=== PATIENT | female | born 1945 | race Native Hawaiian/Other Pacific Islander ===

== ENCOUNTER 2016-11-09 12:43 | Inpatient (IN) | payer MEDICARE, OTHER ==
[2016-11-09] MEDS ORDERED: DUONEB 0.5-3 MG/3 ml Neb IH ONE ×2 (12:56→13:13)
--- NOTE | 2016-11-09 13:05 | ERPHSYRPT ---
- History of Present Illness Time Seen by Provider: 11/09/16 12:47 Source: patient Exam Limitations: no limitations Physician History: cough x 2 weeks; getting worse; fever and chills - hasn't measured; no travel; no exposures; cough productive green phleghm; non-smoker; some ALCALA not at rest; chest discomfort with coughing only; no orthopnea; sinus d/c; no prior hx; Timing/Duration: today (worse), week(s) (2), intermittent, gradual onset, worse Cough Quality/Degree: moderate, productive cough (green) Possible Cause: no prior episodes Modifying Factors: Improves With: coughing Associated Symptoms: fever, chills, chest pain/soreness (with coughing only), cough, nasal congestion, shortness of breath, sinus infection International travel in last 2 weeks: No Allergies/Adverse Reactions: cortisone Allergy (Severe, Verified 11/09/16 13:02) swelling of lips Home Medications: Aspirin 81 mg PO 11/09/16 [History] Lisinopril 20 mg PO 11/09/16 [History] - Review of Systems Constitutional: Fever, Chills, Malaise Eyes: No Symptoms Ears, Nose, & Throat: Nose Congestion, Throat Pain, No Ear Pain, No Epistaxis Respiratory: Cough, Dyspnea on Exertion (ALCALA), No Cyanosis, No Dyspnea, No Wheezing Cardiac: Chest Pain (with coughing only), No Edema, No Palpitations, No Syncope , No Orthopnea Abdominal/Gastrointestinal: Nausea, Diarrhea (slight loose stools x 2 days; ), No Abdominal Pain, No Vomiting, No Hematemesis, No Melena Genitourinary Symptoms: No Dysuria, No Hematuria, No Flank Pain, No Vaginal Bleeding Musculoskeletal: Arthralgias, No Back Pain, No Neck Pain, No Fall Skin: No Symptoms Neurological: No Symptoms Psychological: No Symptoms Endocrine: No Symptoms Hematologic/Lymphatic: No Symptoms Immunological/Allergic: No Symptoms - Past Medical History Pertinent Past Medical History: Yes Cardiac History: Congestive Heart Failure, Coronary Artery Disease, Hypertension Respiratory History: No Pertinent History Endocrine Medical History: No Pertinent History Musculoskeletal History: Arthritis GI Medical History: No Pertinent History History: No Pertinent History Psycho-Social History: No Pertinent History - Past Surgical History Past Surgical History: Yes Female Surgical History: Tubal Ligation Other Surgical History: ear tubes - Social History Smoking Status: Never smoker Exposure to second hand smoke: No Alcohol Use: None Drug Use: none Patient Lives Alone: Yes Significant Family History: heart disease, hypertension - Female History Hx Now: No - Nursing Vital Signs Nursing Vital Signs: Initial Vital Signs Temperature 98.6 F 11/09/16 12:46 Pulse Rate 76 11/09/16 12:46 Respiratory Rate 22 11/09/16 12:46 Blood Pressure 186/78 11/09/16 12:46 O2 Sat by Pulse Oximetry 92 L 11/09/16 12:46 Pain Scale Pain Intensity 0 - Physical Exam General Appearance: moderate distress, alert, obese Eye Exam: PERRL/EOMI, eyes nml inspection, No photophobia Ears, Nose, Throat Exam: normal ENT inspection, TMs normal, pharynx normal, moist mucous membranes, No tonsillar exudate Neck Exam: normal inspection, non-tender, supple, full range of motion, JVD ( borderline), No meningismus, No carotid bruit, No lymphadenopathy, No subcutaneous emphysema Respiratory Exam: respiratory distress (mild tachypnea), airway intact, diminished breath sounds, crackles/rales (bases), wheezing (end expiratory), No chest tenderness, No prolonged expirations, No rhonchi, No pleural rub Cardiovascular Exam: regular rate/rhythm, normal heart sounds, normal peripheral pulses, capillary refill 2-3 sec, No murmur, No friction rub, No edema Gastrointestinal/Abdomen Exam: soft, normal bowel sounds, No tenderness, No distention, No guarding, No pulsatile mass, No rebound, No organomegaly Pelvic Exam: not done Rectal Exam: deferred Back Exam: normal inspection, normal range of motion, No CVA tenderness, No vertebral tenderness, No rash Extremity Exam: normal inspection, normal range of motion, No pelvis stable, No cameron's sign, No pedal edema Neurologic Exam: alert, oriented x 3, cooperative, 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, normal mood/affect, nml cerebellar function, nml station & gait Skin Exam: normal color, warm, dry, No rash, No petechiae, No cyanosis Lymphatic Exam: No adenopathy SpO2 Interpretation: borderline oxygenation SpO2: 94 Oxygen Delivery: Room Air - Course Nursing assessment & vital signs reviewed: Yes EKG Interpreted by Me: RATE (77), Sinus Rhythm, NORMAL AXIS, NORMAL INTERVALS, NORMAL QRS, Non-specific ST Changes (T wave inversion !; AVL; V3-V6; ) Rhythm Strip: Rate (76), Normal Sinus Rhythm - Radiology Exams Chest X-ray Interpretation: Interpreted by me, No Pneumonia, No Pneumothorax, Nml Heart Size, No Infiltrates, Other (multiple calcified granulomas) - CT Exams Chest CT Interpretation: Tele-radiologist Report, Other (no PE; old changes ) Ordered Tests: Active Orders 24 hr Category Date Time Status Bedrest with BRP/BSC ROUTINE Activity 11/09/16 15:59 Ordered Admission/Status Order ROUTINE Care 11/09/16 15:59 Ordered Oncologist STAT Care 11/09/16 12:56 Active Code Status Order ROUTINE Care 11/09/16 15:59 Ordered EKG-ER Only STAT Care 11/09/16 12:56 Active Fall Protocol ROUTINE Care 11/09/16 16:00 Ordered IV Care Q6H Care 11/09/16 15:59 Ordered IV Insertion STAT Care 11/09/16 12:56 Active Oxygen-ED Only NASAL CANNULA 2 lpm Care 11/09/16 14:08 Active Pulse Oximetry (ED) STAT Care 11/09/16 12:56 Active Hernando Hose, Apply ROUTINE Care 11/09/16 15:59 Ordered Telemetry ROUTINE Care 11/09/16 15:59 Ordered Weight,Daily 0600 Care 11/09/16 15:59 Ordered Cardiac Diet Diet 11/09/16 Dinner Ordered CHEST 1 VIEW (PORTABLE) Stat Exams 11/09/16 12:56 Taken CHEST WITH CONTRAST [CT] Stat Exams 11/09/16 13:47 Taken BLOOD CULTURE Stat Lab 11/09/16 15:51 Ordered CBC W DIFF Stat Lab 11/09/16 13:18 Completed CMP Stat Lab 11/09/16 13:18 Completed CULTURE,SPUTUM Stat Lab 11/09/16 14:00 Received D-DIMER QUANTITATION Stat Lab 11/09/16 13:18 Completed Lactic Acid Stat Lab 11/09/16 Completed NT PRO BNP Stat Lab 11/09/16 13:18 Completed PROTIME WITH INR Stat Lab 11/09/16 13:18 Completed TROPONIN Q3H Lab 11/09/16 13:18 Completed TROPONIN Q3H Lab 11/09/16 16:00 Ordered TROPONIN Q3H Lab 11/09/16 19:00 Ordered TROPONIN Q3H Lab 11/09/16 22:00 Ordered TROPONIN Q3H Lab 11/10/16 01:00 Ordered Oxygen NASAL CANNULA 2 lpm RT 11/09/16 15:59 Ordered Peak Expiratory Flow Rate BEFORE&AFTER NEB TX RT 11/09/16 16:00 Ordered Peak Expiratory Flow Rate ONCE RT 11/09/16 12:56 Completed Pulse Oximetry CONTINUOUS RT 11/09/16 16:00 Ordered Respiratory Nebulizer Q4H RT 11/09/16 15:59 Ordered Respiratory Nebulizer STAT RT 11/09/16 12:59 Completed Respiratory Therapy Consult ROUTINE RT 11/09/16 15:59 Ordered Transfer Order Routine Transfer 11/09/16 Ordered Medication Summary Generic Name Dose Route Start Last Admin Trade Name Freq PRN Reason Stop Dose Admin Ceftriaxone Sodium/Dextrose 1 g in 50 mls @ 100 mls/hr 11/09/16 15:52 Rocephin 1 Gm-D5w 50 Ml Bag IV 11/09/16 16:21 STAT STA Discontinued Medications Generic Name Dose Route Start Last Admin Trade Name Freq PRN Reason Stop Dose Admin Albuterol/Ipratropium 3 ml 11/09/16 12:56 11/09/16 13:10 Duoneb 0.5-3 Mg/3 Ml Neb IH 11/09/16 12:57 3 ml STAT ONE Administration Albuterol/Ipratropium Confirm 11/09/16 13:13 Duoneb 0.5-3 Mg/3 Ml Neb Administered 11/09/16 13:14 Dose 3 ml IH .STK-MED ONE Captopril 25 mg 11/09/16 14:17 11/09/16 14:21 Captopril 25 Mg PO 11/09/16 14:18 25 mg STAT ONE Administration Captopril Confirm 11/09/16 14:19 Captopril 25 Mg Administered 11/09/16 14:20 Dose 25 mg .ROUTE .STK-MED ONE Nitroglycerin 1 gm 11/09/16 14:17 11/09/16 14:21 Nitro-Bid 2% Ud Packets TOP 11/09/16 14:18 1 gm STAT ONE Administration Nitroglycerin Confirm 11/09/16 14:19 Nitro-Bid 2% Ud Packets Administered 11/09/16 14:20 Dose 1 gm .ROUTE .STK-MED ONE Lab/Rad Data: Laboratory Result Diagrams 11/09/16 13:18 11/09/16 13:18 Laboratory Results 11/09/16 11/09/16 11/09/16 Range/Units Unknown 13:18 13:18 WBC (4.0-10.5) K/mm3 RBC (4.1-5.4) M/mm3 Hgb (12.0-16.0) gm/dl Hct (35-47) % MCV (78-100) fl MCH (26-32) pg MCHC (32-36) g/dl RDW (11.5-14.0) % Plt Count (150-450) K/mm3 MPV (6-9.5) fl Gran % (36.0-66.0) % Lymphocytes % (24.0-44.0) % Monocytes % (0.0-12.0) % Eosinophils % (0.00-5.0) % Basophils % (0.0-0.4) % Basophils # (0-0.4) INR (0.8-3.0) D-Dimer (0-500) ng/mL Sodium (136-145) mEq/L Potassium (3.5-5.1) mEq/L Chloride (98-107) mEq/L Carbon Dioxide (21-32) mEq/L Anion Gap (5-15) MEQ/L BUN (9-20) mg/dL Creatinine (0.55-1.30) mg/dl Estimated GFR ML/MIN Glucose (70-110) MG/DL Lactic Acid 1.1 (0.4-2.0) Calcium (8.5-10.1) mg/dL Total Bilirubin (0.2-1.0) mg/dL AST (15-37) U/L ALT (12-78) U/L Alkaline Phosphatase (46-116) U/L Troponin I < 0.017 (0.000-0.056) ng/ml NT-Pro-B Natriuret Pep (0-125) pg/ml Serum Total Protein (6.4-8.2) gm/dL Albumin (3.4-5.0) g/dL Influenza Type A Ag NEGATIVE (NEGATIVE) Influenza Type B Ag NEGATIVE (NEGATIVE) RSV (PCR) NEGATIVE (Negative) 11/09/16 11/09/16 11/09/16 Range/Units 13:18 13:18 13:18 WBC 15.4 H (4.0-10.5) K/mm3 RBC 5.17 (4.1-5.4) M/mm3 Hgb 15.4 (12.0-16.0) gm/dl Hct 46.9 (35-47) % MCV 90.7 (78-100) fl MCH 29.8 (26-32) pg MCHC 32.8 (32-36) g/dl RDW 13.1 (11.5-14.0) % Plt Count 244 (150-450) K/mm3 MPV 10.6 H (6-9.5) fl Gran % 64.0 (36.0-66.0) % Lymphocytes % 24.5 (24.0-44.0) % Monocytes % 9.3 (0.0-12.0) % Eosinophils % 1.9 (0.00-5.0) % Basophils % 0.3 (0.0-0.4) % Basophils # 0.05 (0-0.4) INR 1.11 (0.8-3.0) D-Dimer 628 H* (0-500) ng/mL Sodium 141 (136-145) mEq/L Potassium 3.7 (3.5-5.1) mEq/L Chloride 103 (98-107) mEq/L Carbon Dioxide 28.5 (21-32) mEq/L Anion Gap 13.4 (5-15) MEQ/L BUN 11 (9-20) mg/dL Creatinine 0.78 (0.55-1.30) mg/dl Estimated GFR > 60 ML/MIN Glucose 123 H (70-110) MG/DL Lactic Acid (0.4-2.0) Calcium 9.3 (8.5-10.1) mg/dL Total Bilirubin 0.60 (0.2-1.0) mg/dL AST 22 (15-37) U/L ALT 18 (12-78) U/L Alkaline Phosphatase 105 (46-116) U/L Troponin I (0.000-0.056) ng/ml NT-Pro-B Natriuret Pep 823 H (0-125) pg/ml Serum Total Protein 7.5 (6.4-8.2) gm/dL Albumin 3.8 (3.4-5.0) g/dL Influenza Type A Ag (NEGATIVE) Influenza Type B Ag (NEGATIVE) RSV (PCR) (Negative) reviewed - Progress Progress: improved (after respiratory treatment), re-examined (after meds and xr ) Air Movement: fair, good (air movement after duo neb treatment) Progress Note: 11/09/16 13:09 EKG non-specific; no STEMI; T wave inverted !; AVL; V3-V6; CXR and lab pending; will give duo neb and check peak flow and recheck 11/09/16 13:25 peak flow pre and post 170; coughs when takes a deep breath; moving air well; a few scattered broncho-vesicular BS but otherwise clear after, CXR NAD; lactic wnl; VS improved; will monitor and recheck 11/09/16 13:40 Resting comfortably; moving air well; pulse ox 90% on room air but no complaint of SOB; no increase in respiratory distress; vital signs stable; breath sounds clear;we'll continue to monitor ; CBC shows an elevated white count of 15.4 11/09/16 13:52 D Dimer elevated and CT with contrast ordered to evaluate for PE 11/09/16 14:08 INR ok; recheck shows pulse ox dropped to 87-88 so placed patient on 2 l O2; sats improved to 92%; cT pending renal lab results; explained labs results to patient; 11/09/16 14:12 Troponin wnl 11/09/16 14:16 renal function ok and will proceed with CT; pBNP elevated so will give some NTG and captopril and recheck 11/09/16 14:46 INflu all neg and rsv neg; patient in CT ; results pending; will monitor and recheck 11/09/16 15:[address]; tolerated well; Sats now 97% on 2 l nc; vs ok; moving air better; results pending; will monitor and recheck 11/09/16 15:56 CT neg for PE; discussed findings and treatment plan with patient; concurs with admission due to hypoxia on room air; Dr Jimenez on service consulted and will admit. Bed requested. writing orders Blood Culture(s) Obtained: Yes Antibiotics given: Yes (rocephin) Discussed with : Mando (consulted on service and accepted for admission) Counseled pt/family regarding: lab results, diagnosis, need for follow-up, rad results - Departure Time of Disposition: 15:57 Departure Disposition: Observation Clinical Impression: Hypoxia, Acute bronchiolitis, Dyspnea and respiratory abnormalities Condition: Serious Critical Care Time: Yes Critical Care Time(excluding separately billable procedures): 30-74 minutes Referrals: DOCTOR,NO FAMILY [Primary Care Provider] - KALPESH JIMENEZ MD [ACTIVE STAFF] -
[2016-11-09 13:23] LABS: BASOPHIL % 0.3 % (0.0-0.4); Eosinophil % 1.9 % (0.00-5.0); Lymphocytes % 24.5 % (24.0-44.0); Mean Cell Volume 90.7 fl (78-100); Mean Corpuscular Hemoglobin 29.8 pg (26-32); Mean Platelet Volume 10.6 fl (6-9.5); Monocytes % 9.3 % (0.0-12.0); Platelet Count 244 K/mm3 (150-450); Red Blood Count 5.17 M/mm3 (4.1-5.4); Red Cell Distribution Width 13.1 % (11.5-14.0); White Blood Count 15.4 K/mm3 (4.0-10.5)
[2016-11-09 13:33] LABS: INR 1.11 (0.8-3.0); PROTIME 12.6 SECONDS (9.95-12.35)
[2016-11-09 13:49] LABS: ALBUMIN 3.8 g/dL (3.4-5.0); ALKALINE PHOSPHATASE 105 U/L (46-116); ANION GAP 13.4 MEQ/L (5-15); BLOOD UREA NITROGEN 11 mg/dL (9-20); CHLORIDE 103 mEq/L (98-107); Carbon Dioxide 28.5 mEq/L (21-32); Glucose 123 MG/DL (70-110); Potassium 3.7 mEq/L (3.5-5.1); SGOT/AST 22 U/L (15-37); SGPT/ALT 18 U/L (12-78); SODIUM 141 mEq/L (136-145); Total Protein 7.5 gm/dL (6.4-8.2)
[2016-11-09] MEDS ORDERED: CAPTOPRIL 25 MG PO ONE (14:17)
[2016-11-09] MEDS ORDERED: NITRO-BID 2% UD PACKETS TOP ONE (14:17)
[2016-11-09] MEDS ORDERED: CAPTOPRIL 25 MG ONE (14:19)
[2016-11-09] MEDS ORDERED: NITRO-BID 2% UD PACKETS ONE (14:19)
[2016-11-09] MEDS ORDERED: ROCEPHIN 1 Gm-D5w 50 ml Bag** 1 G/50 ML IVPB IV STA (15:52)
[2016-11-09] MEDS ORDERED: Sodium Chloride 0.9% 1000 ML 1,000 ML IV SCH (16:00)
[2016-11-09] MEDS ORDERED: ROCEPHIN 1 Gm-D5w 50 ml Bag** 1 G/50 ML IVPB IV ONE (16:12)
[2016-11-09] MEDS ORDERED: Zithromax 500 MG/ 250 ML NaCl Premix 500 MG/250 ML IVPB IV STA (16:19)
[2016-11-09] MEDS ORDERED: Zithromax 500 MG/ 250 ML NaCl Premix 500 MG/250 ML IVPB IV ONE (16:24)
[2016-11-09] MEDS ORDERED: DUONEB 0.5-3 MG/3 ml Neb IH PRN (17:08)
[2016-11-09] MEDS ORDERED: Zofran 4 MG/2 ML VIAL IV PRN (17:48)
[2016-11-09] MEDS: Sodium Chloride 0.9% 1000 ML 1,000 ML IV SCH (17:50)
[2016-11-09] MEDS ORDERED: Zithromax 500 MG/ 250 ML NaCl Premix 500 MG/250 ML IVPB IV SCH (18:00)
[2016-11-09] MEDS ORDERED: DUONEB 0.5-3 MG/3 ml Neb IH SCH (19:00)
[2016-11-09] MEDS ORDERED: ENOXAPARIN SODIUM SQ SCH (20:00)
--- NOTE | 2016-11-09 21:21 | XRAY ---
Indication: Cough, short of breath, and elevated d-dimer. Multiple contiguous axial images obtained through the chest using 80 cc of Isovue-370 contrast and PE protocol. Comparison: None There is good opacification of the pulmonary arteries including the lobar and segmental branches. No filling defect or pulmonary embolus. Heart is not enlarged. Aorta is minimally arteriosclerotic without aneurysm/dissection. Right hilar calcified nodes. No pathologic mediastinal/hilar lymphadenopathy. Small hiatal hernia. Examination of the lung parenchyma demonstrates minimal bibasilar fibrosis/scarring and right lower lobe calcified granuloma. No infiltrate, consolidation, or effusion. Bony thorax intact with minimal degenerative changes throughout the spine. Limited upper abdomen demonstrates fatty liver and calcified splenic granulomas. Impression: 1. Negative for pulmonary embolus or acute cardiopulmonary abnormalities. 2. Incidental small hiatal hernia, fatty liver, and evidence for old granulomatous disease. Comment: Preliminary interpretation was made by [facility]. No discrepancy. CTDI 23.17
--- NOTE | 2016-11-09 21:21 | XRAY ---
Indication: Cough. Comparison: None Portable chest demonstrates normal heart and lungs with incidental calcified granulomas. Bony thorax intact.
[2016-11-09] MEDS: Pepcid 20 MG VIAL IV SCH (21:47)
[2016-11-09] MEDS: ENOXAPARIN SODIUM SQ SCH (21:47)
[2016-11-09] MEDS ORDERED: Pepcid 20 MG VIAL IV SCH (22:00)
[2016-11-09] MEDS ORDERED: Zestril 20 MG PO ONE (22:00)
[2016-11-09] MEDS ORDERED: ECOTRIN 81 MG PO ONE (22:00)
[2016-11-10] MEDS ORDERED: Tussionex Pennkinetic Susp PO PRN (01:05)
[2016-11-10 05:43] LABS: Mean Cell Volume 92.3 fl (78-100); Mean Corpuscular Hemoglobin 29.6 pg (26-32); Platelet Count 234 K/mm3 (150-450); Red Blood Count 4.67 M/mm3 (4.1-5.4); White Blood Count 13.9 K/mm3 (4.0-10.5)
[2016-11-10 06:30] LABS: ALKALINE PHOSPHATASE 79 U/L (46-116); ANION GAP 10.7 MEQ/L (5-15); BLOOD UREA NITROGEN 12 mg/dL (9-20); CHLORIDE 105 mEq/L (98-107); Carbon Dioxide 29.8 mEq/L (21-32); Glucose 131 MG/DL (70-110); Potassium 3.6 mEq/L (3.5-5.1); SGOT/AST 16 U/L (15-37); SGPT/ALT 16 U/L (12-78); SODIUM 142 mEq/L (136-145); Total Protein 6.7 gm/dL (6.4-8.2)
--- NOTE | 2016-11-10 08:09 | PCM.HP ---
History of Present Illness - Chief Complaint Chief Complaint: Hypoxia; Acute Bronchiolitis;Dypsnea History of Present Illness: is a 70 year old female with no local physician who reports to the ER with 1 week history of cough with green sputum production, shortness of breath and wheezing. She is a nonsmoker but previously used tobacco, her is a longtime smoker with advanced copd. She has some sharp pain in the anterior chest with cough. - Review of Systems Constitutional: No Fever, No Chills Ears, Nose, & Throat: No Symptoms Respiratory: Cough, Short Of Breath Cardiac: Chest Pain Abdominal/Gastrointestinal: No Abdominal Pain, No Nausea, No Vomiting, No Diarrhea Genitourinary Symptoms: No Dysuria Skin: No Rash All Other Systems: Reviewed and Negative Medications & Allergies Home Medications: Home Medication List Aspirin 81 mg PO DAILY 11/09/16 [History Confirmed 11/09/16] Lisinopril 20 mg PO DAILY 11/09/16 [History Confirmed 11/09/16] Allergies/Adverse Reactions: Allergies Allergy/AdvReac Type Severity Reaction Status Date / Time cortisone Allergy Severe swelling Verified 11/09/16 13:02 of lips - Past Medical History Past Medical History: Yes Neurological History: No Pertinent History ENT History: No Pertinent History Cardiac History: Congestive Heart Failure, Coronary Artery Disease, Hypertension Respiratory History: No Pertinent History Endocrine Medical History: No Pertinent History Musculoskelatal History: Arthritis GI Medical History: No Pertinent History History: No Pertinent History Pyscho-Social History: No Pertinent History Reproductive Disorders: No Pertinent History Comment: myopathy - Female History Hx Last Menstrual Period: menopause Are you now?: No - Past Surgical History Past Surgical History: Yes Neuro Surgical History: No Pertinent History Cardiac History: Internal Defibrillator Respiratory Surgery: No Pertinent History GI Surgical History: No Pertinent History Genitourinary Surgical Hx: No Pertinent History Musculskeletal Surgical Hx: No Pertinent History Female Surgical History: Tubal Ligation Other Surgical History: ear tubes - Social History Smoking Status: Former smoker How long have you smoked: 10-15 year Exposure to second hand smoke: Yes Alcohol: None Drug Use: none Significant Family History: heart disease, hypertension - Physical Exam Vital Signs: Vital Signs - 24 hr Temp Pulse Resp BP Pulse Ox 11/10/16 07:36 98.8 F 89 20 174/82 96 11/10/16 07:19 74 18 96 11/10/16 04:00 98.1 F 78 20 184/77 95 11/10/16 00:00 98.7 F 75 20 184/79 97 11/09/16 19:42 98.4 F 73 22 176/74 92 L 11/09/16 18:40 83 18 93 L 11/09/16 17:14 98.4 F 74 18 156/72 93 L 11/09/16 17:10 74 18 94 L 11/09/16 16:09 79 16 183/78 92 L 11/09/16 16:02 94 L 11/09/16 15:10 78 20 194/88 94 L 11/09/16 14:24 80 20 210/70 96 11/09/16 14:09 80 18 185/65 92 L 11/09/16 13:37 88 18 178/77 90 L 11/09/16 13:08 94 L 11/09/16 12:59 77 18 92 L 11/09/16 12:46 98.6 F 76 20 186/78 94 L Oxygen-Last 24 hours O2 Percentage 2 Liters = 28% O2 Percentage 2 Liters = 28% O2 Percentage 2 Liters = 28% O2 Percentage 2 Liters = 28% O2 Percentage 2 Liters = 28% O2 Percentage 2 Liters = 28% O2 Percentage 2 Liters = 28% O2 Percentage 2 Liters = 28% O2 Percentage 2 Liters = 28% General Appearance: no apparent distress, alert Eye Exam: PERRL/EOMI, eyes nml inspection Respiratory Exam: prolonged expirations, wheezing Cardiovascular Exam: regular rate/rhythm, normal heart sounds, normal peripheral pulses Gastrointestinal/Abdomen Exam: soft, normal bowel sounds, No tenderness, No mass Extremity Exam: normal inspection, normal range of motion, pelvis stable Skin Exam: normal color, warm, dry, No rash Results - Labs Lab/Micro Results: Lab Results-Last 24 Hours 11/09/16 11/09/16 11/09/16 Range/Units 19:10 22:05 Unknown WBC (4.0-10.5) K/mm3 RBC (4.1-5.4) M/mm3 Hgb (12.0-16.0) gm/dl Hct (35-47) % MCV (78-100) fl MCH (26-32) pg MCHC (32-36) g/dl RDW (11.5-14.0) % Plt Count (150-450) K/mm3 MPV (6-9.5) fl Sodium (136-145) mEq/L Potassium (3.5-5.1) mEq/L Chloride (98-107) mEq/L Carbon Dioxide (21-32) mEq/L Anion Gap (5-15) MEQ/L BUN (9-20) mg/dL Creatinine (0.55-1.30) mg/dl Estimated GFR ML/MIN Glucose (70-110) MG/DL Lactic Acid 1.1 (0.4-2.0) Calcium (8.5-10.1) mg/dL Total Bilirubin (0.2-1.0) mg/dL AST (15-37) U/L ALT (12-78) U/L Alkaline Phosphatase (46-116) U/L Troponin I < 0.017 < 0.017 (0.000-0.056) ng/ml Serum Total Protein (6.4-8.2) gm/dL Albumin (3.4-5.0) g/dL 11/10/16 11/10/16 11/10/16 Range/Units 00:55 05:06 05:06 WBC 13.9 H (4.0-10.5) K/mm3 RBC 4.67 (4.1-5.4) M/mm3 Hgb 13.8 (12.0-16.0) gm/dl Hct 43.1 (35-47) % MCV 92.3 (78-100) fl MCH 29.6 (26-32) pg MCHC 32.0 (32-36) g/dl RDW 13.0 (11.5-14.0) % Plt Count 234 (150-450) K/mm3 MPV 11.0 H (6-9.5) fl Sodium 142 (136-145) mEq/L Potassium 3.6 (3.5-5.1) mEq/L Chloride 105 (98-107) mEq/L Carbon Dioxide 29.8 (21-32) mEq/L Anion Gap 10.7 (5-15) MEQ/L BUN 12 (9-20) mg/dL Creatinine 0.76 (0.55-1.30) mg/dl Estimated GFR > 60 ML/MIN Glucose 131 H (70-110) MG/DL Lactic Acid (0.4-2.0) Calcium 8.7 (8.5-10.1) mg/dL Total Bilirubin 0.50 (0.2-1.0) mg/dL AST 16 (15-37) U/L ALT 16 (12-78) U/L Alkaline Phosphatase 79 (46-116) U/L Troponin I < 0.017 (0.000-0.056) ng/ml Serum Total Protein 6.7 (6.4-8.2) gm/dL Albumin 3.0 L (3.4-5.0) g/dL - Other Procedures and Tests Respiratory Therapy 11/09/16 17:09 Oxygen NASAL CANNULA 2 lpm Respiratory Nebulizer UD Assessment/Plan (1) Acute bronchitis with bronchospasm Current Visit: Yes Status: Acute Assessment & Plan: continue rocphin/zithromax, nebs and add solumedrol Code(s): J20.9 - ACUTE BRONCHITIS, UNSPECIFIED (2) Hypoxia Current Visit: Yes Status: Acute Assessment & Plan: likely has an underlying element of copd, will treat exacerbation as above, currently on supplemental oxygen Code(s): R09.02 - HYPOXEMIA (3) Hypertension Current Visit: Yes Status: Acute Assessment & Plan: on lisinopril Code(s): I10 - ESSENTIAL (PRIMARY) HYPERTENSION
[2016-11-10] MEDS ORDERED: solu-MEDROL 125 MG IV SCH (08:30)
[2016-11-10 08:53] LABS: Eosinophil 1 % (0.00-3.0); Total Cells Counted 100
[2016-11-10 08:54] LABS: Platelet Estimate NORMAL (NORMAL)
[2016-11-10] MEDS: DUONEB 0.5-3 MG/3 ml Neb IH SCH ×4 (09:08→22:55)
[2016-11-10] MEDS: ENOXAPARIN SODIUM SQ SCH (09:53)
[2016-11-10] MEDS: ECOTRIN 81 MG PO SCH (09:54)
[2016-11-10] MEDS: Pepcid 20 MG VIAL IV SCH ×2 (09:54→21:48)
[2016-11-10] MEDS: Zestril 20 MG PO SCH (09:54)
[2016-11-10] MEDS ORDERED: ROCEPHIN 1 Gm-D5w 50 ml Bag** 1 G/50 ML IVPB IV SCH (10:00)
[2016-11-10] MEDS ORDERED: NON-FORMULARY ITEM (Aspirin [Aspirin] 81 MG) PO SCH (10:00)
[2016-11-10] MEDS: Tussionex Pennkinetic Susp PO PRN (13:07)
[2016-11-10] MEDS: NORVASC 5 MG PO SCH (13:07)
[2016-11-10] MEDS: Sodium Chloride 0.9% 1000 ML 1,000 ML IV SCH (13:07)
[2016-11-10] MEDS ORDERED: PROVENTIL 2.5 MG/3 ML NEB IH PRN (14:43)
[2016-11-10] MEDS: ROCEPHIN 1 Gm-D5w 50 ml Bag** 1 G/50 ML IVPB IV SCH (15:04)
[2016-11-10] MEDS: Zithromax 500 MG/ 250 ML NaCl Premix 500 MG/250 ML IVPB IV SCH (17:02)
[2016-11-11] MEDS: DUONEB 0.5-3 MG/3 ml Neb IH SCH ×6 (02:57→23:20)
[2016-11-11 05:42] LABS: BASOPHIL % 0.2 % (0.0-0.4); Eosinophil % 1.8 % (0.00-5.0); Mean Corpuscular Hemoglobin 29.8 pg (26-32); Platelet Count 228 K/mm3 (150-450); White Blood Count 13.7 K/mm3 (4.0-10.5)
[2016-11-11 06:06] LABS: ALKALINE PHOSPHATASE 79 U/L (46-116); ANION GAP 11.2 MEQ/L (5-15); BLOOD UREA NITROGEN 10 mg/dL (9-20); CHLORIDE 105 mEq/L (98-107); Carbon Dioxide 28.6 mEq/L (21-32); Glucose 161 MG/DL (70-110); Potassium 3.5 mEq/L (3.5-5.1); SGOT/AST 16 U/L (15-37); SGPT/ALT 15 U/L (12-78); SODIUM 141 mEq/L (136-145); Total Protein 6.8 gm/dL (6.4-8.2)
--- NOTE | 2016-11-11 08:21 | PCM.NOTE ---
Date and Time: 11/11/16818 Subjective Assessment: patient still has significant cough, no new complaints. still requiring oxygen Objective Exam General Appearance: no apparent distress, alert Skin Exam: normal color, warm, dry Respiratory Exam: prolonged expirations, rhonchi, No wheezing Cardiovascular Exam: regular rate/rhythm, normal heart sounds Gastrointestinal/Abdomen Exam: soft, No tenderness, No mass Extremity Exam: normal inspection, normal range of motion OBJECTIVE DATA Vital Signs: Vital Signs - 24 hr Temp Pulse Resp BP Pulse Ox 11/11/16 07:55 98.2 F 79 16 192/78 96 11/11/16 07:00 74 18 96 11/11/16 04:14 98.8 F 85 20 191/79 98 11/11/16 02:59 92 H 22 11/10/16 23:41 98.3 F 91 H 18 181/75 94 L 11/10/16 22:55 88 24 96 11/10/16 20:00 98.9 F 92 H 20 184/74 92 L 11/10/16 18:34 84 24 96 11/10/16 16:00 98.5 F 81 20 186/76 94 L 11/10/16 14:41 79 22 91 L 11/10/16 12:00 74 22 187/79 96 11/10/16 10:57 97.8 F 75 20 194/81 95 11/10/16 09:10 96 H 18 97 Oxygen-Last 24 hours O2 Percentage 2 Liters = 28% O2 Percentage 2 Liters = 28% O2 Percentage 2 Liters = 28% O2 Percentage 2 Liters = 28% O2 Percentage 2 Liters = 28% O2 Percentage 2 Liters = 28% O2 Percentage 2 Liters = 28% Pain Assessment - Last Documented Pain Intensity 0 [facility] Intake and Output: Intake & Output 11/08/16 11/09/16 11/10/16 11/11/16 11:59 11:59 11:59 11:59 Intake Total 1583 2389 Balance 1583 2389 Weight 94.347 kg 95.481 kg Lab Results: Lab Results-Last 24 Hours 11/10/16 11/11/16 11/11/16 Range/Units 05:06 05:00 05:00 WBC 13.7 H (4.0-10.5) K/mm3 RBC 4.30 (4.1-5.4) M/mm3 Hgb 12.8 (12.0-16.0) gm/dl Hct 40.0 (35-47) % MCV 93.0 (78-100) fl MCH 29.8 (26-32) pg MCHC 32.0 (32-36) g/dl RDW 13.0 (11.5-14.0) % Plt Count 228 (150-450) K/mm3 MPV 11.0 H (6-9.5) fl Gran % 66.0 (36.0-66.0) % Lymphocytes % 22.0 L (24.0-44.0) % Monocytes % 10.0 (0.0-12.0) % Eosinophils % 1.8 (0.00-5.0) % Basophils % 0.2 (0.0-0.4) % Segmented Neutrophils 59 (36.0-66.0) % Lymphocytes (Manual) 32 (24-44) % Monocytes (Manual) 8 (0.0-12.0) % Eosinophils (Manual) 1 (0.00-3.0) % Basophils # 0.03 (0-0.4) Differential Comment NORMAL Platelet Estimate NORMAL (NORMAL) Sodium 141 (136-145) mEq/L Potassium 3.5 (3.5-5.1) mEq/L Chloride 105 (98-107) mEq/L Carbon Dioxide 28.6 (21-32) mEq/L Anion Gap 11.2 (5-15) MEQ/L BUN 10 (9-20) mg/dL Creatinine 0.83 (0.55-1.30) mg/dl Estimated GFR > 60 ML/MIN Glucose 161 H (70-110) MG/DL Calcium 8.6 (8.5-10.1) mg/dL Total Bilirubin 0.30 (0.2-1.0) mg/dL AST 16 (15-37) U/L ALT 15 (12-78) U/L Alkaline Phosphatase 79 (46-116) U/L Serum Total Protein 6.8 (6.4-8.2) gm/dL Albumin 3.0 L (3.4-5.0) g/dL Multi-Disciplinary Progress Notes: Multi-Disciplinary Progress Notes 11/10/16 14:50 Respiratory Note by Angela Amador HUMIDITY ADDED TO OXYGEN Initialized on 11/10/16 14:50 - END OF NOTE Assessment/Plan (1) Acute bronchitis with bronchospasm Current Visit: Yes Status: Acute Assessment & Plan: breath sounds improved, continue rocephin/zithromax and nebulizer treatments Code(s): J20.9 - ACUTE BRONCHITIS, UNSPECIFIED (2) Hypoxia Current Visit: Yes Status: Acute Code(s): R09.02 - HYPOXEMIA (3) Hypertension Current Visit: Yes Status: Acute Assessment & Plan: added amlodipine 5mg yesterday, has had 1 dose, currently on lisinopril home dose Code(s): I10 - ESSENTIAL (PRIMARY) HYPERTENSION
[2016-11-11] MEDS: ENOXAPARIN SODIUM SQ SCH (10:18)
[2016-11-11] MEDS: ECOTRIN 81 MG PO SCH (10:19)
[2016-11-11] MEDS: Pepcid 20 MG VIAL IV SCH ×2 (10:19→21:13)
[2016-11-11] MEDS: NORVASC 5 MG PO SCH (10:19)
[2016-11-11] MEDS: Zestril 20 MG PO SCH (10:19)
[2016-11-11] MEDS: ROCEPHIN 1 Gm-D5w 50 ml Bag** 1 G/50 ML IVPB IV SCH (10:20)
[2016-11-11] MEDS: Sodium Chloride 0.9% 1000 ML 1,000 ML IV SCH (11:14)
[2016-11-11] MEDS: APRESOLINE 20 MG/ML INJ IV PRN ×2 (11:14→11:59)
[2016-11-11] MEDS ORDERED: Toprol-Xl 25MG Tablets PO ONE (13:25)
[2016-11-11] MEDS ORDERED: MORPHINE SULFATE 4 MG INJ IV PRN ×2 (13:26→19:06)
[2016-11-11] MEDS ORDERED: xanAX 0.5 MG PO PRN (15:32)
[2016-11-11] MEDS: Zithromax 500 MG/ 250 ML NaCl Premix 500 MG/250 ML IVPB IV SCH (16:37)
[2016-11-11] MEDS ORDERED: Tums EX 750 MG PO PRN (19:13)
[2016-11-11] MEDS ORDERED: LOPRESSOR 5 MG/5 ML INJECTION IV ONE (19:15)
[2016-11-11] MEDS ORDERED: Toprol Xl 100 MG PO ONE (19:20)
[2016-11-11] MEDS ORDERED: Ambien 10 MG PO ONE (22:00)
[2016-11-12] MEDS: DUONEB 0.5-3 MG/3 ml Neb IH SCH ×6 (03:20→23:09)
[2016-11-12 06:04] LABS: BASOPHIL % 0.2 % (0.0-0.4); Eosinophil % 1.9 % (0.00-5.0); Granulocytes % 65.4 % (36.0-66.0); Lymphocytes % 22.8 % (24.0-44.0); Mean Cell Volume 91.7 fl (78-100); Mean Corpuscular Hemoglobin 29.7 pg (26-32); Mean Platelet Volume 10.7 fl (6-9.5); Monocytes % 9.7 % (0.0-12.0); Platelet Count 243 K/mm3 (150-450); Red Blood Count 4.68 M/mm3 (4.1-5.4); Red Cell Distribution Width 13.1 % (11.5-14.0); White Blood Count 14.4 K/mm3 (4.0-10.5)
[2016-11-12 06:32] LABS: ALBUMIN 3.1 g/dL (3.4-5.0); ALKALINE PHOSPHATASE 82 U/L (46-116); ANION GAP 10.9 MEQ/L (5-15); BLOOD UREA NITROGEN 9 mg/dL (9-20); CHLORIDE 105 mEq/L (98-107); Carbon Dioxide 29.3 mEq/L (21-32); Glucose 135 MG/DL (70-110); Potassium 3.5 mEq/L (3.5-5.1); SGOT/AST 18 U/L (15-37); SGPT/ALT 15 U/L (12-78); SODIUM 142 mEq/L (136-145); Total Protein 7.2 gm/dL (6.4-8.2)
[2016-11-12] MEDS: Sodium Chloride 0.9% 1000 ML 1,000 ML IV SCH (08:04)
--- NOTE | 2016-11-12 08:55 | PCM.NOTE ---
Date and Time: 11/12/16850 Subjective Assessment: Pt is feeling just a little better today compared with yesterday. States her recovery seems slow. Sputum is more clear and less viscous. - Review of Systems Constitutional: No Fever Respiratory: Cough Objective Exam General Appearance: no apparent distress Neurologic Exam: alert, oriented x 3, cooperative, other (sitting at edge of bed ) Skin Exam: normal color, warm, dry Respiratory Exam: diminished breath sounds, No crackles/rales, No rhonchi Cardiovascular Exam: regular rate/rhythm, normal heart sounds, No murmur Extremity Exam: normal inspection, No pedal edema, No swelling OBJECTIVE DATA Vital Signs: Vital Signs - 24 hr Temp Pulse Resp BP Pulse Ox 11/12/16 06:52 97.9 F 78 20 180/88 96 11/12/16 03:27 79 18 91 L 11/11/16 23:48 80 18 88 L 11/11/16 20:10 83 18 93 L 11/11/16 20:00 98.5 F 91 H 22 201/91 94 L 11/11/16 16:00 98.3 F 87 20 179/76 90 L 11/11/16 14:41 90 22 94 L 11/11/16 12:00 98.2 F 80 18 195/82 93 L 11/11/16 10:48 80 18 93 L Oxygen-Last 24 hours O2 Percentage 2 Liters = 28% O2 Percentage 2 Liters = 28% O2 Percentage 2 Liters = 28% O2 Percentage 2 Liters = 28% Pain Assessment - Last Documented Pain Intensity 4 Pain Scale Used 0-10 Pain Scale Intake and Output: Intake & Output 11/09/16 11/10/16 11/11/16 11/12/16 11:59 11:59 11:59 11:59 Intake Total 240 2389 2161 Balance 240 2389 2161 Weight 95.481 kg 95.617 kg Lab Results: Lab Results-Last 24 Hours 11/11/16 11/11/16 11/12/16 Range/Units 15:01 15:01 05:50 WBC 14.4 H (4.0-10.5) K/mm3 RBC 4.68 (4.1-5.4) M/mm3 Hgb 13.9 (12.0-16.0) gm/dl Hct 42.9 (35-47) % MCV 91.7 (78-100) fl MCH 29.7 (26-32) pg MCHC 32.4 (32-36) g/dl RDW 13.1 (11.5-14.0) % Plt Count 243 (150-450) K/mm3 MPV 10.7 H (6-9.5) fl Gran % 65.4 (36.0-66.0) % Lymphocytes % 22.8 L (24.0-44.0) % Monocytes % 9.7 (0.0-12.0) % Eosinophils % 1.9 (0.00-5.0) % Basophils % 0.2 (0.0-0.4) % Basophils # 0.03 (0-0.4) D-Dimer 680 H* (0-500) ng/mL Sodium (136-145) mEq/L Potassium (3.5-5.1) mEq/L Chloride (98-107) mEq/L Carbon Dioxide (21-32) mEq/L Anion Gap (5-15) MEQ/L BUN (9-20) mg/dL Creatinine (0.55-1.30) mg/dl Estimated GFR ML/MIN Glucose (70-110) MG/DL Calcium (8.5-10.1) mg/dL Total Bilirubin (0.2-1.0) mg/dL AST (15-37) U/L ALT (12-78) U/L Alkaline Phosphatase (46-116) U/L Troponin I < 0.017 (0.000-0.056) ng/ml Serum Total Protein (6.4-8.2) gm/dL Albumin (3.4-5.0) g/dL 11/12/16 Range/Units 05:50 WBC (4.0-10.5) K/mm3 RBC (4.1-5.4) M/mm3 Hgb (12.0-16.0) gm/dl Hct (35-47) % MCV (78-100) fl MCH (26-32) pg MCHC (32-36) g/dl RDW (11.5-14.0) % Plt Count (150-450) K/mm3 MPV (6-9.5) fl Gran % (36.0-66.0) % Lymphocytes % (24.0-44.0) % Monocytes % (0.0-12.0) % Eosinophils % (0.00-5.0) % Basophils % (0.0-0.4) % Basophils # (0-0.4) D-Dimer (0-500) ng/mL Sodium 142 (136-145) mEq/L Potassium 3.5 (3.5-5.1) mEq/L Chloride 105 (98-107) mEq/L Carbon Dioxide 29.3 (21-32) mEq/L Anion Gap 10.9 (5-15) MEQ/L BUN 9 (9-20) mg/dL Creatinine 0.57 (0.55-1.30) mg/dl Estimated GFR > 60 ML/MIN Glucose 135 H (70-110) MG/DL Calcium 9.3 (8.5-10.1) mg/dL Total Bilirubin 0.40 (0.2-1.0) mg/dL AST 18 (15-37) U/L ALT 15 (12-78) U/L Alkaline Phosphatase 82 (46-116) U/L Troponin I (0.000-0.056) ng/ml Serum Total Protein 7.2 (6.4-8.2) gm/dL Albumin 3.1 L (3.4-5.0) g/dL Multi-Disciplinary Progress Notes: Multi-Disciplinary Progress Notes 11/11/16 10:15 (created 11/11/16 16:29) Case Management Note by Martine Mcwilliams DISCHARGE PLAN REVIEWED, PROVIDES SELF CARE, INDEPENDENT WITH ALL ADL'S. DECLINED NEEDS FOR DISCHARGE. PLAN TO RETURN HOME TO PRE EPISODIC LEVEL OF [facility]. Initialized on 11/11/16 16:29 - END OF NOTE Assessment/Plan (1) Acute bronchitis with bronchospasm Current Visit: Yes Status: Acute Assessment & Plan: She is slowly improving on rocephin and zithromax. Still on O2 2L NC. Will likely need at least another day or two of IV antibiotics. Sputum culture ordered. Code(s): J20.9 - ACUTE BRONCHITIS, UNSPECIFIED (2) Hypertension Current Visit: Yes Status: Acute Qualifiers: Hypertension type: essential hypertension Qualified Code(s): I10 - Essential (primary) hypertension Assessment & Plan: Uncontrolled. Amlodipine increased from 5mg po daily to 10mg po daily this morning. BP up in the 170s-200 systolic yesterday. Continue home dose lisinopril. Code(s): I10 - ESSENTIAL (PRIMARY) HYPERTENSION
[2016-11-12] MEDS: Zestril 20 MG PO SCH (09:42)
[2016-11-12] MEDS: ENOXAPARIN SODIUM SQ SCH (09:43)
[2016-11-12] MEDS: NORVASC 5 MG PO SCH (09:43)
[2016-11-12] MEDS: ECOTRIN 81 MG PO SCH (09:43)
[2016-11-12] MEDS: Pepcid 20 MG VIAL IV SCH ×2 (09:44→21:50)
[2016-11-12] MEDS: ROCEPHIN 1 Gm-D5w 50 ml Bag** 1 G/50 ML IVPB IV SCH (09:45)
[2016-11-12] MEDS: TYLENOL 325 MG PO PRN (09:46)
[2016-11-12] MEDS: Zithromax 500 MG/ 250 ML NaCl Premix 500 MG/250 ML IVPB IV SCH (17:11)
[2016-11-12] MEDS: Tussionex Pennkinetic Susp PO PRN (22:01)
[2016-11-13] MEDS: TYLENOL 325 MG PO PRN ×2 (02:21→21:01)
[2016-11-13] MEDS: DUONEB 0.5-3 MG/3 ml Neb IH SCH ×5 (03:30→19:22)
[2016-11-13] MEDS: Sodium Chloride 0.9% 1000 ML 1,000 ML IV SCH (06:58)
[2016-11-13] MEDS: Zestril 20 MG PO SCH ×2 (08:55→10:04)
[2016-11-13] MEDS: Pepcid 20 MG VIAL IV SCH ×2 (08:55→21:01)
[2016-11-13] MEDS: ROCEPHIN 1 Gm-D5w 50 ml Bag** 1 G/50 ML IVPB IV SCH (08:55)
[2016-11-13] MEDS: ENOXAPARIN SODIUM SQ SCH (08:55)
[2016-11-13] MEDS: NORVASC 5 MG PO SCH (08:55)
[2016-11-13] MEDS: ECOTRIN 81 MG PO SCH (08:55)
--- NOTE | 2016-11-13 09:13 | PCM.NOTE ---
Date and Time: 11/13/16910 Subjective Assessment: patient is still having significant cough, not feeling much better today. patient states bp is always high and current numbers 170 systolic are good for her Objective Exam General Appearance: no apparent distress, alert Respiratory Exam: normal breath sounds, lungs clear, No respiratory distress Cardiovascular Exam: regular rate/rhythm, normal heart sounds Gastrointestinal/Abdomen Exam: soft, No tenderness, No mass Extremity Exam: normal inspection, normal range of motion OBJECTIVE DATA Vital Signs: Vital Signs - 24 hr Temp Pulse Resp BP Pulse Ox 11/13/16 07:11 98 F 74 20 180/84 97 11/13/16 07:01 72 18 95 11/13/16 04:00 98.4 F 71 20 178/75 96 11/13/16 03:45 71 18 94 L 11/12/16 23:32 98.5 F 77 22 185/77 97 11/12/16 23:27 82 18 98 11/12/16 19:43 98.4 F 82 20 185/79 98 11/12/16 19:05 79 18 90 L 11/12/16 16:25 97.9 F 78 20 180/72 98 11/12/16 14:54 67 18 93 L 11/12/16 11:22 68 20 180/74 97 11/12/16 11:05 72 16 93 L Oxygen-Last 24 hours O2 Percentage 2 Liters = 28% O2 Percentage 2 Liters = 28% O2 Percentage 2 Liters = 28% O2 Percentage 2 Liters = 28% O2 Percentage 2 Liters = 28% Pain Assessment - Last Documented Pain Intensity 5 Pain Scale Used 0-10 Pain Scale Intake and Output: Intake & Output 11/10/16 11/11/16 11/12/16 11/13/16 11:59 11:59 11:59 11:59 Intake Total 240 2389 2161 3314 Balance 240 2389 2161 3314 Weight 95.481 kg 95.617 kg 95.708 kg Assessment/Plan (1) Acute bronchitis with bronchospasm Current Visit: Yes Status: Acute Assessment & Plan: breath sounds improved, will give one more day of nebs and IV abx. likely home tomorrow Code(s): J20.9 - ACUTE BRONCHITIS, UNSPECIFIED (2) Hypoxia Current Visit: Yes Status: Acute Code(s): R09.02 - HYPOXEMIA (3) Hypertension Current Visit: Yes Status: Acute Qualifiers: Hypertension type: essential hypertension Qualified Code(s): I10 - Essential (primary) hypertension Assessment & Plan: increase lisinopril to 40mg daily, continue amlodipine 10mg daily Code(s): I10 - ESSENTIAL (PRIMARY) HYPERTENSION
[2016-11-13] MEDS: Zithromax 500 MG/ 250 ML NaCl Premix 500 MG/250 ML IVPB IV SCH (16:04)
[2016-11-14] MEDS: DUONEB 0.5-3 MG/3 ml Neb IH SCH ×3 (03:21→07:04)
[2016-11-14] MEDS: Sodium Chloride 0.9% 1000 ML 1,000 ML IV SCH (05:01)
[2016-11-14 06:08] LABS: ANION GAP 8.6 MEQ/L (5-15); BLOOD UREA NITROGEN 8 mg/dL (9-20); CHLORIDE 107 mEq/L (98-107); Carbon Dioxide 30.8 mEq/L (21-32); Glucose 126 MG/DL (70-110); Potassium 3.2 mEq/L (3.5-5.1); SODIUM 143 mEq/L (136-145)
[2016-11-14 06:18] LABS: BASOPHIL % 0.3 % (0.0-0.4); Eosinophil % 4.1 % (0.00-5.0); Granulocytes % 51.6 % (36.0-66.0); Lymphocytes % 31.5 % (24.0-44.0); Mean Cell Volume 92.6 fl (78-100); Mean Corpuscular Hemoglobin 29.6 pg (26-32); Mean Platelet Volume 11.1 fl (6-9.5); Monocytes % 12.5 % (0.0-12.0); Platelet Count 250 K/mm3 (150-450); Red Blood Count 4.19 M/mm3 (4.1-5.4); White Blood Count 9.5 K/mm3 (4.0-10.5)
[2016-11-14 08:09] VITALS: BP 183/75; PULSE 74; O2SAT 95
--- NOTE | 2016-11-14 08:16 | PCM.DS ---
Discharge Summary Date of Admission: 11/10/16 08:04 Admitting Physician: KALPESH JIMENEZ Primary Care Provider: NO FAMILY DOCTOR Allergies Allergies cortisone Allergy (Severe, Verified 11/09/16 13:02) swelling of lips zolpidem [From Ambien] Adverse Reaction (Severe, Verified 11/13/16 06:19) Confusion Hospital Summary - Hospital Course Hospital Course: patient was admitted with cough, congestion and hypoxia. she is feeling much better and cough has resolved. - Vitals & Intake/Output Vital Signs: Vital Signs Temperature 98.1 F 11/14/16 08:00 Pulse Rate 74 11/14/16 08:00 Respiratory Rate 22 11/14/16 08:00 Blood Pressure 183/75 11/14/16 08:00 O2 Sat by Pulse Oximetry 95 11/14/16 08:00 Oxygen-Last Documented O2 Percentage 2 Liters = 28% Intake & Output: Intake & Output 11/11/16 11/12/16 11/13/16 11/14/16 11:59 11:59 11:59 11:59 Intake Total 2389 2161 3674 2075 Balance 2389 2161 3674 2075 Weight 95.481 kg 95.617 kg 95.708 kg 96.479 kg - Lab Result Diagrams: 11/14/16 05:23 11/14/16 05:23 Lab Results-Last 24 Hrs: Lab Results-Last 24 Hours 11/14/16 11/14/16 Range/Units 05:23 05:23 WBC 9.5 (4.0-10.5) K/mm3 RBC 4.19 (4.1-5.4) M/mm3 Hgb 12.4 (12.0-16.0) gm/dl Hct 38.8 (35-47) % MCV 92.6 (78-100) fl MCH 29.6 (26-32) pg MCHC 32.0 (32-36) g/dl RDW 13.0 (11.5-14.0) % Plt Count 250 (150-450) K/mm3 MPV 11.1 H (6-9.5) fl Gran % 51.6 (36.0-66.0) % Lymphocytes % 31.5 (24.0-44.0) % Monocytes % 12.5 H (0.0-12.0) % Eosinophils % 4.1 (0.00-5.0) % Basophils % 0.3 (0.0-0.4) % Basophils # 0.03 (0-0.4) Sodium 143 (136-145) mEq/L Potassium 3.2 L (3.5-5.1) mEq/L Chloride 107 (98-107) mEq/L Carbon Dioxide 30.8 (21-32) mEq/L Anion Gap 8.6 (5-15) MEQ/L BUN 8 L (9-20) mg/dL Creatinine 0.64 (0.55-1.30) mg/dl Estimated GFR > 60 ML/MIN Glucose 126 H (70-110) MG/DL Calcium 8.8 (8.5-10.1) mg/dL - Procedures and Test Procedures and Tests throughout Hospitalization: Therapy Orders & Screens 11/10/16 14:44 Flutter Therapy UD Comment: INSTRUCT Diagnosis: Hypoxia; Acute Bronchiolitis;Dypsnea Respiratory Nebulizer UD Comment: Diagnosis: Hypoxia; Acute Bronchiolitis;Dypsnea 11/11/16 13:22 EKG STAT Comment: Diagnosis: Hypoxia; Acute Bronchiolitis;Dypsnea Discharge Exam General Appearance: no apparent distress, alert Skin Exam: normal color, warm, dry Respiratory Exam: normal breath sounds, lungs clear, No respiratory distress Cardiovascular Exam: regular rate/rhythm, normal heart sounds Gastrointestinal/Abdomen Exam: soft, No tenderness, No mass Extremity Exam: normal inspection Final Diagnosis/Problem List - Final Discharge Diagnosis/Problem (1) Acute bronchitis with bronchospasm Current Visit: Yes Status: Acute (2) Hypoxia Current Visit: Yes Status: Acute Assessment & Plan: will need qualified for home oxygen (3) Hypertension Current Visit: Yes Status: Acute - Discharge Disposition: Home, Self-Care Condition: Good Prescriptions: New Amoxicillin/Potassium Clav [Augmentin 500-125 Tablet] 500 mg PO BID #14 tablet Albuterol/Ipratropium 3ml Neb* [DUONEB 0.5-3 MG/3 ml Neb] 3 ml IH Q4-6HPRN PRN #100 ampul.neb PRN Reason: Cough Lisinopril 40 mg PO DAILY #30 tablet Nebulizer 1 each UD #1 kit Amlodipine Besylate 10 mg [Norvasc 10 MG] 10 mg PO DAILY #30 tablet Continue Aspirin 81 mg PO DAILY Discontinued Lisinopril 20 mg PO DAILY Follow up with: KALPESH JIMENEZ MD [ACTIVE STAFF] -
[2016-11-14] MEDS: ECOTRIN 81 MG PO SCH (10:46)
[2016-11-14] MEDS: NORVASC 5 MG PO SCH (10:54)
[2016-11-14] MEDS: Zestril 20 MG PO SCH (10:54)
== END 2016-11-14 11:10 | disposition home or self-care (01) | DRG 203 ==
LOC: ED 12:43 → MED SURG 16:53 → OBSVTOIN 11-10 08:04
PROVIDERS: ADMIT Family Medicine; ATTEND Family Medicine
DX: J20.9 Acute bronchitis, unspecified (principal); R09.02 Hypoxemia; I10 Essential (primary) hypertension; I50.9 Heart failure, unspecified; J44.9 Chronic obstructive pulmonary disease, unspecified; I25.10 Atherosclerotic heart disease of native coronary artery without angina pectoris; M19.90 Unspecified osteoarthritis, unspecified site; Z95.810 Presence of automatic (implantable) cardiac defibrillator; Z72.0 Tobacco use; Z79.899 Other long term (current) drug therapy
CPT/HCPCS: 36000; 36415; 71010; 71260; 80048; 80053; 83605; 83880; 84484; 85025; 85379; 85610; 87040; 87070; 87631; 93005; 93041; 93268; 94150; 94640; 94760; 96360; 96361; 96365; 99285; G0378; J0360; J0456; J0696; J1650; J2930; A9270-GY

== ENCOUNTER 2018-09-29 09:06 | Observation (INO) | payer MEDICARE ==
[2018-09-29] MEDS ORDERED: Cardizem IV 50 MG/10 ML IV ONE ×3 (09:16→09:38)
[2018-09-29] MEDS ORDERED: Sodium Chloride 0.9% 1000 ML 1,000 ML ONE (09:16)
[2018-09-29] MEDS ORDERED: BABY ASPIRIN 81 MG CHEW PO ONE (09:21)
--- NOTE | 2018-09-29 09:27 | ERPHSYRPT ---
- History of Present Illness Time Seen by Provider: 09/29/18 09:22 Historian: patient Exam Limitations: no limitations Physician History: [id number] white female arrives with complaint of feeling short of breath symptoms since this morning she states she woke up at 7:00 feeling short of breath dizziness she states she has some substernal pain in her chest which she describes as "a dryness. No nausea no vomiting. Patient is noted to have a rapid heart rate as well as an elevated blood pressure. Past medical history includes congestive heart failure, coronary disease, high blood pressure, arthritis. Past surgical history includes tubal ligation ear tubes Social history positive for tobacco denies alcohol or illicit drug use Timing/Duration: today (7 AM) Activities at Onset: other (aawoke with symptoms) Quality: aching, other (dryness anterior chest) Location: substernal Chest Pain Radiation: no radiation Severity of Pain-Max: moderate Severity of Pain-Current: mild Modifying Factors: Worsens With: antacids, breathing, coughing, defecating, eating, exertion, lying down, morphine, movement, nitroglycerin, oxygen, palpation, rest, aspirin, sitting up, change in position Associated Symptoms: shortness of breath, cough, dizziness, No nausea, No vomiting, No palpitations, No heartburn, No abdominal pain, No hurts to breathe , No diaphoresis, No chills, No fever, No fatigue, No weakness, No swelling/ lump in chest (he has got a), No syncope, No rash, No headache Prior Chest Pain/Cardiac Workup: no prior chest pain Aspirin Treatment Today: 81 mg x 4, provided by ED Allergies/Adverse Reactions: cortisone Allergy (Severe, Verified 11/09/16 13:02) swelling of lips zolpidem [From Ambien] Adverse Reaction (Severe, Verified 11/13/16 06:19) Confusion Home Medications: Aspirin 81 mg PO DAILY 11/09/16 [History] Hx Tetanus, Diphtheria Vaccination/Date Given: Yes Hx Influenza Vaccination/Date Given: Yes Hx Pneumococcal Vaccination/Date Given: Yes - Review of Systems Constitutional: No Fever, No Chills Eyes: No Symptoms Ears, Nose, & Throat: No Symptoms Respiratory: Cough, Dyspnea, No Wheezing Cardiac: Chest Pain Abdominal/Gastrointestinal: No Abdominal Pain, No Nausea, No Vomiting, No Diarrhea Genitourinary Symptoms: No Dysuria Musculoskeletal: No Back Pain, No Neck Pain Skin: No Rash Neurological: Dizziness Psychological: No Symptoms Endocrine: No Symptoms All Other Systems: Reviewed and Negative - Past Medical History Pertinent Past Medical History: Yes Neurological History: No Pertinent History ENT History: No Pertinent History Cardiac History: Congestive Heart Failure, Coronary Artery Disease, Hypertension Respiratory History: No Pertinent History Endocrine Medical History: No Pertinent History Musculoskeletal History: Arthritis GI Medical History: No Pertinent History History: No Pertinent History Psycho-Social History: No Pertinent History Female Reproductive Disorders: No Pertinent History Other Medical History: myopathy - Past Surgical History Past Surgical History: Yes Neuro Surgical History: No Pertinent History Cardiac: Internal Defibrillator Respiratory: No Pertinent History Gastrointestinal: No Pertinent History Genitourinary: No Pertinent History Musculoskeletal: No Pertinent History Female Surgical History: Tubal Ligation Other Surgical History: ear tubes - Social History Smoking Status: Former smoker How long have you smoked: 10-15 year Exposure to second hand smoke: Yes Alcohol Use: None Drug Use: none Patient Lives Alone: Yes Significant Family History: heart disease, hypertension - Nursing Vital Signs Nursing Vital Signs: Initial Vital Signs Temperature 97.5 F 09/29/18 09:06 Pulse Rate 126 H 09/29/18 09:06 Respiratory Rate 28 H 09/29/18 09:06 Blood Pressure 246/120 09/29/18 09:06 O2 Sat by Pulse Oximetry 96 09/29/18 09:06 Pain Scale Pain Intensity 4 - Physical Exam General Appearance: mild distress, alert Eye Exam: PERRL/EOMI, eyes nml inspection Ears, Nose, Throat Exam: normal ENT inspection, moist mucous membranes Neck Exam: normal inspection, non-tender, supple, full range of motion Respiratory Exam: normal breath sounds, lungs clear, No respiratory distress Cardiovascular Exam: tachycardia, irregular, capillary refill <2 sec Gastrointestinal/Abdomen Exam: soft, No tenderness, No mass Back Exam: normal inspection, No CVA tenderness, No vertebral tenderness Extremity Exam: normal inspection, normal range of motion Neurologic Exam: alert, oriented x 3, cooperative, topstitcher zigzag II-XII nml as tested, normal mood/affect, sensation nml, No motor deficits Skin Exam: normal color, warm, dry SpO2 Interpretation: normal - Course Nursing assessment & vital signs reviewed: Yes EKG Interpreted by Me: RATE (143 bpm), Other (EKG: Atrial fibrillation rapid response 140 beats per minute normal axis no acute ST or T wave changes) - Radiology Exams Chest X-ray Interpretation: Discussed w/ radiologist (chest x-ray: Impression: 1. No infiltrates to suggest focal pneumonia or other acute cardiopulmonary disease is seen. 2. 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 STAT Care 09/29/18 09:17 Active EKG-ER Only STAT Care 09/29/18 09:17 Active IV Insertion STAT Care 09/29/18 09:17 Active Pulse Oximetry (ED) STAT Care 09/29/18 09:17 Active CHEST 1 VIEW (PORTABLE) Stat Exams 09/29/18 09:17 Completed CBC W DIFF Stat Lab 09/29/18 09:40 Completed CMP Stat Lab 09/29/18 09:40 Completed D-DIMER QUANTITATION Stat Lab 09/29/18 09:40 Received NT PRO BNP Stat Lab 09/29/18 09:40 Completed PROTIME WITH INR Stat Lab 09/29/18 09:40 Completed PTT Stat Lab 09/29/18 09:40 Completed TROPONIN Q3H Lab 09/29/18 09:40 Completed TROPONIN Q3H Lab 09/29/18 12:30 Ordered TROPONIN Q3H Lab 09/29/18 15:30 Ordered TROPONIN Q3H Lab 09/29/18 18:30 Ordered TROPONIN Q3H Lab 09/29/18 21:30 Ordered UA W/RFX UR CULTURE Stat Lab 09/29/18 10:52 Ordered Transfer Order Routine Transfer 09/29/18 Ordered Medication Summary Generic Name Dose Route Start Last Admin Trade Name Freq PRN Reason Stop Dose Admin Sodium Chloride 1,000 mls @ 50 mls/hr 09/29/18 09:30 09/29/18 09:40 Sodium Chloride 0.9% 1000 Ml IV 10/29/18 09:29 50 mls/hr .Q20H SANTOSH Administration Diltiazem HCl 100 mls @ 10 mls/hr 09/29/18 10:10 09/29/18 10:26 Cardizem Drip 100 Mg/100 Ml D5w IV 10/29/18 10:09 10 mg/hr .Q10H PRN 10 mls/hr HEART RATE/ A-FIB Administration Protocol 10 MG/HR Discontinued Medications Generic Name Dose Route Start Last Admin Trade Name Freq PRN Reason Stop Dose Admin Aspirin 324 mg 09/29/18 09:21 09/29/18 09:41 Baby Aspirin 81 Mg Chew PO 09/29/18 09:22 324 mg STAT ONE Administration Diltiazem HCl Confirm 09/29/18 09:16 Cardizem Iv 50 Mg/10 Ml Administered 09/29/18 09:17 Dose 50 mg IV .STK-MED ONE Diltiazem HCl 10 mg 09/29/18 09:17 09/29/18 09:40 Cardizem Iv 50 Mg/10 Ml IV 09/29/18 09:18 10 mg STAT ONE Administration Diltiazem HCl 10 mg 09/29/18 09:38 09/29/18 09:40 Cardizem Iv 50 Mg/10 Ml IV 09/29/18 09:39 10 mg STAT ONE Administration Enoxaparin Sodium 40 mg 09/29/18 10:37 09/29/18 10:43 Enoxaparin Sodium SQ 09/29/18 10:38 40 mg 1XONLY ONE Administration Enoxaparin Sodium Confirm 09/29/18 10:42 Enoxaparin Sodium Administered 09/29/18 10:43 Dose 80 mg SQ .STK-MED ONE Sodium Chloride Confirm 09/29/18 09:16 Sodium Chloride 0.9% 1000 Ml Administered 09/29/18 09:17 Dose 1,000 mls @ ud .ROUTE .STK-MED ONE Lab/Rad Data: Laboratory Result Diagrams 09/29/18 09:40 09/29/18 09:40 Laboratory Results 09/29/18 09/29/18 09/29/18 Range/Units 09:40 09:40 09:40 WBC (4.0-10.5) K/mm3 RBC (4.1-5.4) M/mm3 Hgb (12.0-16.0) gm/dl Hct (35-47) % MCV (78-100) fl MCH (26-32) pg MCHC (32-36) g/dl RDW (11.5-14.0) % Plt Count (150-450) K/mm3 MPV (6-9.5) fl Gran % (36.0-66.0) % Eos # (Auto) (0-0.5) Absolute Lymphs (auto) (1.0-4.6) Absolute Monos (auto) (0.0-1.3) Lymphocytes % (24.0-44.0) % Monocytes % (0.0-12.0) % Eosinophils % (0.00-5.0) % Basophils % (0.0-0.4) % Absolute Granulocytes (1.4-6.9) Basophils # (0-0.4) PT 11.5 (9.95-12.35) SECONDS INR 1.02 (0.8-3.0) APTT 35.6 (25.3-37.0) SECONDS Sodium 138 (137-145) mmol/L Potassium 3.7 (3.5-5.1) mmol/L Chloride 102 (98-107) mmol/L Carbon Dioxide 22 (22-30) mmol/L Anion Gap 18.8 H (5-15) MEQ/L BUN 16 (7-17) mg/dL Creatinine 0.55 (0.52-1.04) mg/dL Estimated GFR > 60.0 ML/MIN Glucose 246 H (74-106) mg/dL Calcium 9.4 (8.4-10.2) mg/dL Total Bilirubin 0.80 (0.2-1.3) mg/dL AST 28 (14-36) U/L ALT 27 (0-35) U/L Alkaline Phosphatase 108 (38-126) U/L Troponin I 0.020 (0.000-0.034) ng/mL NT-Pro-B Natriuret Pep 831 (0-900) pg/mL Serum Total Protein 7.7 (6.3-8.2) g/dL Albumin 4.2 (3.5-5.0) g/dL 09/29/18 Range/Units 09:40 WBC 8.2 (4.0-10.5) K/mm3 RBC 5.38 (4.1-5.4) M/mm3 Hgb 16.3 H (12.0-16.0) gm/dl Hct 48.5 H (35-47) % MCV 90.1 (78-100) fl MCH 30.2 (26-32) pg MCHC 33.6 (32-36) g/dl RDW 13.7 (11.5-14.0) % Plt Count 167 (150-450) K/mm3 MPV 11.8 H (6-9.5) fl Gran % 75.0 H (36.0-66.0) % Eos # (Auto) 0.19 (0-0.5) Absolute Lymphs (auto) 1.03 (1.0-4.6) Absolute Monos (auto) 0.81 (0.0-1.3) Lymphocytes % 12.6 L (24.0-44.0) % Monocytes % 9.9 (0.0-12.0) % Eosinophils % 2.3 (0.00-5.0) % Basophils % 0.2 (0.0-0.4) % Absolute Granulocytes 6.12 (1.4-6.9) Basophils # 0.02 (0-0.4) PT (9.95-12.35) SECONDS INR (0.8-3.0) APTT (25.3-37.0) SECONDS Sodium (137-145) mmol/L Potassium (3.5-5.1) mmol/L Chloride (98-107) mmol/L Carbon Dioxide (22-30) mmol/L Anion Gap (5-15) MEQ/L BUN (7-17) mg/dL Creatinine (0.52-1.04) mg/dL Estimated GFR ML/MIN Glucose (74-106) mg/dL Calcium (8.4-10.2) mg/dL Total Bilirubin (0.2-1.3) mg/dL AST (14-36) U/L ALT (0-35) U/L Alkaline Phosphatase (38-126) U/L Troponin I (0.000-0.034) ng/mL NT-Pro-B Natriuret Pep (0-900) pg/mL Serum Total Protein (6.3-8.2) g/dL Albumin (3.5-5.0) g/dL - Progress Progress: improved Air Movement: fair Progress Note: 09/29/18 10:39 This is a 72-year-old white female with history of congestive heart failure coronary artery disease, high blood pressure, arthritis. Patient arrives with complaint of substernal chest discomfort described as a dryness associated with shortness of breath onset 7 AM this morning upon waking up. On arrival patient is noted to be atrial fibrillation with rapid response heart rate was 143 beats per minute did not appear to be acute ST or T wave changes on EKG. Patient did have a markedly elevated blood pressure with a systolic blood pressure of 246/120 patient's temp was 97 5 Patient had a chest x-ray which was remarkable for no acute disease process noted. Patient was given aspirin 324 mg orally she was also given Cardizem 10 mg IV x2 and started on a Cardizem drip at 10 mg per hour. Patient's heart rate has improved is running around the 120s blood pressure is markedly improved the running at and and blood pressure is improved at 156/84. Patient is feeling much better. Patient's labs white blood cell of 8.2 hemoglobin 16.3 hematocrit 48.5 platelets are 167 INR is 1.02 d-dimer unfortunately, is a send out at this time and results are pending Patient's troponin is 0.020 patient's chemistry sodium 138 potassium 3.7 chloride 102 bicarbonate 22 BUN 18 creatinine 0.55 glucose is 246 anion gap is 18.8 BNP is 831 Impression 1 chest pain 2. Atrial fibrillation with rapid response 3. Hypertension. Patient is improved condition and us the case with Dr. Dahl who is guest relations representative for Dr. Jimenez. Will go ahead and place patient on ICU continue Cardizem drip. Will give patient Lovenox [address] Dahl is aware that the d-dimer is pending we'll also order a urinalysis on this patient. With respect serial troponins will also order echocardiogram. - Departure Departure Disposition: Observation Clinical Impression: Atrial fibrillation with rapid ventricular response Chest pain Qualifiers: Chest pain type: unspecified Qualified Code(s): R07.9 - Chest pain, unspecified Hypertension Qualifiers: Hypertension type: unspecified Qualified Code(s): I10 - Essential (primary) hypertension Condition: Fair Critical Care Time: Yes Critical Care Time(excluding separately billable procedures): 30-74 minutes Referrals: KALPESH JIMENEZ MD [Primary Care Provider] -
[2018-09-29] MEDS ORDERED: Sodium Chloride 0.9% 1000 ML 1,000 ML IV SCH ×2 (09:30→11:21)
[2018-09-29 09:49] LABS: INR 1.02 (0.8-3.0); PROTIME 11.5 SECONDS (9.95-12.35)
[2018-09-29 09:50] LABS: BASOPHIL % 0.2 % (0.0-0.4); Basophil (Absolute #) 0.02 (0-0.4); Eosinophil % 2.3 % (0.00-5.0); Eosinophil (Absolute #) 0.19 (0-0.5); Granulocyte Absolute (ANC) 6.12 (1.4-6.9); Hematocrit 48.5 % (35-47); Hemoglobin 16.3 gm/dl (12.0-16.0); Lymphocyte (Absolute #) 1.03 (1.0-4.6); Lymphocytes % 12.6 % (24.0-44.0); Mean Cell Volume 90.1 fl (78-100); Mean Corpuscular Hgb Concent. 33.6 g/dl (32-36); Mean Platelet Volume 11.8 fl (6-9.5); Monocyte (Absolute #) 0.81 (0.0-1.3); Monocytes % 9.9 % (0.0-12.0); Platelet Count 167 K/mm3 (150-450); Red Blood Count 5.38 M/mm3 (4.1-5.4); Red Cell Distribution Width 13.7 % (11.5-14.0); White Blood Count 8.2 K/mm3 (4.0-10.5)
[2018-09-29 09:53] LABS: PTT 35.6 SECONDS (25.3-37.0)
[2018-09-29 10:03] LABS: ALBUMIN 4.2 g/dL (3.5-5.0); ALKALINE PHOSPHATASE 108 U/L (38-126); ANION GAP 18.8 MEQ/L (5-15); BLOOD UREA NITROGEN 16 mg/dL (7-17); CHLORIDE 102 mmol/L (98-107); Calcium 9.4 mg/dL (8.4-10.2); Carbon Dioxide 22 mmol/L (22-30); Creatinine 1 0.55 mg/dL (0.52-1.04); Glucose 246 mg/dL (74-106); NT PRO BNP 831 pg/mL (0-900); Potassium 3.7 mmol/L (3.5-5.1); SGOT/AST 28 U/L (14-36); SGPT/ALT 27 U/L (0-35); SODIUM 138 mmol/L (137-145); Total Protein 7.7 g/dL (6.3-8.2)
--- NOTE | 2018-09-29 10:06 | XRAY ---
Exam: AP upright portable chest film from 09/29/2018. Comparison: AP portable chest film from 11/09/2016. Indication: 72-year-old female with shortness of breath since 7 AM, "fibrillations". Findings: The heart size and contour are normal. EKG leads overlie the chest. I again see granulomatous calcifications overlying the right hilum and right infrahilar projection. The lungs are adequately inflated. No air space infiltrates, pulmonary vascular congestion, pneumothorax, or pleural fluid is seen. There is minor deformity of the posterior lateral aspect of the right eighth rib consistent with a healed fracture. This appears to be new from the CT study of the chest from 11/09/2016. No other acute osseous process is seen. Mild degenerative changes are seen within both acromioclavicular joints, right greater than left. Impression: 1. No infiltrates to suggest focal pneumonia or other acute cardiopulmonary disease is seen. 2. Old healed granulomatous disease is again seen on the right, as discussed above. 3. Other incidental findings, as discussed above.
[2018-09-29 10:07] LABS: Mean Corpuscular Hemoglobin 30.2 pg (26-32)
[2018-09-29] MEDS ORDERED: CARDIZEM DRIP 100 MG/100 ML D5W 100 ML IV PRN ×2 (10:10→11:21)
[2018-09-29] MEDS ORDERED: ENOXAPARIN SODIUM SQ ONE ×3 (10:37→15:15)
[2018-09-29] MEDS ORDERED: NovoLOG Insulin SQ PRN (11:21)
[2018-09-29 11:25] VITALS: O2SAT 94
[2018-09-29 12:07] LABS: Appearance SLIGHTLY CLOUDY (CLEAR); Bilirubin NEGATIVE (NEGATIVE); Blood SMALL Ery/ul (0-5); Epithelial Cells RARE /HPF (FEW); Glucose 150 mg/dL (NEGATIVE); Ketones TRACE (NEGATIVE); Leukocyte Esterase LARGE (NEGATIVE); Mucus SLIGHT /HPF (NEGATIVE); Nitrite NEGATIVE (NEGATIVE); Protein,Urine Dip 100 (Negative); Specific Gravity 1.008 (1.005-1.025); Urobilinogen NEGATIVE mg/dL (0-1); WBC 0-2 /HPF (0-5)
[2018-09-29] MEDS ORDERED: PROVENTIL COMMON CANISTER IH PRN (14:24)
[2018-09-29] MEDS ORDERED: DUONEB 0.5-3 MG/3 ml Neb IH PRN (14:24)
--- NOTE | 2018-09-29 14:57 | PCM.HP ---
History of Present Illness - Chief Complaint Chief Complaint: A FIV WITH RVR, CHEST PAIN, HTN History of Present Illness: Please see short stay summary, which was completed in place of this H&P. is a 72 year old female pt of Dr. Fonseca with hx CHF, CAD, HTN, and OA who comes to ER today with afib with RVR. She started feeling odd at 7 a.m. when she woke up - felt sweaty with 7/10 substernal chest pain (that she describes as "dryness" and "radiation"), SOB. She called her daughter who brought her to the ER. She had HR of 140 and was given cardizem 20mg IV with HR still in the 120s. She was put on a cardizem drip at 10mg/hr with HR from 90s to 140 currently. Her first troponin was negative at 0.020. Second troponin has come b Medications & Allergies Home Medications: Home Medication List Amlodipine Besylate 10 mg [Norvasc 10 MG] 10 mg PO DAILY #30 tablet 11/14/16 [ Rx Confirmed 09/29/18] Albuterol Common Canister [Proventil Common Canister] 1 puff IH DAILY PRN PRN 09/29/18 [History Confirmed 09/29/18] Albuterol/Ipratropium 3ml Neb* [DUONEB 0.5-3 MG/3 ml Neb] 3 ml IH Q4-6HPRN PRN 09/29/18 [History Confirmed 09/29/18] Carvedilol [Coreg] 6.25 mg PO BID 09/29/18 [History Confirmed 09/29/18] Furosemide 20 mg [Lasix 20 mg] 20 mg PO DAILY 09/29/18 [History Confirmed 09/29/18] Allergies/Adverse Reactions: Allergies Allergy/AdvReac Type Severity Reaction Status Date / Time cortisone Allergy Severe swelling Verified 09/29/18 11:59 of lips zolpidem [From Ambien] AdvReac Severe Confusion Verified 09/29/18 11:59 - Past Medical History Past Medical History: Yes Neurological History: No Pertinent History ENT History: No Pertinent History Cardiac History: Congestive Heart Failure, Coronary Artery Disease, Hypertension Respiratory History: Bronchitis, CHF Endocrine Medical History: No Pertinent History Musculoskelatal History: Arthritis GI Medical History: No Pertinent History History: No Pertinent History Pyscho-Social History: No Pertinent History Reproductive Disorders: No Pertinent History Comment: myopathy - Female History Are you now?: No - Past Surgical History Past Surgical History: Yes Neuro Surgical History: No Pertinent History Cardiac History: No Pertinent History Respiratory Surgery: No Pertinent History GI Surgical History: No Pertinent History Genitourinary Surgical Hx: No Pertinent History Musculskeletal Surgical Hx: No Pertinent History Female Surgical History: Tubal Ligation Other Surgical History: MASTOID OPERATION - Social History Smoking Status: Current every day smoker How long have you smoked: 3 MONTHS Exposure to second hand smoke: No Alcohol: None Drug Use: none Significant Family History: heart disease, hypertension - Physical Exam Vital Signs: Vital Signs - 24 hr Temp Pulse Resp BP BP BP Pulse Ox 09/29/18 14:29 130 H 22 94 L 09/29/18 14:28 94 L 09/29/18 14:00 105 H 142/81 09/29/18 13:00 108 H 128/88 09/29/18 12:00 143 H 191/74 09/29/18 11:26 137 H 16 174/95 09/29/18 11:24 97.7 F 137 H 17 174/95 94 L 09/29/18 11:21 94 L 09/29/18 11:17 97.7 F 137 H 18 174/95 94 L 09/29/18 10:49 98.4 F 128 H 22 156/84 95 09/29/18 09:56 128 H 20 159/96 09/29/18 09:54 97 09/29/18 09:45 130 H 16 146/91 97 09/29/18 09:06 97.5 F 126 H 28 H 246/120 96 Results - Labs Lab/Micro Results: Lab Results-Last 24 Hours 09/29/18 09/29/18 09/29/18 Range/Units 09:40 09:40 09:40 WBC 8.2 (4.0-10.5) K/mm3 RBC 5.38 (4.1-5.4) M/mm3 Hgb 16.3 H (12.0-16.0) gm/dl Hct 48.5 H (35-47) % MCV 90.1 (78-100) fl MCH 30.2 (26-32) pg MCHC 33.6 (32-36) g/dl RDW 13.7 (11.5-14.0) % Plt Count 167 (150-450) K/mm3 MPV 11.8 H (6-9.5) fl Gran % 75.0 H (36.0-66.0) % Eos # (Auto) 0.19 (0-0.5) Absolute Lymphs (auto) 1.03 (1.0-4.6) Absolute Monos (auto) 0.81 (0.0-1.3) Lymphocytes % 12.6 L (24.0-44.0) % Monocytes % 9.9 (0.0-12.0) % Eosinophils % 2.3 (0.00-5.0) % Basophils % 0.2 (0.0-0.4) % Absolute Granulocytes 6.12 (1.4-6.9) Basophils # 0.02 (0-0.4) PT 11.5 (9.95-12.35) SECONDS INR 1.02 (0.8-3.0) APTT 35.6 (25.3-37.0) SECONDS D-Dimer (215-500) ng/mL Sodium 138 (137-145) mmol/L Potassium 3.7 (3.5-5.1) mmol/L Chloride 102 (98-107) mmol/L Carbon Dioxide 22 (22-30) mmol/L Anion Gap 18.8 H (5-15) MEQ/L BUN 16 (7-17) mg/dL Creatinine 0.55 (0.52-1.04) mg/dL Estimated GFR > 60.0 ML/MIN Glucose 246 H (74-106) mg/dL Calcium 9.4 (8.4-10.2) mg/dL Total Bilirubin 0.80 (0.2-1.3) mg/dL AST 28 (14-36) U/L ALT 27 (0-35) U/L Alkaline Phosphatase 108 (38-126) U/L Troponin I (0.000-0.034) ng/mL NT-Pro-B Natriuret Pep 831 (0-900) pg/mL Serum Total Protein 7.7 (6.3-8.2) g/dL Albumin 4.2 (3.5-5.0) g/dL Urine Color (YELLOW) Urine Appearance (CLEAR) Urine pH (5-6) Ur Specific [place] (1.005-1.025) Urine Protein (Negative) Urine Ketones (NEGATIVE) Urine Blood (0-5) [place]/ul Urine Nitrite (NEGATIVE) Urine Bilirubin (NEGATIVE) Urine Urobilinogen (0-1) mg/dL Ur Leukocyte Esterase (NEGATIVE) Urine WBC (Auto) (0-5) /HPF Urine RBC (Auto) (0-2) /HPF U Epithel Cells (Auto) (FEW) /HPF Urine Bacteria (Auto) (NEGATIVE) /HPF Urine Mucus (Auto) (NEGATIVE) /HPF Urine Culture Reflexed (NO) Urine Glucose (NEGATIVE) mg/dL 09/29/18 09/29/18 09/29/18 Range/Units 09:40 09:40 12:00 WBC (4.0-10.5) K/mm3 RBC (4.1-5.4) M/mm3 Hgb (12.0-16.0) gm/dl Hct (35-47) % MCV (78-100) fl MCH (26-32) pg MCHC (32-36) g/dl RDW (11.5-14.0) % Plt Count (150-450) K/mm3 MPV (6-9.5) fl Gran % (36.0-66.0) % Eos # (Auto) (0-0.5) Absolute Lymphs (auto) (1.0-4.6) Absolute Monos (auto) (0.0-1.3) Lymphocytes % (24.0-44.0) % Monocytes % (0.0-12.0) % Eosinophils % (0.00-5.0) % Basophils % (0.0-0.4) % Absolute Granulocytes (1.4-6.9) Basophils # (0-0.4) PT (9.95-12.35) SECONDS INR (0.8-3.0) APTT (25.3-37.0) SECONDS D-Dimer (215-500) ng/mL Sodium (137-145) mmol/L Potassium (3.5-5.1) mmol/L Chloride (98-107) mmol/L Carbon Dioxide (22-30) mmol/L Anion Gap (5-15) MEQ/L BUN (7-17) mg/dL Creatinine (0.52-1.04) mg/dL Estimated GFR ML/MIN Glucose (74-106) mg/dL Calcium (8.4-10.2) mg/dL Total Bilirubin (0.2-1.3) mg/dL AST (14-36) U/L ALT (0-35) U/L Alkaline Phosphatase (38-126) U/L Troponin I 0.020 (0.000-0.034) ng/mL NT-Pro-B Natriuret Pep (0-900) pg/mL Serum Total Protein (6.3-8.2) g/dL Albumin (3.5-5.0) g/dL Urine Color STRAW (YELLOW) Urine Appearance SLIGHTLY CLOUDY (CLEAR) Urine pH 7.0 (5-6) Ur Specific [place] 1.008 (1.005-1.025) Urine Protein 100 (Negative) Urine Ketones TRACE (NEGATIVE) Urine Blood SMALL (0-5) [place]/ul Urine Nitrite NEGATIVE (NEGATIVE) Urine Bilirubin NEGATIVE (NEGATIVE) Urine Urobilinogen NEGATIVE (0-1) mg/dL Ur Leukocyte Esterase LARGE (NEGATIVE) Urine WBC (Auto) 0-2 (0-5) /HPF Urine RBC (Auto) 3-5 (0-2) /HPF U Epithel Cells (Auto) RARE (FEW) /HPF Urine Bacteria (Auto) NONE (NEGATIVE) /HPF Urine Mucus (Auto) SLIGHT (NEGATIVE) /HPF Urine Culture Reflexed YES (NO) Urine Glucose 150 (NEGATIVE) mg/dL 09/29/18 Range/Units 12:49 WBC (4.0-10.5) K/mm3 RBC (4.1-5.4) M/mm3 Hgb (12.0-16.0) gm/dl Hct (35-47) % MCV (78-100) fl MCH (26-32) pg MCHC (32-36) g/dl RDW (11.5-14.0) % Plt Count (150-450) K/mm3 MPV (6-9.5) fl Gran % (36.0-66.0) % Eos # (Auto) (0-0.5) Absolute Lymphs (auto) (1.0-4.6) Absolute Monos (auto) (0.0-1.3) Lymphocytes % (24.0-44.0) % Monocytes % (0.0-12.0) % Eosinophils % (0.00-5.0) % Basophils % (0.0-0.4) % Absolute Granulocytes (1.4-6.9) Basophils # (0-0.4) PT (9.95-12.35) SECONDS INR (0.8-3.0) APTT (25.3-37.0) SECONDS D-Dimer (215-500) ng/mL Sodium (137-145) mmol/L Potassium (3.5-5.1) mmol/L Chloride (98-107) mmol/L Carbon Dioxide (22-30) mmol/L Anion Gap (5-15) MEQ/L BUN (7-17) mg/dL Creatinine (0.52-1.04) mg/dL Estimated GFR ML/MIN Glucose (74-106) mg/dL Calcium (8.4-10.2) mg/dL Total Bilirubin (0.2-1.3) mg/dL AST (14-36) U/L ALT (0-35) U/L Alkaline Phosphatase (38-126) U/L Troponin I 0.542 H* (0.000-0.034) ng/mL NT-Pro-B Natriuret Pep (0-900) pg/mL Serum Total Protein (6.3-8.2) g/dL Albumin (3.5-5.0) g/dL Urine Color (YELLOW) Urine Appearance (CLEAR) Urine pH (5-6) Ur Specific [place] (1.005-1.025) Urine Protein (Negative) Urine Ketones (NEGATIVE) Urine Blood (0-5) [place]/ul Urine Nitrite (NEGATIVE) Urine Bilirubin (NEGATIVE) Urine Urobilinogen (0-1) mg/dL Ur Leukocyte Esterase (NEGATIVE) Urine WBC (Auto) (0-5) /HPF Urine RBC (Auto) (0-2) /HPF U Epithel Cells (Auto) (FEW) /HPF Urine Bacteria (Auto) (NEGATIVE) /HPF Urine Mucus (Auto) (NEGATIVE) /HPF Urine Culture Reflexed (NO) Urine Glucose (NEGATIVE) mg/dL - Radiology Impressions Radiology Exams & Impressions: Radiology Procedures Category Date Time Status CHEST 1 VIEW (PORTABLE) Stat Exams 09/29/18 09:17 Completed ECHO W/2D AND DOPPLER [US] Stat Exams 09/29/18 11:21 Ordered
--- NOTE | 2018-09-29 15:16 | PCM.SSS ---
History of Present Illness - Chief Complaint Chief Complaint: A FIV WITH RVR, CHEST PAIN, HTN History of Present Illness: is a 72 year old female pt of Dr. Fonseca with hx CHF, CAD, HTN, and OA who comes to ER today with afib with RVR. She started feeling odd at 7 a.m. when she woke up - felt sweaty with 7/10 substernal chest pain (that she describes as "dryness" and "radiation"), SOB. She called her daughter who brought her to the ER. She had HR of 140, EKG consistent with afib with RVR, and was given cardizem 20mg IV with HR still in the 120s. She was put on a cardizem drip at 10mg/hr with HR from 90s to 140 currently. Received 40mg lovenox SQ x 1. Her first troponin was negative at 0.020. Second troponin has come back positive at 0.542. Her D-dimer is pending because it has to be sent out to [facility]. Currently she is still having chest discomfort and some SOB. I spoke with Dr. Minor who will transfer pt for further care (possibly cardiac catheterization). I discussed with pt and she is in agreement. - Review of Systems Respiratory: Cough, Short Of Breath Cardiac: Chest Pain, Edema, Palpitations All Other Systems: Reviewed and Negative Medications & Allergies Home Medications: Home Medication List Amlodipine Besylate 10 mg [Norvasc 10 MG] 10 mg PO DAILY #30 tablet 11/14/16 [ Rx Confirmed 09/29/18] Albuterol Common Canister [Proventil Common Canister] 1 puff IH DAILY PRN PRN 09/29/18 [History Confirmed 09/29/18] Albuterol/Ipratropium 3ml Neb* [DUONEB 0.5-3 MG/3 ml Neb] 3 ml IH Q4-6HPRN PRN 09/29/18 [History Confirmed 09/29/18] Carvedilol [Coreg] 6.25 mg PO BID 09/29/18 [History Confirmed 09/29/18] Furosemide 20 mg [Lasix 20 mg] 20 mg PO DAILY 09/29/18 [History Confirmed 09/29/18] Allergies/Adverse Reactions: Allergies Allergy/AdvReac Type Severity Reaction Status Date / Time cortisone Allergy Severe swelling Verified 09/29/18 11:59 of lips zolpidem [From Ambien] AdvReac Severe Confusion Verified 09/29/18 11:59 - Past Medical History Past Medical History: Yes Neurological History: No Pertinent History ENT History: No Pertinent History Cardiac History: Congestive Heart Failure, Coronary Artery Disease, Hypertension Respiratory History: Bronchitis, CHF Endocrine Medical History: No Pertinent History Musculoskelatal History: Arthritis GI Medical History: No Pertinent History History: No Pertinent History Pyscho-Social History: No Pertinent History Reproductive Disorders: No Pertinent History Comment: myopathy - Female History Are you now?: No - Past Surgical History Past Surgical History: Yes Neuro Surgical History: No Pertinent History Cardiac History: No Pertinent History Respiratory Surgery: No Pertinent History GI Surgical History: No Pertinent History Genitourinary Surgical Hx: No Pertinent History Musculskeletal Surgical Hx: No Pertinent History Female Surgical History: Tubal Ligation Other Surgical History: MASTOID OPERATION - Social History Smoking Status: Current every day smoker How long have you smoked: 3 MONTHS Exposure to second hand smoke: No Alcohol: None Drug Use: none Significant Family History: heart disease, hypertension - Physical Exam Vital Signs: Vital Signs - 24 hr Temp Pulse Resp BP BP BP Pulse Ox 09/29/18 14:29 130 H 22 94 L 09/29/18 14:28 94 L 09/29/18 14:00 105 H 142/81 09/29/18 13:00 108 H 128/88 09/29/18 12:00 143 H 191/74 09/29/18 11:26 137 H 16 174/95 09/29/18 11:24 97.7 F 137 H 17 174/95 94 L 09/29/18 11:21 94 L 09/29/18 11:17 97.7 F 137 H 18 174/95 94 L 09/29/18 10:49 98.4 F 128 H 22 156/84 95 09/29/18 09:56 128 H 20 159/96 09/29/18 09:54 97 09/29/18 09:45 130 H 16 146/91 97 09/29/18 09:06 97.5 F 126 H 28 H 246/120 96 General Appearance: no apparent distress, alert Neurologic Exam: oriented x 3, cooperative, normal mood/affect Eye Exam: eyes nml inspection Ears, Nose, Throat Exam: moist mucous membranes Neck Exam: normal inspection Respiratory Exam: normal breath sounds, lungs clear, No crackles/rales, No rhonchi, No wheezing Cardiovascular Exam: normal heart sounds, tachycardia, No murmur Gastrointestinal/Abdomen Exam: soft, normal bowel sounds, No tenderness, No distention, No mass, No guarding, No rebound Back Exam: normal inspection, No rash Extremity Exam: normal inspection, pedal edema (trace LE edema), No tenderness Skin Exam: normal color, warm, dry, No rash Results - Labs Lab/Micro Results: Lab Results-Last 24 Hours 09/29/18 09/29/18 09/29/18 Range/Units 09:40 09:40 09:40 WBC 8.2 (4.0-10.5) K/mm3 RBC 5.38 (4.1-5.4) M/mm3 Hgb 16.3 H (12.0-16.0) gm/dl Hct 48.5 H (35-47) % MCV 90.1 (78-100) fl MCH 30.2 (26-32) pg MCHC 33.6 (32-36) g/dl RDW 13.7 (11.5-14.0) % Plt Count 167 (150-450) K/mm3 MPV 11.8 H (6-9.5) fl Gran % 75.0 H (36.0-66.0) % Eos # (Auto) 0.19 (0-0.5) Absolute Lymphs (auto) 1.03 (1.0-4.6) Absolute Monos (auto) 0.81 (0.0-1.3) Lymphocytes % 12.6 L (24.0-44.0) % Monocytes % 9.9 (0.0-12.0) % Eosinophils % 2.3 (0.00-5.0) % Basophils % 0.2 (0.0-0.4) % Absolute Granulocytes 6.12 (1.4-6.9) Basophils # 0.02 (0-0.4) PT 11.5 (9.95-12.35) SECONDS INR 1.02 (0.8-3.0) APTT 35.6 (25.3-37.0) SECONDS D-Dimer (215-500) ng/mL Sodium 138 (137-145) mmol/L Potassium 3.7 (3.5-5.1) mmol/L Chloride 102 (98-107) mmol/L Carbon Dioxide 22 (22-30) mmol/L Anion Gap 18.8 H (5-15) MEQ/L BUN 16 (7-17) mg/dL Creatinine 0.55 (0.52-1.04) mg/dL Estimated GFR > 60.0 ML/MIN Glucose 246 H (74-106) mg/dL Calcium 9.4 (8.4-10.2) mg/dL Total Bilirubin 0.80 (0.2-1.3) mg/dL AST 28 (14-36) U/L ALT 27 (0-35) U/L Alkaline Phosphatase 108 (38-126) U/L Troponin I (0.000-0.034) ng/mL NT-Pro-B Natriuret Pep 831 (0-900) pg/mL Serum Total Protein 7.7 (6.3-8.2) g/dL Albumin 4.2 (3.5-5.0) g/dL Urine Color (YELLOW) Urine Appearance (CLEAR) Urine pH (5-6) Ur Specific [place] (1.005-1.025) Urine Protein (Negative) Urine Ketones (NEGATIVE) Urine Blood (0-5) [place]/ul Urine Nitrite (NEGATIVE) Urine Bilirubin (NEGATIVE) Urine Urobilinogen (0-1) mg/dL Ur Leukocyte Esterase (NEGATIVE) Urine WBC (Auto) (0-5) /HPF Urine RBC (Auto) (0-2) /HPF U Epithel Cells (Auto) (FEW) /HPF Urine Bacteria (Auto) (NEGATIVE) /HPF Urine Mucus (Auto) (NEGATIVE) /HPF Urine Culture Reflexed (NO) Urine Glucose (NEGATIVE) mg/dL 09/29/18 09/29/18 09/29/18 Range/Units 09:40 09:40 12:00 WBC (4.0-10.5) K/mm3 RBC (4.1-5.4) M/mm3 Hgb (12.0-16.0) gm/dl Hct (35-47) % MCV (78-100) fl MCH (26-32) pg MCHC (32-36) g/dl RDW (11.5-14.0) % Plt Count (150-450) K/mm3 MPV (6-9.5) fl Gran % (36.0-66.0) % Eos # (Auto) (0-0.5) Absolute Lymphs (auto) (1.0-4.6) Absolute Monos (auto) (0.0-1.3) Lymphocytes % (24.0-44.0) % Monocytes % (0.0-12.0) % Eosinophils % (0.00-5.0) % Basophils % (0.0-0.4) % Absolute Granulocytes (1.4-6.9) Basophils # (0-0.4) PT (9.95-12.35) SECONDS INR (0.8-3.0) APTT (25.3-37.0) SECONDS D-Dimer (215-500) ng/mL Sodium (137-145) mmol/L Potassium (3.5-5.1) mmol/L Chloride (98-107) mmol/L Carbon Dioxide (22-30) mmol/L Anion Gap (5-15) MEQ/L BUN (7-17) mg/dL Creatinine (0.52-1.04) mg/dL Estimated GFR ML/MIN Glucose (74-106) mg/dL Calcium (8.4-10.2) mg/dL Total Bilirubin (0.2-1.3) mg/dL AST (14-36) U/L ALT (0-35) U/L Alkaline Phosphatase (38-126) U/L Troponin I 0.020 (0.000-0.034) ng/mL NT-Pro-B Natriuret Pep (0-900) pg/mL Serum Total Protein (6.3-8.2) g/dL Albumin (3.5-5.0) g/dL Urine Color STRAW (YELLOW) Urine Appearance SLIGHTLY CLOUDY (CLEAR) Urine pH 7.0 (5-6) Ur Specific [place] 1.008 (1.005-1.025) Urine Protein 100 (Negative) Urine Ketones TRACE (NEGATIVE) Urine Blood SMALL (0-5) [place]/ul Urine Nitrite NEGATIVE (NEGATIVE) Urine Bilirubin NEGATIVE (NEGATIVE) Urine Urobilinogen NEGATIVE (0-1) mg/dL Ur Leukocyte Esterase LARGE (NEGATIVE) Urine WBC (Auto) 0-2 (0-5) /HPF Urine RBC (Auto) 3-5 (0-2) /HPF U Epithel Cells (Auto) RARE (FEW) /HPF Urine Bacteria (Auto) NONE (NEGATIVE) /HPF Urine Mucus (Auto) SLIGHT (NEGATIVE) /HPF Urine Culture Reflexed YES (NO) Urine Glucose 150 (NEGATIVE) mg/dL 09/29/18 Range/Units 12:49 WBC (4.0-10.5) K/mm3 RBC (4.1-5.4) M/mm3 Hgb (12.0-16.0) gm/dl Hct (35-47) % MCV (78-100) fl MCH (26-32) pg MCHC (32-36) g/dl RDW (11.5-14.0) % Plt Count (150-450) K/mm3 MPV (6-9.5) fl Gran % (36.0-66.0) % Eos # (Auto) (0-0.5) Absolute Lymphs (auto) (1.0-4.6) Absolute Monos (auto) (0.0-1.3) Lymphocytes % (24.0-44.0) % Monocytes % (0.0-12.0) % Eosinophils % (0.00-5.0) % Basophils % (0.0-0.4) % Absolute Granulocytes (1.4-6.9) Basophils # (0-0.4) PT (9.95-12.35) SECONDS INR (0.8-3.0) APTT (25.3-37.0) SECONDS D-Dimer (215-500) ng/mL Sodium (137-145) mmol/L Potassium (3.5-5.1) mmol/L Chloride (98-107) mmol/L Carbon Dioxide (22-30) mmol/L Anion Gap (5-15) MEQ/L BUN (7-17) mg/dL Creatinine (0.52-1.04) mg/dL Estimated GFR ML/MIN Glucose (74-106) mg/dL Calcium (8.4-10.2) mg/dL Total Bilirubin (0.2-1.3) mg/dL AST (14-36) U/L ALT (0-35) U/L Alkaline Phosphatase (38-126) U/L Troponin I 0.542 H* (0.000-0.034) ng/mL NT-Pro-B Natriuret Pep (0-900) pg/mL Serum Total Protein (6.3-8.2) g/dL Albumin (3.5-5.0) g/dL Urine Color (YELLOW) Urine Appearance (CLEAR) Urine pH (5-6) Ur Specific [place] (1.005-1.025) Urine Protein (Negative) Urine Ketones (NEGATIVE) Urine Blood (0-5) [place]/ul Urine Nitrite (NEGATIVE) Urine Bilirubin (NEGATIVE) Urine Urobilinogen (0-1) mg/dL Ur Leukocyte Esterase (NEGATIVE) Urine WBC (Auto) (0-5) /HPF Urine RBC (Auto) (0-2) /HPF U Epithel Cells (Auto) (FEW) /HPF Urine Bacteria (Auto) (NEGATIVE) /HPF Urine Mucus (Auto) (NEGATIVE) /HPF Urine Culture Reflexed (NO) Urine Glucose (NEGATIVE) mg/dL - Radiology Impressions Radiology Exams & Impressions: Radiology Procedures Category Date Time Status CHEST 1 VIEW (PORTABLE) Stat Exams 09/29/18 09:17 Completed ECHO W/2D AND DOPPLER [US] Stat Exams 09/29/18 11:21 Ordered Assessment/Plan (1) Elevated troponin I level Current Visit: Yes Status: Acute Assessment & Plan: I spoke with Dr. Minor, he will arrange to have the patient transferred to higher level of care for likely cardiac catheterization. Code(s): R74.8 - ABNORMAL LEVELS OF OTHER SERUM ENZYMES (2) Chest pain Current Visit: Yes Status: Acute Qualifiers: Chest pain type: unspecified Qualified Code(s): R07.9 - Chest pain, unspecified Assessment & Plan: could be cardiac in etiology, but she has received lovenox at 1mg/kg in the event of PE. Code(s): R07.9 - CHEST PAIN, UNSPECIFIED (3) Atrial fibrillation with rapid ventricular response Current Visit: Yes Status: Acute Assessment & Plan: In ER received 20mg cardizem push, now on drip at 10mg/hr. Code(s): I48.91 - UNSPECIFIED ATRIAL FIBRILLATION (4) Hypertension Current Visit: Yes Status: Chronic Qualifiers: Hypertension type: unspecified Qualified Code(s): I10 - Essential (primary ) hypertension Assessment & Plan: improved to 150s systolic Code(s): I10 - ESSENTIAL (PRIMARY) HYPERTENSION Hospital Summary - Hospital Course Hospital Course: is a 72 year old female pt of Dr. Fonseca with hx CHF, CAD, HTN, and OA who came to ER today with CP and afib with RVR. Her second troponin was elevated over 0.5. Her HR has decreased somewhat with cardizem at 10mg/hr. CXR was non acute. I spoke with Dr. Minor who will transfer pt for further care (possibly cardiac catheterization). I discussed with pt and she is in agreement - Vitals & Intake/Output Vital Signs: Vital Signs Temperature 97.7 F 09/29/18 11:24 Pulse Rate 130 H 09/29/18 14:29 Respiratory Rate 22 09/29/18 14:29 Blood Pressure 142/81 09/29/18 14:00 O2 Sat by Pulse Oximetry 94 L 09/29/18 14:29 Intake & Output: Intake & Output 09/27/18 09/28/18 09/29/18 09/30/18 11:59 11:59 11:59 11:59 Weight 94 kg - Lab Result Diagrams: 09/29/18 09:40 09/29/18 09:40 Lab Results-Last 24 Hrs: Lab Results-Last 24 Hours 09/29/18 09/29/18 09/29/18 Range/Units 09:40 09:40 09:40 WBC 8.2 (4.0-10.5) K/mm3 RBC 5.38 (4.1-5.4) M/mm3 Hgb 16.3 H (12.0-16.0) gm/dl Hct 48.5 H (35-47) % MCV 90.1 (78-100) fl MCH 30.2 (26-32) pg MCHC 33.6 (32-36) g/dl RDW 13.7 (11.5-14.0) % Plt Count 167 (150-450) K/mm3 MPV 11.8 H (6-9.5) fl Gran % 75.0 H (36.0-66.0) % Eos # (Auto) 0.19 (0-0.5) Absolute Lymphs (auto) 1.03 (1.0-4.6) Absolute Monos (auto) 0.81 (0.0-1.3) Lymphocytes % 12.6 L (24.0-44.0) % Monocytes % 9.9 (0.0-12.0) % Eosinophils % 2.3 (0.00-5.0) % Basophils % 0.2 (0.0-0.4) % Absolute Granulocytes 6.12 (1.4-6.9) Basophils # 0.02 (0-0.4) PT 11.5 (9.95-12.35) SECONDS INR 1.02 (0.8-3.0) APTT 35.6 (25.3-37.0) SECONDS D-Dimer (215-500) ng/mL Sodium 138 (137-145) mmol/L Potassium 3.7 (3.5-5.1) mmol/L Chloride 102 (98-107) mmol/L Carbon Dioxide 22 (22-30) mmol/L Anion Gap 18.8 H (5-15) MEQ/L BUN 16 (7-17) mg/dL Creatinine 0.55 (0.52-1.04) mg/dL Estimated GFR > 60.0 ML/MIN Glucose 246 H (74-106) mg/dL Calcium 9.4 (8.4-10.2) mg/dL Total Bilirubin 0.80 (0.2-1.3) mg/dL AST 28 (14-36) U/L ALT 27 (0-35) U/L Alkaline Phosphatase 108 (38-126) U/L Troponin I (0.000-0.034) ng/mL NT-Pro-B Natriuret Pep 831 (0-900) pg/mL Serum Total Protein 7.7 (6.3-8.2) g/dL Albumin 4.2 (3.5-5.0) g/dL Urine Color (YELLOW) Urine Appearance (CLEAR) Urine pH (5-6) Ur Specific [place] (1.005-1.025) Urine Protein (Negative) Urine Ketones (NEGATIVE) Urine Blood (0-5) [place]/ul Urine Nitrite (NEGATIVE) Urine Bilirubin (NEGATIVE) Urine Urobilinogen (0-1) mg/dL Ur Leukocyte Esterase (NEGATIVE) Urine WBC (Auto) (0-5) /HPF Urine RBC (Auto) (0-2) /HPF U Epithel Cells (Auto) (FEW) /HPF Urine Bacteria (Auto) (NEGATIVE) /HPF Urine Mucus (Auto) (NEGATIVE) /HPF Urine Culture Reflexed (NO) Urine Glucose (NEGATIVE) mg/dL 09/29/18 09/29/18 09/29/18 Range/Units 09:40 09:40 12:00 WBC (4.0-10.5) K/mm3 RBC (4.1-5.4) M/mm3 Hgb (12.0-16.0) gm/dl Hct (35-47) % MCV (78-100) fl MCH (26-32) pg MCHC (32-36) g/dl RDW (11.5-14.0) % Plt Count (150-450) K/mm3 MPV (6-9.5) fl Gran % (36.0-66.0) % Eos # (Auto) (0-0.5) Absolute Lymphs (auto) (1.0-4.6) Absolute Monos (auto) (0.0-1.3) Lymphocytes % (24.0-44.0) % Monocytes % (0.0-12.0) % Eosinophils % (0.00-5.0) % Basophils % (0.0-0.4) % Absolute Granulocytes (1.4-6.9) Basophils # (0-0.4) PT (9.95-12.35) SECONDS INR (0.8-3.0) APTT (25.3-37.0) SECONDS D-Dimer (215-500) ng/mL Sodium (137-145) mmol/L Potassium (3.5-5.1) mmol/L Chloride (98-107) mmol/L Carbon Dioxide (22-30) mmol/L Anion Gap (5-15) MEQ/L BUN (7-17) mg/dL Creatinine (0.52-1.04) mg/dL Estimated GFR ML/MIN Glucose (74-106) mg/dL Calcium (8.4-10.2) mg/dL Total Bilirubin (0.2-1.3) mg/dL AST (14-36) U/L ALT (0-35) U/L Alkaline Phosphatase (38-126) U/L Troponin I 0.020 (0.000-0.034) ng/mL NT-Pro-B Natriuret Pep (0-900) pg/mL Serum Total Protein (6.3-8.2) g/dL Albumin (3.5-5.0) g/dL Urine Color STRAW (YELLOW) Urine Appearance SLIGHTLY CLOUDY (CLEAR) Urine pH 7.0 (5-6) Ur Specific [place] 1.008 (1.005-1.025) Urine Protein 100 (Negative) Urine Ketones TRACE (NEGATIVE) Urine Blood SMALL (0-5) [place]/ul Urine Nitrite NEGATIVE (NEGATIVE) Urine Bilirubin NEGATIVE (NEGATIVE) Urine Urobilinogen NEGATIVE (0-1) mg/dL Ur Leukocyte Esterase LARGE (NEGATIVE) Urine WBC (Auto) 0-2 (0-5) /HPF Urine RBC (Auto) 3-5 (0-2) /HPF U Epithel Cells (Auto) RARE (FEW) /HPF Urine Bacteria (Auto) NONE (NEGATIVE) /HPF Urine Mucus (Auto) SLIGHT (NEGATIVE) /HPF Urine Culture Reflexed YES (NO) Urine Glucose 150 (NEGATIVE) mg/dL 09/29/18 Range/Units 12:49 WBC (4.0-10.5) K/mm3 RBC (4.1-5.4) M/mm3 Hgb (12.0-16.0) gm/dl Hct (35-47) % MCV (78-100) fl MCH (26-32) pg MCHC (32-36) g/dl RDW (11.5-14.0) % Plt Count (150-450) K/mm3 MPV (6-9.5) fl Gran % (36.0-66.0) % Eos # (Auto) (0-0.5) Absolute Lymphs (auto) (1.0-4.6) Absolute Monos (auto) (0.0-1.3) Lymphocytes % (24.0-44.0) % Monocytes % (0.0-12.0) % Eosinophils % (0.00-5.0) % Basophils % (0.0-0.4) % Absolute Granulocytes (1.4-6.9) Basophils # (0-0.4) PT (9.95-12.35) SECONDS INR (0.8-3.0) APTT (25.3-37.0) SECONDS D-Dimer (215-500) ng/mL Sodium (137-145) mmol/L Potassium (3.5-5.1) mmol/L Chloride (98-107) mmol/L Carbon Dioxide (22-30) mmol/L Anion Gap (5-15) MEQ/L BUN (7-17) mg/dL Creatinine (0.52-1.04) mg/dL Estimated GFR ML/MIN Glucose (74-106) mg/dL Calcium (8.4-10.2) mg/dL Total Bilirubin (0.2-1.3) mg/dL AST (14-36) U/L ALT (0-35) U/L Alkaline Phosphatase (38-126) U/L Troponin I 0.542 H* (0.000-0.034) ng/mL NT-Pro-B Natriuret Pep (0-900) pg/mL Serum Total Protein (6.3-8.2) g/dL Albumin (3.5-5.0) g/dL Urine Color (YELLOW) Urine Appearance (CLEAR) Urine pH (5-6) Ur Specific [place] (1.005-1.025) Urine Protein (Negative) Urine Ketones (NEGATIVE) Urine Blood (0-5) [place]/ul Urine Nitrite (NEGATIVE) Urine Bilirubin (NEGATIVE) Urine Urobilinogen (0-1) mg/dL Ur Leukocyte Esterase (NEGATIVE) Urine WBC (Auto) (0-5) /HPF Urine RBC (Auto) (0-2) /HPF U Epithel Cells (Auto) (FEW) /HPF Urine Bacteria (Auto) (NEGATIVE) /HPF Urine Mucus (Auto) (NEGATIVE) /HPF Urine Culture Reflexed (NO) Urine Glucose (NEGATIVE) mg/dL - Radiology Exams Ordered Rad Exams-Entire Visit: Radiology Procedures Category Date Time Status CHEST 1 VIEW (PORTABLE) Stat Exams 09/29/18 09:17 Completed ECHO W/2D AND DOPPLER [US] Stat Exams 09/29/18 11:21 Ordered - Procedures and Test Procedures and Tests throughout Hospitalization: Therapy Orders & Screens 09/29/18 11:21 Respiratory Therapy Consult ROUTINE Comment: Reason For Exam: - Discharge Condition: Fair Prescriptions: No Action Amlodipine Besylate 10 mg [Norvasc 10 MG] 10 mg PO DAILY #30 tablet Furosemide 20 mg [Lasix 20 mg] 20 mg PO DAILY Carvedilol [Coreg] 6.25 mg PO BID Albuterol Common Canister [Proventil Common Canister] 1 puff IH DAILY PRN PRN PRN Reason: Shortness Of Breath/Wheezing Albuterol/Ipratropium 3ml Neb* [DUONEB 0.5-3 MG/3 ml Neb] 3 ml IH Q4-6HPRN PRN PRN Reason: Shortness Of Breath/Wheezing Follow up with: KALPESH JIMENEZ MD [Primary Care Provider] - 1 Week
[2018-09-29 16:34] VITALS: PULSE 121
[2018-09-29 16:39] VITALS: BP 148/71
[2018-09-29] MEDS ORDERED: Coreg 6.25 MG PO SCH (22:00)
[2018-09-30] MEDS ORDERED: NORVASC 5 MG PO SCH (10:00)
[2018-09-30] MEDS ORDERED: NON-FORMULARY ITEM (Amlodipine Besylate 10 Mg [Norvasc 10 Mg] 10 MG) PO SCH (10:00)
[2018-09-30] MEDS ORDERED: ENOXAPARIN SODIUM SQ SCH (10:00)
[2018-09-30] MEDS ORDERED: ECOTRIN 81 MG PO SCH (10:00)
== END 2018-09-29 16:36 | disposition home or self-care (01) ==
LOC: ED 09:06 → ICU 11:08
PROVIDERS: ADMIT Family Medicine; ATTEND Family Medicine
DX: R74.8 Abnormal levels of other serum enzymes (principal); I48.91 Unspecified atrial fibrillation; R07.9 Chest pain, unspecified; I10 Essential (primary) hypertension; I25.10 Atherosclerotic heart disease of native coronary artery without angina pectoris; Z79.899 Other long term (current) drug therapy
CPT/HCPCS: 36415; 71045; 80053; 81001; 83880; 84484; 85025; 85379; 85610; 85730; 87086; 93005; 93041; 93268; 93306; 94760; 96372; 96374; 96375; 99285; J1650; A9270-GY; G0378

== ENCOUNTER 2022-02-12 10:22 | Observation (INO) | payer MEDICARE ==
[2022-02-12] MEDS ORDERED: Cardizem IV 50 MG/10 ML IV SCH (11:00)
[2022-02-12] MEDS ORDERED: Sodium Chloride 0.9% 10 ML FLUSH Syringe IV PRN (11:00)
[2022-02-12 11:24] LABS: Absolute Neutrophil Ct (ANC) 4.73 x10^3/uL (1.4-6.9); Basophil (Absolute #) 0.08 x10^3/uL (0-0.4); Eosinophil % 4.5 % (0.00-5.0); Eosinophil (Absolute #) 0.32 x10^3/uL (0-0.5); Hematocrit 46.4 % (35-47); Hemoglobin 14.6 g/dL (12.0-16.0); Lymphocyte (Absolute #) 1.21 x10^3/uL (1.0-4.6); Mean Cell Volume 86.9 fL (78-100); Mean Corpuscular Hemoglobin 27.3 pg (26-32); Mean Corpuscular Hgb Concent. 31.5 g/dL (32-36); Mean Platelet Volume 11.2 fL (7.5-11.0); Monocyte (Absolute #) 0.75 x10^3/uL (0.0-1.3); Monocytes % 10.5 % (0.0-12.0); Neutrophil % 66.6 % (36.0-66.0); Platelet Count 141 x10^3/uL (150-450); Red Blood Count 5.34 x10^6/uL (4.1-5.4); Red Cell Distribution Width 15.7 % (11.5-14.0); White Blood Count 7.1 x10^3/uL (4.0-10.5)
[2022-02-12] MEDS: CARDIZEM DRIP 100 MG/100 ML D5W 100 ML IV PRN (11:34)
[2022-02-12 11:37] LABS: ALBUMIN 3.9 g/dL (3.5-5.0); ALKALINE PHOSPHATASE 255 U/L (38-126); ANION GAP 11.7 MEQ/L (5-15); BLOOD UREA NITROGEN 23 mg/dL (7-17); CHLORIDE 101 mmol/L (98-107); Calcium 9.4 mg/dL (8.4-10.2); Carbon Dioxide 28 mmol/L (22-30); Creatinine 1 0.89 mg/dL (0.52-1.04); EST GLOMERULAR FILTRATION RATE > 60.0 ML/MIN; Glucose 79 mg/dL (74-106); Potassium 3.6 mmol/L (3.5-5.1); SGOT/AST 27 U/L (14-36); SGPT/ALT 18 U/L (0-35); SODIUM 138 mmol/L (137-145); Total Protein 7.5 g/dL (6.3-8.2)
--- NOTE | 2022-02-12 11:38 | XRAY ---
Indication: Atrial fibrillation. Comparison: July 18, 2021 Portable chest remains hyperinflated and is now clear. Heart not enlarged again with a few right perihilar calcified granulomas. Bony thorax intact again with osteopenia and degenerative changes. Impression: Nonacute hyperinflated chest with chronic features.
[2022-02-12 11:59] LABS: INFLUENZA A NEGATIVE (NEGATIVE); INFLUENZA B NEGATIVE (NEGATIVE); RESPIRATORY SYNCTIAL VIRUS NEGATIVE (Negative); SARS-CoV-2 Xpert Express NEGATIVE (NEGATIVE)
--- NOTE | 2022-02-12 12:16 | XRAY ---
Indication: Right lower extremity edema. Two-dimensional sonogram and color Doppler imaging of the major venous vessels of the right leg performed. Comparison: None No thrombus seen in the examined deep venous vessels of the right leg including greater saphenous vein. Veins demonstrate normal compressibility. Venous waveforms are normal with and without augmentation. Impression: Right leg negative for DVT.
--- NOTE | 2022-02-12 12:18 | XRAY ---
Indication: Right lower extremity edema. Two-dimensional sonogram and color Doppler imaging of the major arteries of the right leg performed. Comparison: None Mild arteriosclerotic calcifications scattered in the visualized common femoral and superficial femoral arteries without critical stenosis/obstruction. Visualized popliteal and posterior tibial artery widely patent. Dorsal pedal artery is attenuated. Arterial waveforms are multiphasic throughout the right leg. Right arm IV present. Therefore left arm brachial pressure was used measuring 124. Right ankle pressure is 100. Right ankle brachial index is 0.81 favoring mild ischemic disease. Impression: Mild arteriosclerotic disease in the common femoral and superficial femoral arteries. Remaining arterial sonogram negative for critical stenosis/obstruction. LAURIE 0.81 favors mild ischemic disease.
[2022-02-12] MEDS: Sodium Chloride 0.9% 10 ML FLUSH Syringe IV SCH (13:14)
[2022-02-12] MEDS: Toprol Xl 100 MG PO SCH (13:14)
[2022-02-12] MEDS ORDERED: VENTOLIN COMMON CANISTER IH PRN (15:32)
[2022-02-12] MEDS ORDERED: HUMALOG SQ PRN (15:45)
[2022-02-12] MEDS ORDERED: LASIX 20 MG PO SCH (16:00)
[2022-02-12] MEDS ORDERED: Lasix 40 MG/4 ML IV ONE (17:00)
[2022-02-12] MEDS: ROCEPHIN 1 Gm-D5w 50 ml Bag** 1 G/50 ML IVPB IV SCH (17:30)
[2022-02-13] MEDS: CARDIZEM DRIP 100 MG/100 ML D5W 100 ML IV PRN (00:45)
[2022-02-13] MEDS: Sodium Chloride 0.9% 10 ML FLUSH Syringe IV SCH ×4 (00:55→21:19)
--- NOTE | 2022-02-13 07:40 | PCM.HP.ADD ---
Addendum to History & Physical - History & Physical Addendum Addendum to History & Physical: This certifies that the History & Physical in the electronic chart reflects the current health status of the patient. If there are changes in the H&P these changes/exceptions are listed as follows.
[2022-02-13 08:14] LABS: Hematocrit 47.9 % (35-47); Hemoglobin 14.8 g/dL (12.0-16.0); Mean Cell Volume 88.4 fL (78-100); Mean Corpuscular Hemoglobin 27.3 pg (26-32); Mean Corpuscular Hgb Concent. 30.9 g/dL (32-36); Mean Platelet Volume 11.1 fL (7.5-11.0); Platelet Count 161 x10^3/uL (150-450); Red Blood Count 5.42 x10^6/uL (4.1-5.4); Red Cell Distribution Width 15.3 % (11.5-14.0); White Blood Count 7.9 x10^3/uL (4.0-10.5)
[2022-02-13] MEDS: Klor Con PO SCH (09:06)
[2022-02-13] MEDS: ROCEPHIN 1 Gm-D5w 50 ml Bag** 1 G/50 ML IVPB IV SCH (09:06)
[2022-02-13] MEDS: Lasix 40 MG/4 ML IV SCH (09:06)
[2022-02-13] MEDS: Toprol Xl 100 MG PO SCH (09:06)
[2022-02-13 09:19] LABS: ALBUMIN 3.6 g/dL (3.5-5.0); ANION GAP 12.8 MEQ/L (5-15); BILIRUBIN,TOTAL 1.8 mg/dL (0.2-1.3); Calcium 8.7 mg/dL (8.4-10.2); Creatinine 1 0.97 mg/dL (0.52-1.04); EST GLOMERULAR FILTRATION RATE 59.5 ML/MIN; Potassium 3.7 mmol/L (3.5-5.1); Total Protein 6.9 g/dL (6.3-8.2)
[2022-02-13] MEDS ORDERED: ENOXAPARIN SODIUM SQ SCH (11:00)
--- NOTE | 2022-02-13 12:45 | PCM.NOTE ---
Date and Time: 02/13/22 1240 Subjective Assessment: She is on 5mg cardizem drip with HR in the 70s (still afib). She has not been taking toprol at home. Per Dr. Gilmore, her PCP, she is extremely noncomliant. Will try stopping the drip now that we have given her her toprol. She says she feels better. Swelling in RLE is better and no longer weeping. - Review of Systems Constitutional: No Fever Abdominal/Gastrointestinal: No Vomiting Objective Exam General Appearance: no apparent distress, alert Neurologic Exam: oriented x 3, cooperative Skin Exam: warm, dry, other (RLE mildly erythematous distally/medially), No rash Eye Exam: eyes nml inspection Ears, Nose, Throat Exam: moist mucous membranes Neck Exam: normal inspection Respiratory Exam: normal breath sounds, lungs clear, No crackles/rales, No rhonchi, No wheezing Cardiovascular Exam: normal heart sounds, irregular, No murmur OBJECTIVE DATA Vital Signs: Vital Signs - 24 hr Temp Pulse Resp BP BP Pulse Ox 02/13/22 12:00 96.6 F 84 21 142/89 91 L 02/13/22 11:00 74 22 119/68 91 L 02/13/22 10:00 72 18 131/71 133/71 96 02/13/22 09:00 80 21 146/83 146/83 93 L 02/13/22 08:00 97.9 F 81 17 135/79 135/79 93 L 02/13/22 07:38 80 02/13/22 07:00 78 20 95 02/13/22 06:45 82 20 129/84 02/13/22 05:43 70 18 121/70 02/13/22 04:45 70 24 153/73 02/13/22 03:54 98.2 F 72 19 133/74 96 02/13/22 03:45 81 19 143/77 02/13/22 02:45 73 22 133/74 02/13/22 01:45 68 22 134/78 02/13/22 01:36 76 18 152/71 02/13/22 00:45 66 20 136/72 02/13/22 00:01 66 02/13/22 00:00 71 19 137/68 95 02/12/22 23:30 67 20 137/68 02/12/22 22:30 71 22 125/81 02/12/22 20:40 83 20 140/87 02/12/22 20:36 72 18 127/81 02/12/22 20:00 97.9 F 68 18 127/81 97 02/12/22 19:30 71 18 117/72 02/12/22 19:27 85 23 96 02/12/22 18:32 74 18 127/78 02/12/22 17:16 68 18 96 02/12/22 17:00 73 18 133/74 02/12/22 16:07 70 18 128/74 02/12/22 16:00 82 02/12/22 15:51 97.6 F 77 16 117/73 95 02/12/22 14:04 150/99 02/12/22 13:34 105 H 155/91 02/12/22 13:33 105 H 155/91 Pain Assessment - Last Documented Pain Intensity 0 Intake and Output: Intake & Output 02/11/22 02/12/22 02/13/22 02/14/22 11:59 11:59 11:59 11:59 Intake Total 600 Output Total 700 Balance -100 Weight 74.2 kg Lab Results: Lab Results-Last 24 Hours 02/12/22 02/13/22 02/13/22 Range/Units 21:04 07:55 08:14 WBC 7.9 (4.0-10.5) x10^3/uL RBC 5.42 H (4.1-5.4) x10^6/uL Hgb 14.8 (12.0-16.0) g/dL Hct 47.9 H (35-47) % MCV 88.4 (78-100) fL MCH 27.3 (26-32) pg MCHC 30.9 L (32-36) g/dL RDW 15.3 H (11.5-14.0) % Plt Count 161 (150-450) x10^3/uL MPV 11.1 H (7.5-11.0) fL Sodium (137-145) mmol/L Potassium (3.5-5.1) mmol/L Chloride (98-107) mmol/L Carbon Dioxide (22-30) mmol/L Anion Gap (5-15) MEQ/L BUN (7-17) mg/dL Creatinine (0.52-1.04) mg/dL Estimated GFR ML/MIN Glucose (74-106) mg/dL POC Glucometer 206 H 133 H (74 to 106) mg/dL Hemoglobin A1c (4.5-6.0) % Calcium (8.4-10.2) mg/dL Total Bilirubin (0.2-1.3) mg/dL AST (14-36) U/L ALT (0-35) U/L Alkaline Phosphatase (38-126) U/L Serum Total Protein (6.3-8.2) g/dL Albumin (3.5-5.0) g/dL 02/13/22 02/13/22 02/13/22 Range/Units 08:14 08:14 11:51 WBC (4.0-10.5) x10^3/uL RBC (4.1-5.4) x10^6/uL Hgb (12.0-16.0) g/dL Hct (35-47) % MCV (78-100) fL MCH (26-32) pg MCHC (32-36) g/dL RDW (11.5-14.0) % Plt Count (150-450) x10^3/uL MPV (7.5-11.0) fL Sodium 136 L (137-145) mmol/L Potassium 3.7 (3.5-5.1) mmol/L Chloride 97 L (98-107) mmol/L Carbon Dioxide 30 (22-30) mmol/L Anion Gap 12.8 (5-15) MEQ/L BUN 24 H (7-17) mg/dL Creatinine 0.97 (0.52-1.04) mg/dL Estimated GFR 59.5 ML/MIN Glucose 133 H (74-106) mg/dL POC Glucometer 177 H (74 to 106) mg/dL Hemoglobin A1c 6.34 H (4.5-6.0) % Calcium 8.7 (8.4-10.2) mg/dL Total Bilirubin 1.80 H (0.2-1.3) mg/dL AST 30 (14-36) U/L ALT 18 (0-35) U/L Alkaline Phosphatase 227 H (38-126) U/L Serum Total Protein 6.9 (6.3-8.2) g/dL Albumin 3.6 (3.5-5.0) g/dL Radiology Exams: Radiology Procedures Category Date Time Status ARTERIAL UNILAT/LTD LOWER EXT [US] Urgent Exams 02/12/22 11:15 Completed CHEST 1 VIEW (PORTABLE) Urgent Exams 02/12/22 11:10 Completed ECHO W/2D AND DOPPLER [US] Routine Exams 02/12/22 11:15 Taken VENOUS UNILAT/LIMITED EXTREMIT [US] Urgent Exams 02/12/22 11:15 Completed Multi-Disciplinary Progress Notes: Multi-Disciplinary Progress Notes 02/13/22 11:15 Case Management Note by Inna Burt S/W PATIENT- SHE CONTINUES TO DENY ANY NEW NEEDS AT TIME OF DC. SHE PLANS TO RETURN HOME TO HER PLF AT TIME OF DC Initialized on 02/13/22 11:15 - END OF NOTE Assessment/Plan (1) Atrial fibrillation with rapid ventricular response Current Visit: No Status: Acute Assessment & Plan: Resuming home toprol; off cardizem drip if tolerated. Code(s): I48.91 - UNSPECIFIED ATRIAL FIBRILLATION (2) Cellulitis of right leg Current Visit: Yes Status: Acute Assessment & Plan: on day #2 rocephin. Code(s): L03.115 - CELLULITIS OF RIGHT LOWER LIMB (3) Hypertension Current Visit: No Status: Chronic Qualifiers: Hypertension type: primary hypertension Qualified Code(s): I10 - Essential (primary) hypertension Code(s): I10 - ESSENTIAL (PRIMARY) HYPERTENSION
[2022-02-13 14:12] LABS: Appearance CLEAR (CLEAR); Bilirubin NEGATIVE (NEGATIVE); Glucose NEGATIVE (NEGATIVE); Ketones NEGATIVE (NEGATIVE); RBC TRACE-INTACT Ery/ul (0-5)
[2022-02-13 14:13] LABS: Dipstick done @ ? MAIN LAB; Nitrite NEGATIVE (NEGATIVE); Protein,Urine Dip NEGATIVE (Negative); Urobilinogen 0.2 mg/dL (0-1)
[2022-02-13 14:21] LABS: Bacteria RARE /HPF (NEGATIVE); Epithelial Cells RARE /HPF (FEW); RBC 0-2 /HPF (0-2)
[2022-02-13 14:32] LABS: Urine Cultured Indicated? YES
[2022-02-13] MEDS: VENTOLIN COMMON CANISTER IH PRN (14:50)
[2022-02-14] MEDS: DUONEB 0.5-3 MG/3 ml Neb IH PRN ×3 (01:46→16:00)
[2022-02-14 05:55] LABS: Hematocrit 48.8 % (35-47); Hemoglobin 15.1 g/dL (12.0-16.0); Mean Cell Volume 88.6 fL (78-100); Mean Corpuscular Hemoglobin 27.4 pg (26-32); Mean Corpuscular Hgb Concent. 30.9 g/dL (32-36); Mean Platelet Volume 11.8 fL (7.5-11.0); Platelet Count 136 x10^3/uL (150-450); Red Blood Count 5.51 x10^6/uL (4.1-5.4); Red Cell Distribution Width 15.1 % (11.5-14.0); White Blood Count 6.9 x10^3/uL (4.0-10.5)
[2022-02-14] MEDS: Sodium Chloride 0.9% 10 ML FLUSH Syringe IV SCH ×3 (06:09→22:05)
[2022-02-14 06:19] LABS: ALBUMIN 3.6 g/dL (3.5-5.0); ALKALINE PHOSPHATASE 223 U/L (38-126); ANION GAP 10.2 MEQ/L (5-15); BLOOD UREA NITROGEN 27 mg/dL (7-17); CHLORIDE 98 mmol/L (98-107); Calcium 8.7 mg/dL (8.4-10.2); Carbon Dioxide 29 mmol/L (22-30); Creatinine 1 0.92 mg/dL (0.52-1.04); EST GLOMERULAR FILTRATION RATE > 60.0 ML/MIN; Glucose 116 mg/dL (74-106); Potassium 3.5 mmol/L (3.5-5.1); SGOT/AST 28 U/L (14-36); SGPT/ALT 18 U/L (0-35); SODIUM 134 mmol/L (137-145)
[2022-02-14] MEDS: Toprol Xl 100 MG PO SCH (08:34)
--- NOTE | 2022-02-14 08:59 | PCM.NOTE ---
Date and Time: 02/14/22856 Subjective Assessment: patient requiring 2L oxygen still, she isn't coughing much. feels better on oxygen, relays she becomes winded easily in her home and has to walk from one spot to the next and sit and recover, thinks she has needed oxygen for some time Objective Exam General Appearance: no apparent distress Respiratory Exam: diminished breath sounds, prolonged expirations, No rhonchi, No wheezing Cardiovascular Exam: irregular Gastrointestinal/Abdomen Exam: soft, No tenderness, No mass OBJECTIVE DATA Vital Signs: Vital Signs - 24 hr Temp Pulse Resp BP BP Pulse Ox 02/14/22 07:18 97.8 F 94 H 18 141/79 97 02/14/22 06:15 78 18 92 L 02/14/22 04:00 97.9 F 87 17 152/72 92 L 02/14/22 01:45 88 18 90 L 02/13/22 23:57 97.3 F 99 H 16 152/87 91 L 02/13/22 20:00 98.2 F 86 18 129/65 91 L 02/13/22 18:11 63 18 92 L 02/13/22 15:05 96.3 F 81 18 122/68 95 02/13/22 15:04 70 20 95 02/13/22 12:00 96.6 F 84 21 142/89 91 L 02/13/22 11:00 74 22 119/68 91 L 02/13/22 10:00 72 18 131/71 133/71 96 02/13/22 09:00 80 21 146/83 146/83 93 L Pain Assessment - Last Documented Pain Intensity 0 Intake and Output: Intake & Output 02/11/22 02/12/22 02/13/22 02/14/22 11:59 11:59 11:59 11:59 Intake Total 600 660 Output Total 700 500 Balance -100 160 Weight 74.2 kg Lab Results: Lab Results-Last 24 Hours 02/13/22 02/13/22 02/13/22 Range/Units 08:14 08:14 11:51 WBC (4.0-10.5) x10^3/uL RBC (4.1-5.4) x10^6/uL Hgb (12.0-16.0) g/dL Hct (35-47) % MCV (78-100) fL MCH (26-32) pg MCHC (32-36) g/dL RDW (11.5-14.0) % Plt Count (150-450) x10^3/uL MPV (7.5-11.0) fL Sodium 136 L (137-145) mmol/L Potassium 3.7 (3.5-5.1) mmol/L Chloride 97 L (98-107) mmol/L Carbon Dioxide 30 (22-30) mmol/L Anion Gap 12.8 (5-15) MEQ/L BUN 24 H (7-17) mg/dL Creatinine 0.97 (0.52-1.04) mg/dL Estimated GFR 59.5 ML/MIN Glucose 133 H (74-106) mg/dL POC Glucometer 177 H (74 to 106) mg/dL Hemoglobin A1c 6.34 H (4.5-6.0) % Calcium 8.7 (8.4-10.2) mg/dL Total Bilirubin 1.80 H (0.2-1.3) mg/dL AST 30 (14-36) U/L ALT 18 (0-35) U/L Alkaline Phosphatase 227 H (38-126) U/L Serum Total Protein 6.9 (6.3-8.2) g/dL Albumin 3.6 (3.5-5.0) g/dL Urinalys Dipstick Clnc Urine Color (YELLOW) Urine Appearance (CLEAR) Urine pH (5-6) Ur Specific [place] (1.005-1.025) POC Urine Protein Conf (Negative) Urine Ketones (NEGATIVE) Urine Nitrite (NEGATIVE) Urine Bilirubin (NEGATIVE) Urine Urobilinogen (0-1) mg/dL Urine Leukocytes (NEGATIVE) Urine WBC (Auto) (0-5) /HPF Urine RBC (Auto) (0-2) /HPF U Epithel Cells (Auto) (FEW) /HPF Urine Bacteria (Auto) (NEGATIVE) /HPF Urine RBC (0-5) [place]/ul Ur Culture Indicated? Urine Glucose (NEGATIVE) mg/dL 02/13/22 02/13/22 02/13/22 Range/Units 13:55 16:53 21:26 WBC (4.0-10.5) x10^3/uL RBC (4.1-5.4) x10^6/uL Hgb (12.0-16.0) g/dL Hct (35-47) % MCV (78-100) fL MCH (26-32) pg MCHC (32-36) g/dL RDW (11.5-14.0) % Plt Count (150-450) x10^3/uL MPV (7.5-11.0) fL Sodium (137-145) mmol/L Potassium (3.5-5.1) mmol/L Chloride (98-107) mmol/L Carbon Dioxide (22-30) mmol/L Anion Gap (5-15) MEQ/L BUN (7-17) mg/dL Creatinine (0.52-1.04) mg/dL Estimated GFR ML/MIN Glucose (74-106) mg/dL POC Glucometer 134 H 121 H (74 to 106) mg/dL Hemoglobin A1c (4.5-6.0) % Calcium (8.4-10.2) mg/dL Total Bilirubin (0.2-1.3) mg/dL AST (14-36) U/L ALT (0-35) U/L Alkaline Phosphatase (38-126) U/L Serum Total Protein (6.3-8.2) g/dL Albumin (3.5-5.0) g/dL Urinalys Dipstick Clnc MAIN LAB Urine Color YELLOW (YELLOW) Urine Appearance CLEAR (CLEAR) Urine pH 7.0 (5-6) Ur Specific [place] 1.020 (1.005-1.025) POC Urine Protein Conf NEGATIVE (Negative) Urine Ketones NEGATIVE (NEGATIVE) Urine Nitrite NEGATIVE (NEGATIVE) Urine Bilirubin NEGATIVE (NEGATIVE) Urine Urobilinogen 0.2 (0-1) mg/dL Urine Leukocytes SMALL A (NEGATIVE) Urine WBC (Auto) 3-5 A (0-5) /HPF Urine RBC (Auto) 0-2 (0-2) /HPF U Epithel Cells (Auto) RARE (FEW) /HPF Urine Bacteria (Auto) RARE (NEGATIVE) /HPF Urine RBC TRACE-INTACT A (0-5) Weston/ul Ur Culture Indicated? YES Urine Glucose NEGATIVE (NEGATIVE) mg/dL 02/14/22 02/14/22 02/14/22 Range/Units 05:20 05:20 07:02 WBC 6.9 (4.0-10.5) x10^3/uL RBC 5.51 H (4.1-5.4) x10^6/uL Hgb 15.1 (12.0-16.0) g/dL Hct 48.8 H (35-47) % MCV 88.6 (78-100) fL MCH 27.4 (26-32) pg MCHC 30.9 L (32-36) g/dL RDW 15.1 H (11.5-14.0) % Plt Count 136 L (150-450) x10^3/uL MPV 11.8 H (7.5-11.0) fL Sodium 134 L (137-145) mmol/L Potassium 3.5 (3.5-5.1) mmol/L Chloride 98 (98-107) mmol/L Carbon Dioxide 29 (22-30) mmol/L Anion Gap 10.2 (5-15) MEQ/L BUN 27 H (7-17) mg/dL Creatinine 0.92 (0.52-1.04) mg/dL Estimated GFR > 60.0 ML/MIN Glucose 116 H (74-106) mg/dL POC Glucometer 120 H (74 to 106) mg/dL Hemoglobin A1c (4.5-6.0) % Calcium 8.7 (8.4-10.2) mg/dL Total Bilirubin 1.60 H (0.2-1.3) mg/dL AST 28 (14-36) U/L ALT 18 (0-35) U/L Alkaline Phosphatase 223 H (38-126) U/L Serum Total Protein 7.0 (6.3-8.2) g/dL Albumin 3.6 (3.5-5.0) g/dL Urinalys Dipstick Clnc Urine Color (YELLOW) Urine Appearance (CLEAR) Urine pH (5-6) Ur Specific [place] (1.005-1.025) POC Urine Protein Conf (Negative) Urine Ketones (NEGATIVE) Urine Nitrite (NEGATIVE) Urine Bilirubin (NEGATIVE) Urine Urobilinogen (0-1) mg/dL Urine Leukocytes (NEGATIVE) Urine WBC (Auto) (0-5) /HPF Urine RBC (Auto) (0-2) /HPF U Epithel Cells (Auto) (FEW) /HPF Urine Bacteria (Auto) (NEGATIVE) /HPF Urine RBC (0-5) [place]/ul Ur Culture Indicated? Urine Glucose (NEGATIVE) mg/dL Radiology Exams: Radiology Procedures Category Date Time Status ARTERIAL UNILAT/LTD LOWER EXT [US] Urgent Exams 02/12/22 11:15 Completed CHEST 1 VIEW (PORTABLE) Urgent Exams 02/12/22 11:10 Completed ECHO W/2D AND DOPPLER [US] Routine Exams 02/12/22 11:15 Taken VENOUS UNILAT/LIMITED EXTREMIT [US] Urgent Exams 02/12/22 11:15 Completed Multi-Disciplinary Progress Notes: Multi-Disciplinary Progress Notes 02/14/22 06:19 Respiratory Note by Vicky Kumar SPO2 ON ROOM AIR @REST 86%. SPO2 ON 2L NC @REST 92%. Initialized on 02/14/22 06:19 - END OF NOTE 02/13/22 11:15 Case Management Note by Inna Burt S/W PATIENT- SHE CONTINUES TO DENY ANY NEW NEEDS AT TIME OF DC. SHE PLANS TO RETURN HOME TO HER PLF AT TIME OF DC Initialized on 02/13/22 11:15 - END OF NOTE Assessment/Plan (1) Atrial fibrillation with rapid ventricular response Current Visit: No Status: Acute Assessment & Plan: rate controlled on po lopressor, will change to po eliquis. stable currently Code(s): I48.91 - UNSPECIFIED ATRIAL FIBRILLATION (2) Cellulitis of right leg Current Visit: Yes Status: Acute Assessment & Plan: on rocephin Code(s): L03.115 - CELLULITIS OF RIGHT LOWER LIMB (3) COPD (chronic obstructive pulmonary disease) Current Visit: Yes Status: Acute (4) Chronic hypoxemic respiratory failure Current Visit: Yes Status: Acute Assessment & Plan: will qualify for home oxygen, likely home tomorrow
[2022-02-14] MEDS: Lasix 40 MG/4 ML IV SCH (10:57)
[2022-02-14] MEDS: ROCEPHIN 1 Gm-D5w 50 ml Bag** 1 G/50 ML IVPB IV SCH (11:00)
[2022-02-14] MEDS: Klor Con PO SCH (11:02)
[2022-02-14] MEDS: ELIQUIS 2.5 MG TABLET PO SCH ×2 (11:03→22:04)
[2022-02-14] MEDS: VENTOLIN COMMON CANISTER IH PRN (11:36)
[2022-02-15] MEDS: DUONEB 0.5-3 MG/3 ml Neb IH PRN ×2 (01:44→08:55)
[2022-02-15 05:06] LABS: ALBUMIN 3.9 g/dL (3.5-5.0); ANION GAP 11.5 MEQ/L (5-15); BILIRUBIN,TOTAL 1.4 mg/dL (0.2-1.3); Calcium 8.8 mg/dL (8.4-10.2); Creatinine 1 1.17 mg/dL (0.52-1.04); EST GLOMERULAR FILTRATION RATE 47.9 ML/MIN; Potassium 3.4 mmol/L (3.5-5.1); Total Protein 7.4 g/dL (6.3-8.2)
[2022-02-15 05:08] LABS: Hematocrit 46.8 % (35-47); Hemoglobin 14.9 g/dL (12.0-16.0); Mean Cell Volume 87.2 fL (78-100); Mean Corpuscular Hemoglobin 27.7 pg (26-32); Mean Corpuscular Hgb Concent. 31.8 g/dL (32-36); Mean Platelet Volume 11.5 fL (7.5-11.0); Platelet Count 157 x10^3/uL (150-450); Red Blood Count 5.37 x10^6/uL (4.1-5.4); Red Cell Distribution Width 15.3 % (11.5-14.0); White Blood Count 7.1 x10^3/uL (4.0-10.5)
[2022-02-15] MEDS: Sodium Chloride 0.9% 10 ML FLUSH Syringe IV SCH (06:32)
[2022-02-15 07:24] VITALS: BP 135/86; O2SAT 95
--- NOTE | 2022-02-15 08:26 | PCM.DS ---
Discharge Summary Date of Admission: 02/12/22 10:31 Admitting Physician: LUIS LEONE Primary Care Provider: KALPESH JIMENEZ VIVIANE Allergies Allergies cortisone Allergy (Severe, Verified 09/29/18 11:59) swelling of lips zolpidem [From Ambien] Adverse Reaction (Severe, Verified 09/29/18 11:59) Confusion Hospital Summary - Hospital Course Hospital Course: patient admitted with a fib with rvr and copd. requiring oxygen 2 L and rate is controlled on lopressor, tolerating eliquis. doing well at the time of discharge. - Vitals & Intake/Output Vital Signs: Vital Signs Temperature 97.9 F 02/15/22 07:23 Pulse Rate 95 H 02/15/22 07:23 Respiratory Rate 16 02/15/22 07:23 Blood Pressure 135/86 02/15/22 07:23 O2 Sat by Pulse Oximetry 95 02/15/22 07:23 Intake & Output: Intake & Output 02/12/22 02/13/22 02/14/22 02/15/22 11:59 11:59 11:59 11:59 Intake Total 909 135 0316 Output Total 700 500 Balance -787 806 4928 Weight 74.2 kg - Lab Result Diagrams: 02/15/22 04:40 02/15/22 04:40 Lab Results-Last 24 Hrs: Lab Results-Last 24 Hours 02/14/22 02/14/22 02/14/22 Range/Units 11:55 16:29 21:45 WBC (4.0-10.5) x10^3/uL RBC (4.1-5.4) x10^6/uL Hgb (12.0-16.0) g/dL Hct (35-47) % MCV (78-100) fL MCH (26-32) pg MCHC (32-36) g/dL RDW (11.5-14.0) % Plt Count (150-450) x10^3/uL MPV (7.5-11.0) fL Sodium (137-145) mmol/L Potassium (3.5-5.1) mmol/L Chloride (98-107) mmol/L Carbon Dioxide (22-30) mmol/L Anion Gap (5-15) MEQ/L BUN (7-17) mg/dL Creatinine (0.52-1.04) mg/dL Estimated GFR ML/MIN Glucose (74-106) mg/dL POC Glucometer 206 H 122 H 117 H (74 to 106) mg/dL Calcium (8.4-10.2) mg/dL Total Bilirubin (0.2-1.3) mg/dL AST (14-36) U/L ALT (0-35) U/L Alkaline Phosphatase (38-126) U/L Serum Total Protein (6.3-8.2) g/dL Albumin (3.5-5.0) g/dL 02/15/22 02/15/22 02/15/22 Range/Units 04:40 04:40 07:32 WBC 7.1 (4.0-10.5) x10^3/uL RBC 5.37 (4.1-5.4) x10^6/uL Hgb 14.9 (12.0-16.0) g/dL Hct 46.8 (35-47) % MCV 87.2 (78-100) fL MCH 27.7 (26-32) pg MCHC 31.8 L (32-36) g/dL RDW 15.3 H (11.5-14.0) % Plt Count 157 (150-450) x10^3/uL MPV 11.5 H (7.5-11.0) fL Sodium 135 L (137-145) mmol/L Potassium 3.4 L (3.5-5.1) mmol/L Chloride 95 L (98-107) mmol/L Carbon Dioxide 32 H (22-30) mmol/L Anion Gap 11.5 (5-15) MEQ/L BUN 32 H (7-17) mg/dL Creatinine 1.17 H (0.52-1.04) mg/dL Estimated GFR 47.9 ML/MIN Glucose 116 H (74-106) mg/dL POC Glucometer 105 (74 to 106) mg/dL Calcium 8.8 (8.4-10.2) mg/dL Total Bilirubin 1.40 H (0.2-1.3) mg/dL AST 29 (14-36) U/L ALT 18 (0-35) U/L Alkaline Phosphatase 227 H (38-126) U/L Serum Total Protein 7.4 (6.3-8.2) g/dL Albumin 3.9 (3.5-5.0) g/dL Micro Results-Entire Visit: Microbiology 02/13/22 13:55 Urine Culture - Final Clean Catch Midstream NO GROWTH Accuchecks Date 02/15/22 Date 02/14/22 Date 02/14/22 Time 08:02 Time 16:59 Time 12:25 - Procedures and Test Procedures and Tests throughout Hospitalization: Therapy Orders & Screens 02/12/22 12:15 OT Screen per Nursing Assess ONCE Comment: Protocol Order Physician Instructions: Greater than 3 points order OT Admission Screening Reason For Exam: Triggered on Admission Diagnosis: AFIB RVR Open Wound/Cellutlitis/Pressure Ulcers: Yes Acute Fx/ORIF/Change in wt bearing status: No Severe MUSCULOSKELETAL pain: No ADL Dysfunction: No Acute CVA w/Hemiparesis/Hemiplegia: No Decreased Functional Mobility/Strength: No Sprain/Strain: No Acute Post-op Mobility Dysfunction: No Total Points: 5 PT Screen per Nursing Assess ONCE Comment: Protocol Order Physician Instructions: Greater than 3 points order PT Admission Screenin Reason For Exam: Triggered on Admission Diagnosis: AFIB RVR Open Wound/Cellutlitis/Pressure Ulcers: Yes Acute Fx/ORIF/Change in wt bearing status: No Severe MUSCULOSKELETAL pain: No ADL Dysfunction: No Acute CVA w/Hemiparesis/Hemiplegia: No Decreased Functional Mobility/Strength: No Sprain/Strain: No Acute Post-op Mobility Dysfunction: No Total Points: 5 02/12/22 17:14 Oxygen NASAL CANNULA 2 lpm Comment: Diagnosis: AFIB RVR 02/13/22 07:00 Respiratory Therapy Assessment DAILY Comment: Diagnosis: AFIB RVR Discharge Exam General Appearance: no apparent distress Neurologic Exam: alert, oriented x 3 Respiratory Exam: diminished breath sounds, prolonged expirations Cardiovascular Exam: irregular Gastrointestinal/Abdomen Exam: soft Final Diagnosis/Problem List - Final Discharge Diagnosis/Problem (1) Atrial fibrillation with rapid ventricular response Current Visit: No Status: Acute Assessment & Plan: rate controlled ,continue eliquis Code(s): I48.91 - UNSPECIFIED ATRIAL FIBRILLATION (2) Cellulitis of right leg Current Visit: Yes Status: Acute Assessment & Plan: improved, home on keflex Code(s): L03.115 - CELLULITIS OF RIGHT LOWER LIMB (3) COPD (chronic obstructive pulmonary disease) Current Visit: Yes Status: Acute (4) Chronic hypoxemic respiratory failure Current Visit: Yes Status: Acute Assessment & Plan: qualified for home oxygen, she needs 2L continuous oxygen at discharge. - Discharge Disposition: Home, Self-Care Condition: Stable Prescriptions: New Apixaban [Eliquis 5 mg Tablet] 5 mg PO BID #60 tablet Cephalexin Mh 500 mg [Keflex 500 mg] 500 mg PO TID 7 Days #21 cap Metoprolol Succinate 100 mg [Toprol Xl 100 MG] 100 mg PO DAILY #30 tablet Continue Furosemide 20 mg [Lasix 20 mg] 20 mg PO DAILY Albuterol Common Canister [Ventolin Common Canister] 1 puff IH DAILY PRN PRN PRN Reason: Shortness Of Breath/Wheezing Albuterol/Ipratropium 3ml Neb* [DUONEB 0.5-3 MG/3 ml Neb] 3 ml IH Q4-6HPRN PRN PRN Reason: Shortness Of Breath/Wheezing Glimepiride 2 mg [Amaryl 2 MG] 2 mg PO DAILY Follow up with: KALPESH JIMENEZ MD [Primary Care Provider] - 02/25/22 2:15 pm
[2022-02-15 08:57] VITALS: PULSE 60
[2022-02-15] MEDS: Lasix 40 MG/4 ML IV SCH (10:10)
[2022-02-15] MEDS: ELIQUIS 2.5 MG TABLET PO SCH (10:10)
[2022-02-15] MEDS: Klor Con PO SCH (10:10)
[2022-02-15] MEDS: Toprol Xl 100 MG PO SCH (10:10)
[2022-02-15] MEDS: ROCEPHIN 1 Gm-D5w 50 ml Bag** 1 G/50 ML IVPB IV SCH (10:11)
== END 2022-02-15 11:36 | disposition home or self-care (01) ==
LOC: ICU 10:31
PROVIDERS: ADMIT Family Medicine; ATTEND Family Medicine
DX: I48.20 Chronic atrial fibrillation, unspecified (principal); L03.115 Cellulitis of right lower limb; J44.9 Chronic obstructive pulmonary disease, unspecified; J96.11 Chronic respiratory failure with hypoxia; I10 Essential (primary) hypertension; Z20.828 Contact with and (suspected) exposure to other viral communicable diseases; Z79.01 Long term (current) use of anticoagulants; Z79.899 Other long term (current) drug therapy
CPT/HCPCS: 0241U; 36415; 71045; 80053; 81015; 82947; 83036; 83880; 85025; 85027; 87086; 93306; 93926; 93971; 94640; 94760; 93268; J0696; J1650; J1940; A9270-GY; G0378

== ENCOUNTER 2023-01-18 08:31 | Observation (INO) | payer MEDICARE ==
[2023-01-18] MEDS ORDERED: Lasix 40 MG/4 ML IV ONE (08:38)
[2023-01-18] MEDS ORDERED: LOPRESSOR INJECTION IV ONE ×3 (08:41→09:50)
[2023-01-18] MEDS ORDERED: Lasix 40 MG/4 ML ONE (08:57)
[2023-01-18 09:00] LABS: Absolute Neutrophil Ct (ANC) 5.31 x10^3/uL (1.4-6.9); BASOPHIL % 1.1 % (0.0-0.4); Basophil (Absolute #) 0.09 x10^3/uL (0-0.4); Eosinophil % 6.6 % (0.00-5.0); Eosinophil (Absolute #) 0.56 x10^3/uL (0-0.5); Hematocrit 45.8 % (35-47); Hemoglobin 13.9 g/dL (12.0-16.0); IMMATURE GRAN # 0.02 x10^3u/L (0.00-0.03); IMMATURE GRAN % 0.2 % (0.00-0.4); Lymphocyte (Absolute #) 1.69 x10^3/uL (1.0-4.6); Mean Cell Volume 79.9 fL (78-100); Mean Corpuscular Hemoglobin 24.3 pg (26-32); Mean Corpuscular Hgb Concent. 30.3 g/dL (32-36); Mean Platelet Volume 10.3 fL (7.5-11.0); Monocyte (Absolute #) 0.78 x10^3/uL (0.0-1.3); Monocytes % 9.2 % (0.0-12.0); Neutrophil % 62.9 % (36.0-66.0); Platelet Count 176 x10^3/uL (150-450); Red Blood Count 5.73 x10^6/uL (4.1-5.4); Red Cell Distribution Width 17.4 % (11.5-14.0); White Blood Count 8.5 x10^3/uL (4.0-10.5)
[2023-01-18] MEDS: Sodium Chloride 0.9% 1000 ML 1,000 ML IV SCH (09:00)
--- NOTE | 2023-01-18 09:40 | ERPHSYRPT ---
- History of Present Illness Time Seen by Provider: 01/18/23 08:40 Source: patient, family Exam Limitations: no limitations Patient Subjective Stated Complaint: PT HERE FOR INCREASE FOB FOR 3-4 DAYS WITH A COUGH FOR 2 WEEKS Triage Nursing Assessment: PT ALERT, ARRIVED PER WC, RESP LABORED WITH MOVEMENT, SKIN W/D/P. HAS CONGESTED COUNDING COUGH, NO EDEMA NOTED Physician History: Patient is a 77-year-old white female who presents with complaint of shortness of breath for 3 to 4 days and a cough which has been present for 2 weeks. She denies any fever she is a former smoker she does have COPD. She is supposed to be on home O2 but she rarely uses it. She does have a pacemaker probable defibrillator which was implanted in March of this year. She does have frequent episodes of pneumonia and a history of CHF. She also has episodes of atrial fibrillation on several occasions and I believe that is what prompted the pacemaker defibrillator placement. Timing/Duration: week(s) (2) Severity: moderate Modifying Factors: Improves With: movement Associated Symptoms: shortness of breath, cough Allergies/Adverse Reactions: cortisone Allergy (Severe, Verified 01/18/23 08:46) swelling of lips zolpidem [From Ambien] Adverse Reaction (Severe, Verified 01/18/23 08:46) Confusion Home Medications: Albuterol Common Canister [Ventolin Common Canister] 1 puff IH DAILY PRN PRN 09/29/18 [History] Albuterol/Ipratropium 3ml Neb* [DUONEB 0.5-3 MG/3 ml Neb] 3 ml IH Q4-6HPRN PRN 09/29/18 [History] Furosemide 20 mg [Lasix 20 mg] 20 mg PO DAILY 09/29/18 [History] Atorvastatin Calcium 20 mg PO DAILY 01/18/23 [History] Losartan Potassium 25 mg PO DAILY 01/18/23 [History] Potassium Chloride 1 ea DAILY 01/18/23 [History] Spironolactone 25 mg [Aldactone 25 MG] 25 mg PO DAILY 01/18/23 [History] Hx Tetanus, Diphtheria Vaccination/Date Given: Yes Hx Influenza Vaccination/Date Given: No Hx Pneumococcal Vaccination/Date Given: Yes Immunizations Up to Date: Yes Travel Risk - International Travel Have you traveled outside of the country in past 3 weeks: No - Coronavirus Screening Are you exhibiting any of the following symptoms?: Yes Symptoms: Cough: New Onset, Shortness of Breath Close contact with a COVID-19 positive Pt in past 14-21 Days: No - Vaccine Status Have you recieved a Covid-19 vaccination: Yes Environmental Attorney: Unknown - Vaccination Dates Date of 2cond Vaccination (if applicable): 2020 Dates if Unknown: ? - Review of Systems Constitutional: Malaise, No Fever, No Chills Eyes: No Symptoms Ears, Nose, & Throat: No Symptoms Respiratory: Cough, Dyspnea, Wheezing Cardiac: Palpitations, No Chest Pain, No Edema, No Syncope Abdominal/Gastrointestinal: No Abdominal Pain, No Nausea, No Vomiting, No Diarrhea Genitourinary Symptoms: No Dysuria Musculoskeletal: No Back Pain, No Neck Pain Skin: No Rash Neurological: No Dizziness, No Focal Weakness, No Sensory Changes Psychological: No Symptoms Endocrine: No Symptoms All Other Systems: Reviewed and Negative - Past Medical History Pertinent Past Medical History: Yes Neurological History: No Pertinent History ENT History: No Pertinent History Cardiac History: Congestive Heart Failure, Coronary Artery Disease, Hypertension Respiratory History: Bronchitis, CHF Endocrine Medical History: No Pertinent History Musculoskeletal History: Arthritis GI Medical History: No Pertinent History History: No Pertinent History Psycho-Social History: No Pertinent History Female Reproductive Disorders: No Pertinent History Other Medical History: myopathy - Past Surgical History Past Surgical History: Yes Neuro Surgical History: No Pertinent History Cardiac: No Pertinent History Respiratory: No Pertinent History Gastrointestinal: No Pertinent History Genitourinary: No Pertinent History Musculoskeletal: No Pertinent History Female Surgical History: Tubal Ligation Other Surgical History: MASTOID OPERATION - Social History Smoking Status: Former smoker How long have you smoked: 3 MONTHS Exposure to second hand smoke: No Alcohol Use: None Drug Use: none Patient Lives Alone: Yes Significant Family History: heart disease, hypertension - Nursing Vital Signs Nursing Vital Signs: Initial Vital Signs Temperature 97 F 01/18/23 08:38 Pulse Rate 140 H 01/18/23 08:38 Respiratory Rate 22 01/18/23 08:38 Blood Pressure 129/62 01/18/23 08:38 O2 Sat by Pulse Oximetry 95 01/18/23 08:38 Pain Scale Pain Intensity 8 - Physical Exam General Appearance: mild distress, alert Eye Exam: PERRL/EOMI, eyes nml inspection Ears, Nose, Throat Exam: normal ENT inspection, TMs normal, pharynx normal, moist mucous membranes Neck Exam: normal inspection, non-tender, supple, full range of motion Respiratory Exam: respiratory distress, diminished breath sounds, crackles/rales Cardiovascular Exam: normal heart sounds, normal peripheral pulses, tachycardia, irregular Gastrointestinal/Abdomen Exam: soft, normal bowel sounds, No tenderness, No mass Back Exam: normal inspection, normal range of motion, No CVA tenderness, No vertebral tenderness Extremity Exam: normal inspection, normal range of motion, pelvis stable Neurologic Exam: alert, oriented x 3, cooperative, normal mood/affect, nml cerebellar function, nml station & gait, sensation nml, No motor deficits Skin Exam: normal color, warm, dry, No rash Lymphatic Exam: No adenopathy SpO2: 97 - Course Nursing assessment & vital signs reviewed: Yes EKG Interpreted by Me: RATE (136), A-fib, NORMAL AXIS, Non-specific ST Changes, Other (Poor R wave progression) - Radiology Exams Chest X-ray Interpretation: Interpreted by me (No acute findings) Ordered Tests: Active Orders 24 hr Category Date Time Status EKG-ER Only STAT Care 01/18/23 08:38 Active IV Insertion STAT Care 01/18/23 08:38 Active CHEST 1 VIEW (PORTABLE) Stat Exams 01/18/23 08:39 Taken CBC W DIFF Stat Lab 01/18/23 08:38 Completed CMP Stat Lab 01/18/23 08:45 Completed D-DIMER QUANTITATIVE Stat Lab 01/18/23 08:45 Completed Lactic Acid Stat Lab 01/18/23 09:05 Completed MAGNESIUM Stat Lab 01/18/23 08:45 Completed NT PRO BNPII Stat Lab 01/18/23 08:45 Completed PROCALCITONIN Stat Lab 01/18/23 08:45 Completed PROTIME WITH INR Stat Lab 01/18/23 08:45 Completed PTT Stat Lab 01/18/23 08:45 Completed TROPONIN Q4H Lab 01/18/23 08:45 Completed TROPONIN Q4H Lab 01/18/23 12:45 Ordered TROPONIN Q4H Lab 01/18/23 16:45 Ordered UA W/RFX UR CULTURE Stat Lab 01/18/23 10:14 Completed Medication Summary Generic Name Dose Route Start Last Admin Trade Name Freq PRN Reason Stop Dose Admin Sodium Chloride 1,000 mls @ 50 mls/hr 01/18/23 08:45 01/18/23 09:00 Sodium Chloride 0.9% 1000 Ml IV 02/17/23 08:44 50 mls/hr .Q20H SANTOSH Administration Discontinued Medications Generic Name Dose Route Start Last Admin Trade Name Freq PRN Reason Stop Dose Admin Furosemide 40 mg 01/18/23 08:38 01/18/23 09:00 Furosemide 40 Mg/4 Ml Vial IV 01/18/23 08:39 40 mg STAT ONE Administration Furosemide Confirm 01/18/23 08:57 Furosemide 40 Mg/4 Ml Vial Administered 01/18/23 08:58 Dose 40 mg .ROUTE .STK-MED ONE Metoprolol Tartrate 5 mg 01/18/23 08:41 01/18/23 08:45 Metoprolol Tartrate 5 Mg/5 Ml Vial IV 01/18/23 08:42 5 mg STAT ONE Administration Metoprolol Tartrate Confirm 01/18/23 08:42 Metoprolol Tartrate 5 Mg/5 Ml Vial Administered 01/18/23 08:43 Dose 5 mg IV .STK-MED ONE Metoprolol Tartrate 5 mg 01/18/23 09:50 01/18/23 09:53 Metoprolol Tartrate 5 Mg/5 Ml Vial IV 01/18/23 09:51 5 mg STAT ONE Administration Ondansetron HCl 4 mg 01/18/23 10:20 01/18/23 10:21 Zofran 4 Mg/Udtablet Orally Disintegrating PO 01/18/23 10:21 4 mg STAT ONE Administration Ondansetron HCl Confirm 01/18/23 10:20 Zofran 4 Mg/Udtablet Orally Disintegrating Administered 01/18/23 10:21 Dose 4 mg .ROUTE .STK-MED ONE Lab/Rad Data: Laboratory Result Diagrams 01/18/23 08:38 01/18/23 08:45 Laboratory Results 01/18/23 01/18/23 01/18/23 Range/Units 10:14 09:50 09:05 WBC (4.0-10.5) x10^3/uL RBC (4.1-5.4) x10^6/uL Hgb (12.0-16.0) g/dL Hct (35-47) % MCV (78-100) fL MCH (26-32) pg MCHC (32-36) g/dL RDW (11.5-14.0) % Plt Count (150-450) x10^3/uL MPV (7.5-11.0) fL Gran % (36.0-66.0) % Immature Gran % (Auto) (0.00-0.4) % Nucleat RBC Rel Count (0.00-0.1) % Eos # (Auto) (0-0.5) x10^3/uL Immature Gran # (Auto) (0.00-0.03) x10^3u/L Absolute Lymphs (auto) (1.0-4.6) x10^3/uL Absolute Monos (auto) (0.0-1.3) x10^3/uL Absolute Nucleated RBC (0.00-0.01) x10^3u/L Lymphocytes % (24.0-44.0) % Monocytes % (0.0-12.0) % Eosinophils % (0.00-5.0) % Basophils % (0.0-0.4) % Absolute Granulocytes (1.4-6.9) x10^3/uL Basophils # (0-0.4) x10^3/uL PT (9.4-12.5) SECONDS INR (0.8-3.0) APTT (25.1-36.5) SECONDS D-Dimer (0.0-0.50) mg/L Sodium (137-145) mmol/L Potassium (3.5-5.1) mmol/L Chloride (98-107) mmol/L Carbon Dioxide (22-30) mmol/L Anion Gap (5-15) MEQ/L BUN (7-17) mg/dL Creatinine (0.52-1.04) mg/dL Estimated GFR ML/MIN Glucose (74-106) mg/dL Lactic Acid 1.2 (0.4-2.0) Calcium (8.4-10.2) mg/dL Magnesium (1.6-2.3) mg/dL Total Bilirubin (0.2-1.3) mg/dL AST (14-36) U/L ALT (0-35) U/L Alkaline Phosphatase (38-126) U/L Troponin I (0.000-0.034) ng/mL NT-Pro-B Natriuret Pep (<300) pg/mL Serum Total Protein (6.3-8.2) g/dL Albumin (3.5-5.0) g/dL Procalcitonin (0.030-0.080) ng/mL Urine Color Yellow (Yellow) Urine Appearance Clear (Clear) Urine pH 6.0 (4.6-8.0) Ur Specific [place] 1.010 (1.005-1.030) Urine Protein Negative (Negative) Urine Glucose (UA) Negative (Negative) mg/dL Urine Ketones Negative (Negative) Urine Blood Negative (Negative) Urine Nitrite Negative (Negative) Urine Bilirubin Negative (Negative) Urine Urobilinogen 0.2 (0.2) mg/dL Ur Leukocyte Esterase Trace A (Negative) U Hyaline Cast (Auto) NONE SEEN (0-2) /LPF Urine Microscopic RBC 0-2 (0-5) /HPF Urine Microscopic WBC 0-2 (0-5) /HPF Ur Epithelial Cells None Seen (None Seen) /HPF Urine Bacteria None Seen (None Seen) /HPF Urine Culture Reflexed NO (NO) Influenza Type A Ag NEGATIVE (NEGATIVE) Influenza Type B Ag NEGATIVE (NEGATIVE) RSV (PCR) NEGATIVE (NEGATIVE) SARS-CoV-2 (PCR) NEGATIVE (NEGATIVE) 01/18/23 01/18/23 01/18/23 Range/Units 08:45 08:45 08:45 WBC (4.0-10.5) x10^3/uL RBC (4.1-5.4) x10^6/uL Hgb (12.0-16.0) g/dL Hct (35-47) % MCV (78-100) fL MCH (26-32) pg MCHC (32-36) g/dL RDW (11.5-14.0) % Plt Count (150-450) x10^3/uL MPV (7.5-11.0) fL Gran % (36.0-66.0) % Immature Gran % (Auto) (0.00-0.4) % Nucleat RBC Rel Count (0.00-0.1) % Eos # (Auto) (0-0.5) x10^3/uL Immature Gran # (Auto) (0.00-0.03) x10^3u/L Absolute Lymphs (auto) (1.0-4.6) x10^3/uL Absolute Monos (auto) (0.0-1.3) x10^3/uL Absolute Nucleated RBC (0.00-0.01) x10^3u/L Lymphocytes % (24.0-44.0) % Monocytes % (0.0-12.0) % Eosinophils % (0.00-5.0) % Basophils % (0.0-0.4) % Absolute Granulocytes (1.4-6.9) x10^3/uL Basophils # (0-0.4) x10^3/uL PT 11.7 (9.4-12.5) SECONDS INR 1.08 (0.8-3.0) APTT 26.1 (25.1-36.5) SECONDS D-Dimer 0.49 (0.0-0.50) mg/L Sodium 138 (137-145) mmol/L Potassium 4.3 (3.5-5.1) mmol/L Chloride 100 (98-107) mmol/L Carbon Dioxide 28 (22-30) mmol/L Anion Gap 14.5 (5-15) MEQ/L BUN 46 H (7-17) mg/dL Creatinine 1.25 H (0.52-1.04) mg/dL Estimated GFR 44.3 ML/MIN Glucose 145 H (74-106) mg/dL Lactic Acid (0.4-2.0) Calcium 9.9 (8.4-10.2) mg/dL Magnesium 2.4 H (1.6-2.3) mg/dL Total Bilirubin 1.10 (0.2-1.3) mg/dL AST 32 (14-36) U/L ALT 25 (0-35) U/L Alkaline Phosphatase 158 H (38-126) U/L Troponin I < 0.012 (0.000-0.034) ng/mL NT-Pro-B Natriuret Pep 2050 (<300) pg/mL Serum Total Protein 8.4 H (6.3-8.2) g/dL Albumin 4.6 (3.5-5.0) g/dL Procalcitonin 0.071 (0.030-0.080) ng/mL Urine Color (Yellow) Urine Appearance (Clear) Urine pH (4.6-8.0) Ur Specific [place] (1.005-1.030) Urine Protein (Negative) Urine Glucose (UA) (Negative) mg/dL Urine Ketones (Negative) Urine Blood (Negative) Urine Nitrite (Negative) Urine Bilirubin (Negative) Urine Urobilinogen (0.2) mg/dL Ur Leukocyte Esterase (Negative) U Hyaline Cast (Auto) (0-2) /LPF Urine Microscopic RBC (0-5) /HPF Urine Microscopic WBC (0-5) /HPF Ur Epithelial Cells (None Seen) /HPF Urine Bacteria (None Seen) /HPF Urine Culture Reflexed (NO) Influenza Type A Ag (NEGATIVE) Influenza Type B Ag (NEGATIVE) RSV (PCR) (NEGATIVE) SARS-CoV-2 (PCR) (NEGATIVE) 01/18/23 Range/Units 08:38 WBC 8.5 (4.0-10.5) x10^3/uL RBC 5.73 H (4.1-5.4) x10^6/uL Hgb 13.9 (12.0-16.0) g/dL Hct 45.8 (35-47) % MCV 79.9 (78-100) fL MCH 24.3 L (26-32) pg MCHC 30.3 L (32-36) g/dL RDW 17.4 H (11.5-14.0) % Plt Count 176 (150-450) x10^3/uL MPV 10.3 (7.5-11.0) fL Gran % 62.9 (36.0-66.0) % Immature Gran % (Auto) 0.2 (0.00-0.4) % Nucleat RBC Rel Count 0.0 (0.00-0.1) % Eos # (Auto) 0.56 H (0-0.5) x10^3/uL Immature Gran # (Auto) 0.02 (0.00-0.03) x10^3u/L Absolute Lymphs (auto) 1.69 (1.0-4.6) x10^3/uL Absolute Monos (auto) 0.78 (0.0-1.3) x10^3/uL Absolute Nucleated RBC 0.00 (0.00-0.01) x10^3u/L Lymphocytes % 20.0 L (24.0-44.0) % Monocytes % 9.2 (0.0-12.0) % Eosinophils % 6.6 H (0.00-5.0) % Basophils % 1.1 (0.0-0.4) % Absolute Granulocytes 5.31 (1.4-6.9) x10^3/uL Basophils # 0.09 (0-0.4) x10^3/uL PT (9.4-12.5) SECONDS INR (0.8-3.0) APTT (25.1-36.5) SECONDS D-Dimer (0.0-0.50) mg/L Sodium (137-145) mmol/L Potassium (3.5-5.1) mmol/L Chloride (98-107) mmol/L Carbon Dioxide (22-30) mmol/L Anion Gap (5-15) MEQ/L BUN (7-17) mg/dL Creatinine (0.52-1.04) mg/dL Estimated GFR ML/MIN Glucose (74-106) mg/dL Lactic Acid (0.4-2.0) Calcium (8.4-10.2) mg/dL Magnesium (1.6-2.3) mg/dL Total Bilirubin (0.2-1.3) mg/dL AST (14-36) U/L ALT (0-35) U/L Alkaline Phosphatase (38-126) U/L Troponin I (0.000-0.034) ng/mL NT-Pro-B Natriuret Pep (<300) pg/mL Serum Total Protein (6.3-8.2) g/dL Albumin (3.5-5.0) g/dL Procalcitonin (0.030-0.080) ng/mL Urine Color (Yellow) Urine Appearance (Clear) Urine pH (4.6-8.0) Ur Specific [place] (1.005-1.030) Urine Protein (Negative) Urine Glucose (UA) (Negative) mg/dL Urine Ketones (Negative) Urine Blood (Negative) Urine Nitrite (Negative) Urine Bilirubin (Negative) Urine Urobilinogen (0.2) mg/dL Ur Leukocyte Esterase (Negative) U Hyaline Cast (Auto) (0-2) /LPF Urine Microscopic RBC (0-5) /HPF Urine Microscopic WBC (0-5) /HPF Ur Epithelial Cells (None Seen) /HPF Urine Bacteria (None Seen) /HPF Urine Culture Reflexed (NO) Influenza Type A Ag (NEGATIVE) Influenza Type B Ag (NEGATIVE) RSV (PCR) (NEGATIVE) SARS-CoV-2 (PCR) (NEGATIVE) - Progress Progress: improved Discussed with : Jaleel Will see patient in: hospital (observation) Counseled pt/family regarding: diagnosis Medical Desision Making - Independent Historian Additional History obtained from: Child - External Record(s) Reviewed Records reviewed as a part of evaluation & management: Inpatient (Patient's records from [facility] were reviewed for information regarding the placement of the pacemaker last March 2022) - Discussion of managment Care discussed with:: hospitalist (Dr. Salcedo) Reviewed:: Test results Agreed on:: decision to admit Will see patient: in hospital - Diagnostic Testing Diagnostic test were ordered, analyzed, and reviewed by me: Yes Radiological Interpretation: Interpreted by me - Risk of complications Low Risk: Low risk of morbidity from additional dx testing or treatment - Departure Departure Disposition: Observation Clinical Impression: Atrial fibrillation with rapid ventricular response Condition: Stable Critical Care Time: Yes Critical Care Time(excluding separately billable procedures): Critical 30-74 mins (35) Referrals: KALPESH JIMENEZ MD [Primary Care Provider] - Follow up/PCP as directed
[2023-01-18 10:16] LABS: D-DIMER QUANTITATIVE 0.49 mg/L (0.0-0.50); INR 1.08 (0.8-3.0); PROTIME 11.7 SECONDS (9.4-12.5); PTT 26.1 SECONDS (25.1-36.5)
[2023-01-18] MEDS ORDERED: ZOFRAN ODT 4 MG PO ONE (10:20)
[2023-01-18] MEDS ORDERED: ZOFRAN ODT 4 MG ONE (10:20)
[2023-01-18 10:23] LABS: Appearance Clear (Clear); Bacteria None Seen /HPF (None Seen); Bilirubin Negative (Negative); Blood Negative (Negative); Epithelial Cells None Seen /HPF (None Seen); Glucose, Urine Negative (Negative); Hyaline Casts NONE SEEN /LPF (0-2); Ketones Negative (Negative); Leukocyte Esterase Trace (Negative); Nitrite Negative (Negative); Protein,Urine Dip Negative (Negative); RBC 0-2 /HPF (0-5); Urobilinogen 0.2 mg/dL (0.2); WBC 0-2 /HPF (0-5)
[2023-01-18 10:30] LABS: ALBUMIN 4.6 g/dL (3.5-5.0); ANION GAP 14.5 MEQ/L (5-15); BILIRUBIN,TOTAL 1.1 mg/dL (0.2-1.3); Calcium 9.9 mg/dL (8.4-10.2); Creatinine 1 1.25 mg/dL (0.52-1.04); EST GLOMERULAR FILTRATION RATE 44.3 ML/MIN; MAGNESIUM 2.4 mg/dL (1.6-2.3); PROCALCITONIN 0.071 ng/mL (0.030-0.080); Potassium 4.3 mmol/L (3.5-5.1); Total Protein 8.4 g/dL (6.3-8.2)
[2023-01-18 10:35] LABS: ADD URINE CULTURE? NO (NO)
[2023-01-18 10:38] LABS: INFLUENZA A NEGATIVE (NEGATIVE); INFLUENZA B NEGATIVE (NEGATIVE); RESPIRATORY SYNCTIAL VIRUS NEGATIVE (NEGATIVE); SARS-CoV-2 Xpert Express NEGATIVE (NEGATIVE)
--- NOTE | 2023-01-18 12:58 | PCM.HP ---
History of Present Illness - Chief Complaint Chief Complaint: SOB Date: 01/18/23 History of Present Illness: is a 77 year old female with PMHx of CHF, pacemaker/defib, CAD, HTN, Bronchitis, COPD, and OA. She came to [place] ER today with complaints of shortness of breath for 3 to 4 days and a cough which has been present for 2 weeks. She feels all her sxs started with a cold and congestion that she is unable to cough up. She denies any fever she is a former smoker she does have COPD. She is on home O2 PRN and she rarely uses it. She does have a pacemaker/defibrillator which was implanted in March of this year. She does have frequent episodes of pneumonia and a history of CHF. She also has episodes of atrial fibrillation on several occasions prompting the pacemaker defibrillator placement. BNP is 2049 today- she was given Lasix in ER. Echo from 2021 shows she has an EF of 45-50%. She is in a-fib today and metoprolol gave in ER and will continue. She will need an updated echo and this cannot be done until Friday. She is currently on 2LNC and baseline is 2LNC PRN. She is no longer taking Eliquis and is not sure why- will restart. She denies CP, Abd pain N/V/D. - Review of Systems Constitutional: No Fever, No Chills Eyes: No Symptoms Ears, Nose, & Throat: No Symptoms Respiratory: Cough, Short Of Breath Cardiac: No Chest Pain, No Edema, No Syncope Abdominal/Gastrointestinal: No Abdominal Pain, No Nausea, No Vomiting, No Diarrhea Genitourinary Symptoms: No Dysuria Musculoskeletal: No Back Pain, No Neck Pain Skin: No Rash Neurological: No Dizziness, No Focal Weakness, No Sensory Changes Psychological: No Symptoms Endocrine: No Symptoms Hematologic/Lymphatic: No Symptoms Immunological/Allergic: No Symptoms Medications & Allergies Home Medications: Home Medication List Albuterol Common Canister [Ventolin Common Canister] 1 puff IH DAILY PRN PRN 09/29/18 [History Confirmed 01/18/23] Albuterol/Ipratropium 3ml Neb* [DUONEB 0.5-3 MG/3 ml Neb] 3 ml IH Q4-6HPRN PRN 09/29/18 [History Confirmed 01/18/23] Furosemide 20 mg [Lasix 20 mg] 40 mg PO DAILY 09/29/18 [History Confirmed 01/18/23] Atorvastatin Calcium 20 mg PO DAILY 01/18/23 [History Confirmed 01/18/23] Losartan Potassium 25 mg PO DAILY 01/18/23 [History Confirmed 01/18/23] Potassium Chloride 1 ea DAILY 01/18/23 [History Confirmed 01/18/23] Spironolactone 25 mg [Aldactone 25 MG] 25 mg PO DAILY 01/18/23 [History Confirmed 01/18/23] Allergies/Adverse Reactions: Allergies Allergy/AdvReac Type Severity Reaction Status Date / Time cortisone Allergy Severe swelling Verified 01/18/23 08:46 of lips zolpidem [From Ambien] AdvReac Severe Confusion Verified 01/18/23 08:46 - Past Medical History Past Medical History: Yes Neurological History: No Pertinent History ENT History: No Pertinent History Cardiac History: Arrhythmia, Congestive Heart Failure, Coronary Artery Disease, Hypertension Respiratory History: Bronchitis, CHF, COPD Endocrine Medical History: No Pertinent History Musculoskelatal History: No Pertinent History GI Medical History: No Pertinent History History: No Pertinent History Pyscho-Social History: No Pertinent History Reproductive Disorders: No Pertinent History Comment: myopathy - Female History Are you now?: No - Past Surgical History Past Surgical History: Yes Neuro Surgical History: No Pertinent History Cardiac History: Pacemaker Respiratory Surgery: No Pertinent History, Chest Surgery GI Surgical History: No Pertinent History Genitourinary Surgical Hx: No Pertinent History Musculskeletal Surgical Hx: No Pertinent History Female Surgical History: Tubal Ligation Other Surgical History: MASTOID OPERATION - Social History Smoking Status: Former smoker How long have you smoked: 3 MONTHS Exposure to second hand smoke: No Alcohol: Occasionally Drug Use: none Significant Family History: heart disease, hypertension - Physical Exam Vital Signs: Vital Signs - 24 hr Temp Pulse Resp BP BP Pulse Ox 01/18/23 12:18 97.3 F 91 H 15 147/65 93 L 01/18/23 11:26 97 01/18/23 11:00 115 H 15 132/64 92 L 01/18/23 10:34 116 H 17 131/74 92 L 01/18/23 10:33 124 H 22 85 L 01/18/23 10:32 131 H 24 90 L 01/18/23 10:00 134 H 15 121/67 68 L 01/18/23 09:57 100 H 20 136/86 92 L 01/18/23 09:31 111 H 22 128/59 95 01/18/23 09:03 113 H 19 131/104 100 01/18/23 09:01 110 H 22 116/58 96 01/18/23 08:51 22 97 01/18/23 08:38 97 F 140 H 22 129/62 95 General Appearance: no apparent distress, alert Neurologic Exam: alert, oriented x 3, cooperative, normal mood/affect, nml cerebellar function, nml station & gait, sensation nml, No motor deficits Eye Exam: PERRL/EOMI, eyes nml inspection Ears, Nose, Throat Exam: normal ENT inspection, TMs normal, pharynx normal, moist mucous membranes Neck Exam: normal inspection, non-tender, supple, full range of motion Respiratory Exam: normal breath sounds, lungs clear, No respiratory distress Cardiovascular Exam: regular rate/rhythm, normal heart sounds, normal peripheral pulses Gastrointestinal/Abdomen Exam: soft, normal bowel sounds, No tenderness, No mass Back Exam: normal inspection, normal range of motion, No CVA tenderness, No vertebral tenderness Extremity Exam: normal inspection, normal range of motion, pelvis stable Skin Exam: normal color, warm, dry, No rash Lymphatic Exam: No adenopathy Results - Labs Lab/Micro Results: Lab Results-Last 24 Hours 01/18/23 01/18/23 01/18/23 Range/Units 08:38 08:45 08:45 WBC 8.5 (4.0-10.5) x10^3/uL RBC 5.73 H (4.1-5.4) x10^6/uL Hgb 13.9 (12.0-16.0) g/dL Hct 45.8 (35-47) % MCV 79.9 (78-100) fL MCH 24.3 L (26-32) pg MCHC 30.3 L (32-36) g/dL RDW 17.4 H (11.5-14.0) % Plt Count 176 (150-450) x10^3/uL MPV 10.3 (7.5-11.0) fL Gran % 62.9 (36.0-66.0) % Immature Gran % (Auto) 0.2 (0.00-0.4) % Nucleat RBC Rel Count 0.0 (0.00-0.1) % Eos # (Auto) 0.56 H (0-0.5) x10^3/uL Immature Gran # (Auto) 0.02 (0.00-0.03) x10^3u/L Absolute Lymphs (auto) 1.69 (1.0-4.6) x10^3/uL Absolute Monos (auto) 0.78 (0.0-1.3) x10^3/uL Absolute Nucleated RBC 0.00 (0.00-0.01) x10^3u/L Lymphocytes % 20.0 L (24.0-44.0) % Monocytes % 9.2 (0.0-12.0) % Eosinophils % 6.6 H (0.00-5.0) % Basophils % 1.1 (0.0-0.4) % Absolute Granulocytes 5.31 (1.4-6.9) x10^3/uL Basophils # 0.09 (0-0.4) x10^3/uL PT 11.7 (9.4-12.5) SECONDS INR 1.08 (0.8-3.0) APTT 26.1 (25.1-36.5) SECONDS D-Dimer 0.49 (0.0-0.50) mg/L Sodium 138 (137-145) mmol/L Potassium 4.3 (3.5-5.1) mmol/L Chloride 100 (98-107) mmol/L Carbon Dioxide 28 (22-30) mmol/L Anion Gap 14.5 (5-15) MEQ/L BUN 46 H (7-17) mg/dL Creatinine 1.25 H (0.52-1.04) mg/dL Estimated GFR 44.3 ML/MIN Glucose 145 H (74-106) mg/dL Lactic Acid (0.4-2.0) Calcium 9.9 (8.4-10.2) mg/dL Magnesium 2.4 H (1.6-2.3) mg/dL Total Bilirubin 1.10 (0.2-1.3) mg/dL AST 32 (14-36) U/L ALT 25 (0-35) U/L Alkaline Phosphatase 158 H (38-126) U/L Troponin I (0.000-0.034) ng/mL NT-Pro-B Natriuret Pep 2050 (<300) pg/mL Serum Total Protein 8.4 H (6.3-8.2) g/dL Albumin 4.6 (3.5-5.0) g/dL Procalcitonin 0.071 (0.030-0.080) ng/mL Urine Color (Yellow) Urine Appearance (Clear) Urine pH (4.6-8.0) Ur Specific [place] (1.005-1.030) Urine Protein (Negative) Urine Glucose (UA) (Negative) mg/dL Urine Ketones (Negative) Urine Blood (Negative) Urine Nitrite (Negative) Urine Bilirubin (Negative) Urine Urobilinogen (0.2) mg/dL Ur Leukocyte Esterase (Negative) U Hyaline Cast (Auto) (0-2) /LPF Urine Microscopic RBC (0-5) /HPF Urine Microscopic WBC (0-5) /HPF Ur Epithelial Cells (None Seen) /HPF Urine Bacteria (None Seen) /HPF Urine Culture Reflexed (NO) Influenza Type A Ag (NEGATIVE) Influenza Type B Ag (NEGATIVE) RSV (PCR) (NEGATIVE) SARS-CoV-2 (PCR) (NEGATIVE) 01/18/23 01/18/23 01/18/23 Range/Units 08:45 09:05 09:50 WBC (4.0-10.5) x10^3/uL RBC (4.1-5.4) x10^6/uL Hgb (12.0-16.0) g/dL Hct (35-47) % MCV (78-100) fL MCH (26-32) pg MCHC (32-36) g/dL RDW (11.5-14.0) % Plt Count (150-450) x10^3/uL MPV (7.5-11.0) fL Gran % (36.0-66.0) % Immature Gran % (Auto) (0.00-0.4) % Nucleat RBC Rel Count (0.00-0.1) % Eos # (Auto) (0-0.5) x10^3/uL Immature Gran # (Auto) (0.00-0.03) x10^3u/L Absolute Lymphs (auto) (1.0-4.6) x10^3/uL Absolute Monos (auto) (0.0-1.3) x10^3/uL Absolute Nucleated RBC (0.00-0.01) x10^3u/L Lymphocytes % (24.0-44.0) % Monocytes % (0.0-12.0) % Eosinophils % (0.00-5.0) % Basophils % (0.0-0.4) % Absolute Granulocytes (1.4-6.9) x10^3/uL Basophils # (0-0.4) x10^3/uL PT (9.4-12.5) SECONDS INR (0.8-3.0) APTT (25.1-36.5) SECONDS D-Dimer (0.0-0.50) mg/L Sodium (137-145) mmol/L Potassium (3.5-5.1) mmol/L Chloride (98-107) mmol/L Carbon Dioxide (22-30) mmol/L Anion Gap (5-15) MEQ/L BUN (7-17) mg/dL Creatinine (0.52-1.04) mg/dL Estimated GFR ML/MIN Glucose (74-106) mg/dL Lactic Acid 1.2 (0.4-2.0) Calcium (8.4-10.2) mg/dL Magnesium (1.6-2.3) mg/dL Total Bilirubin (0.2-1.3) mg/dL AST (14-36) U/L ALT (0-35) U/L Alkaline Phosphatase (38-126) U/L Troponin I < 0.012 (0.000-0.034) ng/mL NT-Pro-B Natriuret Pep (<300) pg/mL Serum Total Protein (6.3-8.2) g/dL Albumin (3.5-5.0) g/dL Procalcitonin (0.030-0.080) ng/mL Urine Color (Yellow) Urine Appearance (Clear) Urine pH (4.6-8.0) Ur Specific [place] (1.005-1.030) Urine Protein (Negative) Urine Glucose (UA) (Negative) mg/dL Urine Ketones (Negative) Urine Blood (Negative) Urine Nitrite (Negative) Urine Bilirubin (Negative) Urine Urobilinogen (0.2) mg/dL Ur Leukocyte Esterase (Negative) U Hyaline Cast (Auto) (0-2) /LPF Urine Microscopic RBC (0-5) /HPF Urine Microscopic WBC (0-5) /HPF Ur Epithelial Cells (None Seen) /HPF Urine Bacteria (None Seen) /HPF Urine Culture Reflexed (NO) Influenza Type A Ag NEGATIVE (NEGATIVE) Influenza Type B Ag NEGATIVE (NEGATIVE) RSV (PCR) NEGATIVE (NEGATIVE) SARS-CoV-2 (PCR) NEGATIVE (NEGATIVE) 01/18/23 Range/Units 10:14 WBC (4.0-10.5) x10^3/uL RBC (4.1-5.4) x10^6/uL Hgb (12.0-16.0) g/dL Hct (35-47) % MCV (78-100) fL MCH (26-32) pg MCHC (32-36) g/dL RDW (11.5-14.0) % Plt Count (150-450) x10^3/uL MPV (7.5-11.0) fL Gran % (36.0-66.0) % Immature Gran % (Auto) (0.00-0.4) % Nucleat RBC Rel Count (0.00-0.1) % Eos # (Auto) (0-0.5) x10^3/uL Immature Gran # (Auto) (0.00-0.03) x10^3u/L Absolute Lymphs (auto) (1.0-4.6) x10^3/uL Absolute Monos (auto) (0.0-1.3) x10^3/uL Absolute Nucleated RBC (0.00-0.01) x10^3u/L Lymphocytes % (24.0-44.0) % Monocytes % (0.0-12.0) % Eosinophils % (0.00-5.0) % Basophils % (0.0-0.4) % Absolute Granulocytes (1.4-6.9) x10^3/uL Basophils # (0-0.4) x10^3/uL PT (9.4-12.5) SECONDS INR (0.8-3.0) APTT (25.1-36.5) SECONDS D-Dimer (0.0-0.50) mg/L Sodium (137-145) mmol/L Potassium (3.5-5.1) mmol/L Chloride (98-107) mmol/L Carbon Dioxide (22-30) mmol/L Anion Gap (5-15) MEQ/L BUN (7-17) mg/dL Creatinine (0.52-1.04) mg/dL Estimated GFR ML/MIN Glucose (74-106) mg/dL Lactic Acid (0.4-2.0) Calcium (8.4-10.2) mg/dL Magnesium (1.6-2.3) mg/dL Total Bilirubin (0.2-1.3) mg/dL AST (14-36) U/L ALT (0-35) U/L Alkaline Phosphatase (38-126) U/L Troponin I (0.000-0.034) ng/mL NT-Pro-B Natriuret Pep (<300) pg/mL Serum Total Protein (6.3-8.2) g/dL Albumin (3.5-5.0) g/dL Procalcitonin (0.030-0.080) ng/mL Urine Color Yellow (Yellow) Urine Appearance Clear (Clear) Urine pH 6.0 (4.6-8.0) Ur Specific [place] 1.010 (1.005-1.030) Urine Protein Negative (Negative) Urine Glucose (UA) Negative (Negative) mg/dL Urine Ketones Negative (Negative) Urine Blood Negative (Negative) Urine Nitrite Negative (Negative) Urine Bilirubin Negative (Negative) Urine Urobilinogen 0.2 (0.2) mg/dL Ur Leukocyte Esterase Trace A (Negative) U Hyaline Cast (Auto) NONE SEEN (0-2) /LPF Urine Microscopic RBC 0-2 (0-5) /HPF Urine Microscopic WBC 0-2 (0-5) /HPF Ur Epithelial Cells None Seen (None Seen) /HPF Urine Bacteria None Seen (None Seen) /HPF Urine Culture Reflexed NO (NO) Influenza Type A Ag (NEGATIVE) Influenza Type B Ag (NEGATIVE) RSV (PCR) (NEGATIVE) SARS-CoV-2 (PCR) (NEGATIVE) - Radiology Impressions Radiology Exams & Impressions: Radiology Procedures Category Date Time Status CHEST 1 VIEW (PORTABLE) Stat Exams 01/18/23 08:39 Taken - Other Procedures and Tests Respiratory Therapy 01/18/23 12:45 RT Screen per Nursing Assess ONCE Assessment/Plan (1) Atrial fibrillation with rapid ventricular response Current Visit: Yes Status: Acute Assessment & Plan: - ASA, Statin, metoprolol, eliquis - Echo from 02/12/22 EF 45-50% - tele - TSH, lipid panel - Heart healthy diet - Chest XR - Can order Echo Friday Code(s): I48.91 - UNSPECIFIED ATRIAL FIBRILLATION (2) Elevated brain natriuretic peptide (BNP) level Current Visit: Yes Status: Acute Assessment & Plan: - BNP 2049 - Lasix 40mg BID - 2LNC- baseline PRN Code(s): R79.89 - OTHER SPECIFIED ABNORMAL FINDINGS OF BLOOD CHEMISTRY (3) ANDRE (acute kidney injury) Current Visit: Yes Status: Acute Assessment & Plan: - Creat 1.25- baseline 0.84 - Gentle hydration at 50 ml/hr Code(s): N17.9 - ACUTE KIDNEY FAILURE, UNSPECIFIED (4) COPD (chronic obstructive pulmonary disease) Current Visit: No Status: Acute Assessment & Plan: - stable - Continue home meds - 2LNC O2 PRN (5) Hypertension Current Visit: No Status: Chronic Qualifiers: Hypertension type: primary hypertension Qualified Code(s): I10 - Essential (primary) hypertension Assessment & Plan: - stable continue losartan - Start metoprolol 25mg BID VTE: Eliquis Code status: full Next of Kin: Michelle Arnold [phone] Code(s): I10 - ESSENTIAL (PRIMARY) HYPERTENSION
[2023-01-18] MEDS: ECOTRIN 81 MG PO SCH (13:45)
[2023-01-18] MEDS: ELIQUIS 2.5 MG TABLET PO SCH ×2 (13:45→21:36)
[2023-01-18] MEDS: Aldactone 25 MG PO SCH (13:46)
[2023-01-18] MEDS: Cozaar 50 MG PO SCH (13:46)
[2023-01-18] MEDS: Klor Con PO SCH (13:47)
[2023-01-18] MEDS: Lopressor 25MG Tab PO SCH ×2 (14:37→21:36)
[2023-01-18] MEDS: Lasix 40 MG/4 ML IV SCH (16:45)
[2023-01-18] MEDS ORDERED: PROVENTIL 2.5 MG/3 ML NEB IH PRN (17:08)
--- NOTE | 2023-01-18 19:35 | XRAY ---
Indication: Short of breath. Tachycardia. Comparison: February 12, 2022 Portable chest remains hyperinflated and clear again with a few right lung calcified granulomas. Heart not enlarged with new left dual-lead pacemaker. Bony thorax intact again with osteopenia and mild degenerative changes. Impression: Nonacute hyperinflated chest with chronic features.
[2023-01-18] MEDS: ZOCOR 20MG PO SCH (21:36)
[2023-01-18] MEDS: Mucinex 600MG ER Tabs PO SCH (21:36)
[2023-01-18] MEDS: VENTOLIN COMMON CANISTER IH PRN (22:09)
[2023-01-19] MEDS: VENTOLIN COMMON CANISTER IH PRN ×6 (03:51→23:03)
[2023-01-19] MEDS: Sodium Chloride 0.9% 1000 ML 1,000 ML IV SCH (05:11)
[2023-01-19 05:46] LABS: Hematocrit 44.9 % (35-47); Hemoglobin 13.3 g/dL (12.0-16.0); Mean Cell Volume 80.2 fL (78-100); Mean Corpuscular Hemoglobin 23.8 pg (26-32); Mean Corpuscular Hgb Concent. 29.6 g/dL (32-36); Mean Platelet Volume 11.6 fL (7.5-11.0); Platelet Count 180 x10^3/uL (150-450); Red Cell Distribution Width 17.2 % (11.5-14.0); White Blood Count 7.7 x10^3/uL (4.0-10.5)
[2023-01-19 06:16] LABS: ALBUMIN 3.8 g/dL (3.5-5.0); BILIRUBIN,TOTAL 0.8 mg/dL (0.2-1.3); Calcium 9.1 mg/dL (8.4-10.2); Creatinine 1 1.18 mg/dL (0.52-1.04); EST GLOMERULAR FILTRATION RATE 47.3 ML/MIN; Potassium 4.1 mmol/L (3.5-5.1); Total Protein 6.9 g/dL (6.3-8.2)
[2023-01-19 06:31] LABS: Risk Ratio 2.2; TSH, 3RD Generation 2.51 mIU/L (0.47-4.68)
[2023-01-19] MEDS: Mucinex 600MG ER Tabs PO SCH ×2 (09:18→21:43)
[2023-01-19] MEDS: ECOTRIN 81 MG PO SCH (09:18)
[2023-01-19] MEDS: Aldactone 25 MG PO SCH (09:18)
[2023-01-19] MEDS: Klor Con PO SCH (09:18)
[2023-01-19] MEDS: Cozaar 50 MG PO SCH (09:20)
[2023-01-19] MEDS: Lopressor 25MG Tab PO SCH (09:21)
[2023-01-19] MEDS: Lasix 40 MG/4 ML IV SCH ×2 (09:22→16:04)
[2023-01-19] MEDS: ELIQUIS 2.5 MG TABLET PO SCH ×2 (09:23→21:42)
[2023-01-19] MEDS ORDERED: NON-FORMULARY ITEM (Atorvastatin Calcium [Atorvastatin Calcium] 20 MG Tablet) PO SCH (10:00)
[2023-01-19] MEDS ORDERED: NON-FORMULARY ITEM (Losartan Potassium [Losartan Potassium] 25 MG Tablet) PO SCH (10:00)
[2023-01-19] MEDS ORDERED: NON-FORMULARY ITEM (Potassium Chloride [Potassium Chloride] 10 MEQ Capsule.Er) PO SCH (10:00)
[2023-01-19] MEDS ORDERED: LASIX 20 MG PO SCH (10:00)
--- NOTE | 2023-01-19 11:25 | PCM.NOTE ---
Date and Time: 01/19/23 1054 Subjective Assessment: 01/18/23 is a 77 year old female with PMHx of CHF, pacemaker/defib, CAD, HTN, Bronchitis, COPD, and OA. She came to [place] ER today with complaints of shortness of breath for 3 to 4 days and a cough which has been present for 2 weeks. She feels all her sxs started with a cold and congestion that she is unable to cough up. She denies any fever she is a former smoker she does have COPD. She is on home O2 PRN and she rarely uses it. She does have a pacemaker/defibrillator which was implanted in March of this year. She does have frequent episodes of pneumonia and a history of CHF. She also has episodes of atrial fibrillation on several occasions prompting the pacemaker defibrillator placement. BNP is 2049 today- she was given Lasix in ER. Echo from 2021 shows she has an EF of 45-50%. She is in a-fib today and metoprolol gave in ER and will continue. She will need an updated echo and this cannot be done until Friday. She is currently on 2LNC and baseline is 2LNC PRN. She is no longer taking Eliquis and is not sure why- will restart. She denies CP, Abd pain N/V/D. 01/19/23 Pt sitting up in bed. She is feeling better but not back to baseline and has some continued SOB. HR controlled in a-fib. She will need and Echo and cardiology consult in AM Friday. ANDRE improving. She is eating and drinking well,will stop gentle hydration She explained she does not like to take meds and unsure about f/u with anyone other than Dr. Mando STANLEY. She may need qualified for home O2 if she needs it all the time. Her current oxygen regimen is 2L O2 PRN. She denies Cp, abd pain. N/V/D. - Review of Systems Constitutional: No Fever, No Chills Eyes: No Symptoms Ears, Nose, & Throat: No Symptoms Respiratory: Short Of Breath, No Cough Cardiac: No Chest Pain, No Edema, No Syncope Abdominal/Gastrointestinal: No Abdominal Pain, No Nausea, No Vomiting, No Diarrhea Genitourinary Symptoms: No Dysuria Musculoskeletal: No Back Pain, No Neck Pain Skin: No Rash Neurological: No Dizziness, No Focal Weakness, No Sensory Changes Psychological: No Symptoms Endocrine: No Symptoms Hematologic/Lymphatic: No Symptoms Immunological/Allergic: No Symptoms Objective Exam General Appearance: no apparent distress, alert Neurologic Exam: alert, oriented x 3, cooperative, normal mood/affect, nml cerebellar function, sensation nml, No motor deficits Skin Exam: normal color, warm, dry Eye Exam: PERRL, EOMI, eyes nml inspection Ears, Nose, Throat Exam: normal ENT inspection, pharynx normal, moist mucous membranes Neck Exam: normal inspection, non-tender, supple, full range of motion Respiratory Exam: normal breath sounds, lungs clear, crackles/rales (BLLL), No respiratory distress Cardiovascular Exam: regular rate/rhythm, normal heart sounds Gastrointestinal/Abdomen Exam: soft, No tenderness, No mass Extremity Exam: normal inspection, normal range of motion Back Exam: normal inspection, normal range of motion, No CVA tenderness, No vertebral tenderness Pelvic Exam: deferred Rectal Exam: deferred OBJECTIVE DATA Vital Signs: Vital Signs - 24 hr Temp Pulse Resp BP BP Pulse Ox 01/19/23 07:16 83 20 95 01/19/23 06:51 97.6 F 96 H 21 147/73 96 01/19/23 04:00 97.1 F 84 18 153/75 93 L 01/19/23 03:55 84 18 97 01/19/23 00:00 82 16 97 01/18/23 22:10 102 H 16 96 01/18/23 20:00 97.3 F 111 H 18 118/80 95 01/18/23 18:50 67 16 95 01/18/23 16:46 121 H 143/79 01/18/23 16:00 97.5 F 97 H 18 134/58 99 01/18/23 14:21 123 H 138/74 01/18/23 13:25 123 H 22 96 01/18/23 12:18 97.3 F 91 H 15 147/65 93 L 01/18/23 11:26 97 01/18/23 11:00 115 H 15 132/64 92 L Pain Assessment - Last Documented Pain Intensity 0 Intake and Output: Intake & Output 01/16/23 01/17/23 01/18/23 01/19/23 11:59 11:59 11:59 11:59 Intake Total 1200 Output Total 600 Balance 600 Weight 68.039 kg 63.9 kg Lab Results: Lab Results-Last 24 Hours 01/18/23 01/18/23 01/19/23 Range/Units 14:00 17:02 05:20 WBC (4.0-10.5) x10^3/uL RBC (4.1-5.4) x10^6/uL Hgb (12.0-16.0) g/dL Hct (35-47) % MCV (78-100) fL MCH (26-32) pg MCHC (32-36) g/dL RDW (11.5-14.0) % Plt Count (150-450) x10^3/uL MPV (7.5-11.0) fL Sodium (137-145) mmol/L Potassium (3.5-5.1) mmol/L Chloride (98-107) mmol/L Carbon Dioxide (22-30) mmol/L Anion Gap (5-15) MEQ/L BUN (7-17) mg/dL Creatinine (0.52-1.04) mg/dL Estimated GFR ML/MIN Glucose (74-106) mg/dL Calcium (8.4-10.2) mg/dL Total Bilirubin (0.2-1.3) mg/dL AST (14-36) U/L ALT (0-35) U/L Alkaline Phosphatase (38-126) U/L Troponin I < 0.012 < 0.012 (0.000-0.034) ng/mL Serum Total Protein (6.3-8.2) g/dL Albumin (3.5-5.0) g/dL Triglycerides 79 (30-150) mg/dL Cholesterol 116 (50-200) mg/dL LDL Cholesterol 54 (30-100) mg/dL HDL Cholesterol 52 (40-60) mg/dL Heart Disease Risk Ratio 2.2 TSH 3rd Generation 2.510 (0.47-4.68) mIU/L 01/19/23 01/19/23 Range/Units 05:20 05:20 WBC 7.7 (4.0-10.5) x10^3/uL RBC 5.60 H (4.1-5.4) x10^6/uL Hgb 13.3 (12.0-16.0) g/dL Hct 44.9 (35-47) % MCV 80.2 (78-100) fL MCH 23.8 L (26-32) pg MCHC 29.6 L (32-36) g/dL RDW 17.2 H (11.5-14.0) % Plt Count 180 (150-450) x10^3/uL MPV 11.6 H (7.5-11.0) fL Sodium 136 L (137-145) mmol/L Potassium 4.1 (3.5-5.1) mmol/L Chloride 99 (98-107) mmol/L Carbon Dioxide 31 H (22-30) mmol/L Anion Gap 10.0 (5-15) MEQ/L BUN 44 H (7-17) mg/dL Creatinine 1.18 H (0.52-1.04) mg/dL Estimated GFR 47.3 ML/MIN Glucose 165 H (74-106) mg/dL Calcium 9.1 (8.4-10.2) mg/dL Total Bilirubin 0.80 (0.2-1.3) mg/dL AST 28 (14-36) U/L ALT 23 (0-35) U/L Alkaline Phosphatase 149 H (38-126) U/L Troponin I (0.000-0.034) ng/mL Serum Total Protein 6.9 (6.3-8.2) g/dL Albumin 3.8 (3.5-5.0) g/dL Triglycerides (30-150) mg/dL Cholesterol (50-200) mg/dL LDL Cholesterol (30-100) mg/dL HDL Cholesterol (40-60) mg/dL Heart Disease Risk Ratio TSH 3rd Generation (0.47-4.68) mIU/L Radiology Exams: Radiology Procedures Category Date Time Status CHEST 1 VIEW (PORTABLE) Stat Exams 01/18/23 08:39 Completed Assessment/Plan (1) Atrial fibrillation with rapid ventricular response Current Visit: Yes Status: Acute Code(s): I48.91 - UNSPECIFIED ATRIAL FIBRILLATION (2) Elevated brain natriuretic peptide (BNP) level Current Visit: Yes Status: Acute Code(s): R79.89 - OTHER SPECIFIED ABNORMAL FINDINGS OF BLOOD CHEMISTRY (3) ANDRE (acute kidney injury) Current Visit: Yes Status: Acute Code(s): N17.9 - ACUTE KIDNEY FAILURE, UNSPECIFIED (4) COPD (chronic obstructive pulmonary disease) Current Visit: No Status: Acute (5) Hypertension Current Visit: No Status: Chronic Qualifiers: Hypertension type: primary hypertension Qualified Code(s): I10 - Essential (primary) hypertension Assessment & Plan: (1) Atrial fibrillation with rapid ventricular response Current Visit: Yes Status: Acute Assessment & Plan: - ASA, Statin, metoprolol, eliquis - Echo from 02/12/22 EF 45-50% - tele - TSH, lipid panel - Heart healthy diet - Chest XR - Cardiology consult and Echo Friday 01/19 - HR controlled- continued afib Code(s): I48.91 - UNSPECIFIED ATRIAL FIBRILLATION (2) Elevated brain natriuretic peptide (BNP) level Current Visit: Yes Status: Acute Assessment & Plan: - BNP 2049 - Lasix 40mg BID - 2LNC- baseline PRN Code(s): R79.89 - OTHER SPECIFIED ABNORMAL FINDINGS OF BLOOD CHEMISTRY (3) ANDRE (acute kidney injury) Current Visit: Yes Status: Acute Assessment & Plan: - Creat 1.25- baseline 0.84 - Gentle hydration at 50 ml/hr 01/19 - pt eating and drinking well- stop IV fluids -IVF stopped - Labs improving- trend Code(s): N17.9 - ACUTE KIDNEY FAILURE, UNSPECIFIED (4) COPD (chronic obstructive pulmonary disease) Current Visit: No Status: Acute Assessment & Plan: - stable - Continue home meds - 2LNC O2 PRN baseline - currently on 2LNC (5) Hypertension Current Visit: No Status: Chronic Qualifiers: Hypertension type: primary hypertension Qualified Code(s): I10 - Essential (primary) hypertension Assessment & Plan: - stable continue losartan - Start metoprolol 25mg BID VTE: Eliquis Code status: full Next of Kin: Michelle Arnold [phone] Code(s): I10 - ESSENTIAL (PRIMARY) HYPERTENSION Code(s): I10 - ESSENTIAL (PRIMARY) HYPERTENSION
[2023-01-19] MEDS: Lopressor 50 MG PO SCH ×2 (18:11→21:53)
[2023-01-19] MEDS ORDERED: VENTOLIN COMMON CANISTER IH PRN (19:26)
[2023-01-19] MEDS: ZOCOR 20MG PO SCH (21:43)
--- NOTE | 2023-01-20 05:33 | PCM.NOTE ---
Date and Time: 01/20/23 0531 Subjective Assessment: HPI: is a 77 year old female with PMHx of CHF, pacemaker/defib, CAD, HTN, Bronchitis, COPD, and OA. She came to [facility] today with complaints of shortness of breath for 3 to 4 days and a cough which has been present for 2 weeks. She feels all her sxs started with a cold and congestion that she is unable to cough up. She denies any fever she is a former smoker she does have COPD. She is on home O2 PRN and she rarely uses it. She does have a pacemaker/defibrillator which was implanted in March of this year. She does have frequent episodes of pneumonia and a history of CHF. She also has episodes of atrial fibrillation on several occasions prompting the pacemaker defibrillator placement. BNP is 2049 today- she was given Lasix in ER. Echo from 2021 shows she has an EF of 45-50%. She is in a-fib today and metoprolol gave in ER and will continue. She will need an updated echo and this cannot be done until Friday. She is currently on 2LNC and baseline is 2LNC PRN. She is no longer taking Eliquis and is not sure why- will restart. 01/20: Patient examined bedside. Endorses cough with clear sputum, and shortness of breath. At baseline oxygenation of 2L. Exp wheezing on auscultation. Still with AFIB/HR controlled. Plan is for ECHO and cardiology consult today. - Review of Systems Constitutional: No Symptoms Eyes: No Symptoms Ears, Nose, & Throat: No Symptoms Respiratory: Cough, Short Of Breath, Wheezing Cardiac: No Symptoms Abdominal/Gastrointestinal: No Symptoms Genitourinary Symptoms: No Symptoms Musculoskeletal: No Symptoms Skin: No Symptoms Neurological: No Symptoms Psychological: No Symptoms Endocrine: No Symptoms Hematologic/Lymphatic: No Symptoms Immunological/Allergic: No Symptoms Objective Exam General Appearance: mild distress Neurologic Exam: alert, oriented x 3, cooperative Skin Exam: pale Eye Exam: PERRL Ears, Nose, Throat Exam: normal ENT inspection Neck Exam: normal inspection Respiratory Exam: crackles/rales, wheezing Cardiovascular Exam: irregular (AFIB on tele, HR controlled) Gastrointestinal/Abdomen Exam: soft, normal bowel sounds Extremity Exam: normal inspection Back Exam: normal inspection Pelvic Exam: deferred OBJECTIVE DATA Vital Signs: Vital Signs - 24 hr Temp Pulse Resp BP Pulse Ox 01/20/23 04:00 96 F 92 H 16 95 01/20/23 00:00 98.2 F 79 16 130/60 99 01/19/23 23:06 80 20 95 01/19/23 22:00 97.3 F 91 H 16 119/59 97 01/19/23 19:30 98 H 20 91 L 01/19/23 18:06 143 H 152/63 01/19/23 16:02 93 H 18 95 01/19/23 16:00 97.6 F 102 H 18 135/61 96 01/19/23 11:39 97.9 F 79 16 127/56 94 L 01/19/23 11:11 124 H 16 93 L 01/19/23 07:16 83 20 95 01/19/23 06:51 97.6 F 96 H 21 147/73 96 Pain Assessment - Last Documented Pain Intensity 0 Intake and Output: Intake & Output 01/17/23 01/18/23 01/19/23 01/20/23 11:59 11:59 11:59 11:59 Intake Total 1200 1100 Output Total 600 300 Balance 600 800 Weight 68.039 kg 63.9 kg Lab Results: Lab Results-Last 24 Hours 01/19/23 01/19/23 01/19/23 Range/Units 05:20 05:20 05:20 WBC 7.7 (4.0-10.5) x10^3/uL RBC 5.60 H (4.1-5.4) x10^6/uL Hgb 13.3 (12.0-16.0) g/dL Hct 44.9 (35-47) % MCV 80.2 (78-100) fL MCH 23.8 L (26-32) pg MCHC 29.6 L (32-36) g/dL RDW 17.2 H (11.5-14.0) % Plt Count 180 (150-450) x10^3/uL MPV 11.6 H (7.5-11.0) fL Sodium 136 L (137-145) mmol/L Potassium 4.1 (3.5-5.1) mmol/L Chloride 99 (98-107) mmol/L Carbon Dioxide 31 H (22-30) mmol/L Anion Gap 10.0 (5-15) MEQ/L BUN 44 H (7-17) mg/dL Creatinine 1.18 H (0.52-1.04) mg/dL Estimated GFR 47.3 ML/MIN Glucose 165 H (74-106) mg/dL Calcium 9.1 (8.4-10.2) mg/dL Total Bilirubin 0.80 (0.2-1.3) mg/dL AST 28 (14-36) U/L ALT 23 (0-35) U/L Alkaline Phosphatase 149 H (38-126) U/L Serum Total Protein 6.9 (6.3-8.2) g/dL Albumin 3.8 (3.5-5.0) g/dL Triglycerides 79 (30-150) mg/dL Cholesterol 116 (50-200) mg/dL LDL Cholesterol 54 (30-100) mg/dL HDL Cholesterol 52 (40-60) mg/dL Heart Disease Risk Ratio 2.2 TSH 3rd Generation 2.510 (0.47-4.68) mIU/L Radiology Exams: Radiology Procedures Category Date Time Status CHEST 1 VIEW (PORTABLE) Stat Exams 01/18/23 08:39 Completed ECHO W/2D AND DOPPLER [US] Routine Exams 01/20/23 10:59 Ordered Assessment/Plan (1) Atrial fibrillation with rapid ventricular response Current Visit: Yes Status: Acute Assessment & Plan: (1) Atrial fibrillation with rapid ventricular response Current Visit: Yes Status: Acute Assessment & Plan: - ASA, Statin, metoprolol, eliquis - Echo from 02/12/22 EF 45-50% - tele - TSH, lipid panel - Heart healthy diet - Chest XR - Cardiology consult and Echo Friday 01/19 - HR controlled- continued afib Code(s): I48.91 - UNSPECIFIED ATRIAL FIBRILLATION 01/20: -HR controlled, continued AFIB, continue current management, cards consult pending, appreciate recs (2) Elevated brain natriuretic peptide (BNP) level Current Visit: Yes Status: Acute Assessment & Plan: - BNP 0 - Lasix 40mg BID - 2LNC- baseline PRN Code(s): R79.89 - OTHER SPECIFIED ABNORMAL FINDINGS OF BLOOD CHEMISTRY (3) ANDRE (acute kidney injury) Current Visit: Yes Status: Acute Assessment & Plan: - Creat 1.25- baseline 0.84 - Gentle hydration at 50 ml/hr 01/19 - pt eating and drinking well- stop IV fluids -IVF stopped - Labs improving- trend 01/20: -Labs continue to improve, will continue to monitor Code(s): N17.9 - ACUTE KIDNEY FAILURE, UNSPECIFIED (4) COPD (chronic obstructive pulmonary disease) Current Visit: No Status: Acute Assessment & Plan: - stable - Continue home meds - 2LNC O2 PRN baseline - currently on 2LNC (5) Hypertension Current Visit: No Status: Chronic Qualifiers: Hypertension type: primary hypertension Qualified Code(s): I10 - Essential (primary) hypertension Assessment & Plan: - stable continue losartan - Start metoprolol 25mg BID 01/20: -Stable VTE: Eliquis Code status: full Next of Kin: Michelle Arnold [phone] Code(s): I48.91 - UNSPECIFIED ATRIAL FIBRILLATION (2) ANDRE (acute kidney injury) Current Visit: Yes Status: Acute Code(s): N17.9 - ACUTE KIDNEY FAILURE, UNSPECIFIED (3) Elevated brain natriuretic peptide (BNP) level Current Visit: Yes Status: Acute Code(s): R79.89 - OTHER SPECIFIED ABNORMAL FINDINGS OF BLOOD CHEMISTRY (4) COPD (chronic obstructive pulmonary disease) Current Visit: No Status: Acute (5) Hypertension Current Visit: No Status: Chronic Qualifiers: Hypertension type: primary hypertension Qualified Code(s): I10 - Essential (primary) hypertension Code(s): I10 - ESSENTIAL (PRIMARY) HYPERTENSION
[2023-01-20 08:11] LABS: BASOPHIL % 1.2 % (0.0-0.4); Eosinophil % 4.9 % (0.00-5.0); Eosinophil (Absolute #) 0.42 x10^3/uL (0-0.5); Hemoglobin 14.5 g/dL (12.0-16.0); IMMATURE GRAN # 0.03 x10^3u/L (0.00-0.03); IMMATURE GRAN % 0.4 % (0.00-0.4); Lymphocytes % 21.2 % (24.0-44.0); Mean Cell Volume 81.4 fL (78-100); Mean Corpuscular Hemoglobin 24.1 pg (26-32); Mean Corpuscular Hgb Concent. 29.6 g/dL (32-36); Monocyte (Absolute #) 0.86 x10^3/uL (0.0-1.3); Monocytes % 10.1 % (0.0-12.0); Neutrophil % 62.2 % (36.0-66.0); Platelet Count 190 x10^3/uL (150-450); Red Blood Count 6.02 x10^6/uL (4.1-5.4); Red Cell Distribution Width 17.2 % (11.5-14.0); White Blood Count 8.5 x10^3/uL (4.0-10.5)
[2023-01-20 08:50] LABS: ALBUMIN 4.5 g/dL (3.5-5.0); ANION GAP 8.9 MEQ/L (5-15); BILIRUBIN,TOTAL 0.9 mg/dL (0.2-1.3); Calcium 9.6 mg/dL (8.4-10.2); Creatinine 1 1.09 mg/dL (0.52-1.04); EST GLOMERULAR FILTRATION RATE 51.9 ML/MIN; Potassium 4.1 mmol/L (3.5-5.1); Total Protein 8.5 g/dL (6.3-8.2)
[2023-01-20] MEDS: VENTOLIN COMMON CANISTER IH PRN ×4 (08:50→19:11)
[2023-01-20] MEDS: ELIQUIS 2.5 MG TABLET PO SCH ×2 (09:43→21:21)
[2023-01-20] MEDS: ECOTRIN 81 MG PO SCH (09:43)
[2023-01-20] MEDS: Klor Con PO SCH (09:44)
[2023-01-20] MEDS: Mucinex 600MG ER Tabs PO SCH ×2 (09:44→21:21)
[2023-01-20] MEDS: Lopressor 50 MG PO SCH ×2 (09:44→21:21)
[2023-01-20] MEDS: Aldactone 25 MG PO SCH (09:45)
[2023-01-20] MEDS: Cozaar 50 MG PO SCH (09:45)
[2023-01-20] MEDS: Lasix 40 MG/4 ML IV SCH ×2 (09:46→16:20)
[2023-01-20] MEDS: Cordarone 200 MG PO SCH ×2 (15:05→21:21)
[2023-01-20] MEDS ORDERED: DICLOFENAC SODIUM TP PRN (20:26)
[2023-01-20] MEDS: ZOCOR 20MG PO SCH (21:21)
[2023-01-21] MEDS: VENTOLIN COMMON CANISTER IH PRN ×6 (00:01→23:23)
[2023-01-21 04:38] LABS: BASOPHIL % 0.8 % (0.0-0.4); Basophil (Absolute #) 0.08 x10^3/uL (0-0.4); Eosinophil % 4.8 % (0.00-5.0); Eosinophil (Absolute #) 0.47 x10^3/uL (0-0.5); Hematocrit 44.1 % (35-47); IMMATURE GRAN # 0.04 x10^3u/L (0.00-0.03); IMMATURE GRAN % 0.4 % (0.00-0.4); Lymphocyte (Absolute #) 2.02 x10^3/uL (1.0-4.6); Lymphocytes % 20.7 % (24.0-44.0); Mean Cell Volume 81.5 fL (78-100); Mean Corpuscular Hgb Concent. 29.5 g/dL (32-36); Mean Platelet Volume 11.2 fL (7.5-11.0); Monocyte (Absolute #) 1.03 x10^3/uL (0.0-1.3); Monocytes % 10.6 % (0.0-12.0); Neutrophil % 62.7 % (36.0-66.0); Platelet Count 181 x10^3/uL (150-450); Red Blood Count 5.41 x10^6/uL (4.1-5.4); Red Cell Distribution Width 17.2 % (11.5-14.0); White Blood Count 9.7 x10^3/uL (4.0-10.5)
[2023-01-21 04:52] LABS: BILIRUBIN,TOTAL 0.7 mg/dL (0.2-1.3); Calcium 9.1 mg/dL (8.4-10.2); Creatinine 1 1.26 mg/dL (0.52-1.04); EST GLOMERULAR FILTRATION RATE 44.3 ML/MIN; Potassium 4.1 mmol/L (3.5-5.1); Total Protein 7.4 g/dL (6.3-8.2)
--- NOTE | 2023-01-21 05:13 | PCM.NOTE ---
Date and Time: 01/21/23510 Subjective Assessment: HPI: is a 77 year old female with PMHx of CHF, pacemaker/defib, CAD, HTN, Bronchitis, COPD, and OA. She came to [facility] today with complaints of shortness of breath for 3 to 4 days and a cough which has been present for 2 weeks. She feels all her sxs started with a cold and congestion that she is unable to cough up. She denies any fever she is a former smoker she does have COPD. She is on home O2 PRN and she rarely uses it. She does have a pacemaker/defibrillator which was implanted in March of this year. She does have frequent episodes of pneumonia and a history of CHF. She also has episodes of atrial fibrillation on several occasions prompting the pacemaker defibrillator placement. BNP is 2049 today- she was given Lasix in ER. Echo from 2021 shows she has an EF of 45-50%. She is in a-fib today and metoprolol gave in ER and will continue. She will need an updated echo and this cannot be done until Friday. She is currently on 2LNC and baseline is 2LNC PRN. She is no longer taking Eliquis and is not sure why- will restart. Cardiology consulted 01/20/23 with recommendations for amiodarone 400mg x 1 week, then 200mg daily there after. No changes to metoprolol. Cleared from cardiac standpoint with 1 week follow up. At that time EKG to be repeated, possible cardioversion if needed. 01/20: Patient examined bedside. Endorses cough with clear sputum, and shortness of breath. At baseline oxygenation of 2L. Exp wheezing on auscultation. Still with AFIB/HR controlled. Plan is for ECHO and cardiology consult today. 01/21/23: Met with patient bedside. Continues to endorse cough with clear sputum. At baseline oxygen. Discussed labs, worsening creat. Will hold lasix today, add steroid for wheezing. Denies fever, cp, abdominal pain, [place], dizziness, N/V/D. Possible DC tomorrow if HR controlled. OBJECTIVE DATA Vital Signs: Vital Signs - 24 hr Temp Pulse Resp BP Pulse Ox 01/21/23 00:01 73 18 93 L 01/20/23 22:52 96.8 F 74 16 102/52 93 L 01/20/23 19:11 71 20 95 01/20/23 19:08 96.9 F 100 H 15 91/60 96 01/20/23 16:26 114 H 18 97 01/20/23 16:00 97.5 F 117 H 18 125/62 97 01/20/23 11:24 97.3 F 107 H 18 122/60 90 L 01/20/23 08:54 97 H 18 97 01/20/23 07:52 97 H 18 97 01/20/23 07:09 97.3 F 97 H 18 137/63 97 Pain Assessment - Last Documented Pain Intensity 0 Intake and Output: Intake & Output 01/18/23 01/19/23 01/20/23 01/21/23 11:59 11:59 11:59 11:59 Intake Total 1200 1340 600 Output Total 600 300 200 Balance 600 1040 400 Weight 68.039 kg 63.9 kg Lab Results: Lab Results-Last 24 Hours 01/20/23 01/20/23 01/21/23 Range/Units 07:55 07:55 04:20 WBC 8.5 9.7 (4.0-10.5) x10^3/uL RBC 6.02 H 5.41 H (4.1-5.4) x10^6/uL Hgb 14.5 13.0 (12.0-16.0) g/dL Hct 49.0 H 44.1 (35-47) % MCV 81.4 81.5 (78-100) fL MCH 24.1 L 24.0 L (26-32) pg MCHC 29.6 L 29.5 L (32-36) g/dL RDW 17.2 H 17.2 H (11.5-14.0) % Plt Count 190 181 (150-450) x10^3/uL MPV 11.0 11.2 H (7.5-11.0) fL Gran % 62.2 62.7 (36.0-66.0) % Immature Gran % (Auto) 0.4 0.4 (0.00-0.4) % Nucleat RBC Rel Count 0.0 0.0 (0.00-0.1) % Eos # (Auto) 0.42 0.47 (0-0.5) x10^3/uL Immature Gran # (Auto) 0.03 0.04 H (0.00-0.03) x10^3u/L Absolute Lymphs (auto) 1.80 2.02 (1.0-4.6) x10^3/uL Absolute Monos (auto) 0.86 1.03 (0.0-1.3) x10^3/uL Absolute Nucleated RBC 0.00 0.00 (0.00-0.01) x10^3u/L Lymphocytes % 21.2 L 20.7 L (24.0-44.0) % Monocytes % 10.1 10.6 (0.0-12.0) % Eosinophils % 4.9 4.8 (0.00-5.0) % Basophils % 1.2 0.8 (0.0-0.4) % Absolute Granulocytes 5.30 6.10 (1.4-6.9) x10^3/uL Basophils # 0.10 0.08 (0-0.4) x10^3/uL Sodium 138 (137-145) mmol/L Potassium 4.1 (3.5-5.1) mmol/L Chloride 98 (98-107) mmol/L Carbon Dioxide 36 H (22-30) mmol/L Anion Gap 8.9 (5-15) MEQ/L BUN 45 H (7-17) mg/dL Creatinine 1.09 H (0.52-1.04) mg/dL Estimated GFR 51.9 ML/MIN Glucose 109 H (74-106) mg/dL Calcium 9.6 (8.4-10.2) mg/dL Total Bilirubin 0.90 (0.2-1.3) mg/dL AST 36 (14-36) U/L ALT 29 (0-35) U/L Alkaline Phosphatase 156 H (38-126) U/L Serum Total Protein 8.5 H (6.3-8.2) g/dL Albumin 4.5 (3.5-5.0) g/dL 01/21/23 Range/Units 04:20 WBC (4.0-10.5) x10^3/uL RBC (4.1-5.4) x10^6/uL Hgb (12.0-16.0) g/dL Hct (35-47) % MCV (78-100) fL MCH (26-32) pg MCHC (32-36) g/dL RDW (11.5-14.0) % Plt Count (150-450) x10^3/uL MPV (7.5-11.0) fL Gran % (36.0-66.0) % Immature Gran % (Auto) (0.00-0.4) % Nucleat RBC Rel Count (0.00-0.1) % Eos # (Auto) (0-0.5) x10^3/uL Immature Gran # (Auto) (0.00-0.03) x10^3u/L Absolute Lymphs (auto) (1.0-4.6) x10^3/uL Absolute Monos (auto) (0.0-1.3) x10^3/uL Absolute Nucleated RBC (0.00-0.01) x10^3u/L Lymphocytes % (24.0-44.0) % Monocytes % (0.0-12.0) % Eosinophils % (0.00-5.0) % Basophils % (0.0-0.4) % Absolute Granulocytes (1.4-6.9) x10^3/uL Basophils # (0-0.4) x10^3/uL Sodium 133 L (137-145) mmol/L Potassium 4.1 (3.5-5.1) mmol/L Chloride 95 L (98-107) mmol/L Carbon Dioxide 31 H (22-30) mmol/L Anion Gap 11.0 (5-15) MEQ/L BUN 54 H (7-17) mg/dL Creatinine 1.26 H (0.52-1.04) mg/dL Estimated GFR 44.3 ML/MIN Glucose 129 H (74-106) mg/dL Calcium 9.1 (8.4-10.2) mg/dL Total Bilirubin 0.70 (0.2-1.3) mg/dL AST 29 (14-36) U/L ALT 26 (0-35) U/L Alkaline Phosphatase 146 H (38-126) U/L Serum Total Protein 7.4 (6.3-8.2) g/dL Albumin 4.0 (3.5-5.0) g/dL Radiology Exams: Radiology Procedures Category Date Time Status ECHO W/2D AND DOPPLER [US] Routine Exams 10/30/23 10:59 Taken Multi-Disciplinary Progress Notes: Multi-Disciplinary Progress Notes 01/20/23 13:03 Case Management Note by Inna Burt S/W SHERON TO CHECK O2 ORDER- PATIENT HAS 24/7 O2 OXYGEN ORDERED ALREADY Initialized on 01/20/23 13:03 - END OF NOTE Assessment/Plan (1) Atrial fibrillation with rapid ventricular response Current Visit: Yes Status: Acute Assessment & Plan: (1) Atrial fibrillation with rapid ventricular response Current Visit: Yes Status: Acute Assessment & Plan: - ASA, Statin, metoprolol, eliquis - Echo from 02/12/22 EF 45-50% - tele - TSH, lipid panel - Heart healthy diet - Chest XR - Cardiology consult and Echo Friday 01/19 - HR controlled- continued afib Code(s): I48.91 - UNSPECIFIED ATRIAL FIBRILLATION 01/20: -HR controlled, continued AFIB, continue current management, cards consult pending, appreciate recs 01/21: -Cards consulted with recs for amiodarone, f/u in 1 week with repeat EKG and possible cardioversion if needed (2) Elevated brain natriuretic peptide (BNP) level Current Visit: Yes Status: Acute Assessment & Plan: - BNP 2050 - Lasix 40mg BID - 2LNC- baseline PRN Code(s): R79.89 - OTHER SPECIFIED ABNORMAL FINDINGS OF BLOOD CHEMISTRY (3) ANDRE (acute kidney injury) Current Visit: Yes Status: Acute Assessment & Plan: - Creat 1.25- baseline 0.84 - Gentle hydration at 50 ml/hr 01/19 - pt eating and drinking well- stop IV fluids -IVF stopped - Labs improving- trend 01/20: -Labs continue to improve, will continue to monitor 01/21: -creat worsening, hold lasix, gentle hydration Code(s): N17.9 - ACUTE KIDNEY FAILURE, UNSPECIFIED (4) COPD (chronic obstructive pulmonary disease) Current Visit: No Status: Acute Assessment & Plan: - stable - Continue home meds - 2LNC O2 PRN baseline - currently on 2LNC (5) Hypertension Current Visit: No Status: Chronic Qualifiers: Hypertension type: primary hypertension Qualified Code(s): I10 - Essential (primary) hypertension Assessment & Plan: - stable continue losartan - Start metoprolol 25mg BID 01/20: -Stable VTE: Eliquis Code status: full Next of Kin: Michelle Arnold [phone] Code(s): I48.91 - UNSPECIFIED ATRIAL FIBRILLATION (2) ANDRE (acute kidney injury) Current Visit: Yes Status: Acute Code(s): N17.9 - ACUTE KIDNEY FAILURE, UNSPECIFIED (3) Elevated brain natriuretic peptide (BNP) level Current Visit: Yes Status: Acute Code(s): R79.89 - OTHER SPECIFIED ABNORMAL FINDINGS OF BLOOD CHEMISTRY (4) COPD (chronic obstructive pulmonary disease) Current Visit: No Status: Acute (5) Hypertension Current Visit: No Status: Chronic Qualifiers: Hypertension type: primary hypertension Qualified Code(s): I10 - Essential (primary) hypertension Code(s): I10 - ESSENTIAL (PRIMARY) HYPERTENSION
[2023-01-21] MEDS: Sodium Chloride 0.9% 1000 ML 1,000 ML IV SCH (05:51)
[2023-01-21] MEDS: Cozaar 50 MG PO SCH (09:31)
[2023-01-21] MEDS: Klor Con PO SCH (09:32)
[2023-01-21] MEDS: ECOTRIN 81 MG PO SCH (09:32)
[2023-01-21] MEDS: Mucinex 600MG ER Tabs PO SCH ×2 (09:33→22:54)
[2023-01-21] MEDS: Lopressor 50 MG PO SCH ×2 (09:33→22:54)
[2023-01-21] MEDS: ELIQUIS 2.5 MG TABLET PO SCH ×2 (09:33→22:54)
[2023-01-21] MEDS: Aldactone 25 MG PO SCH (09:33)
[2023-01-21] MEDS: Cordarone 200 MG PO SCH ×2 (09:33→22:53)
[2023-01-21] MEDS: ZOCOR 20MG PO SCH (22:54)
[2023-01-22] MEDS: Sodium Chloride 0.9% 1000 ML 1,000 ML IV SCH (02:11)
[2023-01-22] MEDS: VENTOLIN COMMON CANISTER IH PRN ×3 (03:28→10:49)
[2023-01-22 03:43] VITALS: RESP 16
--- NOTE | 2023-01-22 05:13 | PCM.DS ---
Discharge Summary Date of Admission: 01/18/23 11:58 Date of Discharge: 01/22/23 Admitting Physician: JAVY SCHROEDER MD Consults: Consults on Case 01/19/23 10:59 Cardiology Consult [Notify Senior Media Director of Admit] ROUTINE Primary Care Provider: KALPESH JIMENEZ VIVIANE Allergies Allergies cortisone Allergy (Severe, Verified 01/18/23 08:46) swelling of lips zolpidem [From Ambien] Adverse Reaction (Severe, Verified 01/18/23 08:46) Confusion Hospital Summary - Hospital Course Hospital Course: HPI: is a 77 year old female with PMHx of CHF, pacemaker/defib, CAD, HTN, Bronchitis, COPD, and OA. She came to [facility] today with complaints of shortness of breath for 3 to 4 days and a cough which has been present for 2 weeks. She feels all her sxs started with a cold and congestion that she is unable to cough up. She denies any fever she is a former smoker she does have COPD. She is on home O2 PRN and she rarely uses it. She does have a pacemaker/defibrillator which was implanted in March of this year. She does have frequent episodes of pneumonia and a history of CHF. She also has episodes of atrial fibrillation on several occasions prompting the pacemaker defibrillator placement. BNP is 0 today- she was given Lasix in ER. Echo from 2021 shows she has an EF of 45-50%. She is in a-fib today and metoprolol gave in ER and will continue. She will need an updated echo and this cannot be done until Friday. She is currently on 2LNC and baseline is 2LNC PRN. She is no longer taking Eliquis and is not sure why- will restart. Patient is at baseline oxygenation, has home o2/nebs/inh. Cardiology consulted 01/20/23 with recommendations for amiodarone 400mg x 1 week, then 200mg daily there after. No changes to metoprolol. Cleared from cardiac standpoint with 1 week follow up. At that time EKG to be repeated, possible cardioversion if needed. New Diagnosis: AFIB RVR New Medications: Eliquis/amiodarone/metoprolol Follow Up: pcp/cardiology Latest Assessment & Plan (1) Atrial fibrillation with rapid ventricular response Current Visit: Yes Status: Acute Assessment & Plan: - ASA, Statin, metoprolol, eliquis - Echo from 02/12/22 EF 45-50% - tele - TSH, lipid panel - Heart healthy diet - Chest XR - Cardiology consult and Echo Friday 01/19 - HR controlled- continued afib Code(s): I48.91 - UNSPECIFIED ATRIAL FIBRILLATION 01/20: -HR controlled, continued AFIB, continue current management, cards consult pending, appreciate recs 01/21: -Cards consulted with recs for amiodarone, f/u in 1 week with repeat EKG and possible cardioversion if needed (2) Elevated brain natriuretic peptide (BNP) level Current Visit: Yes Status: Acute Assessment & Plan: - BNP 2049 - Lasix 40mg BID - 2LNC- baseline PRN Code(s): R79.89 - OTHER SPECIFIED ABNORMAL FINDINGS OF BLOOD CHEMISTRY (3) ANDRE (acute kidney injury) Current Visit: Yes Status: Acute Assessment & Plan: - Creat 1.25- baseline 0.84 - Gentle hydration at 50 ml/hr 01/19 - pt eating and drinking well- stop IV fluids -IVF stopped - Labs improving- trend 01/20: -Labs continue to improve, will continue to monitor 01/21: -creat worsening, hold lasix, gentle hydration Code(s): N17.9 - ACUTE KIDNEY FAILURE, UNSPECIFIED (4) COPD (chronic obstructive pulmonary disease) Current Visit: No Status: Acute Assessment & Plan: - stable - Continue home meds - 2LNC O2 PRN baseline - currently on 2LNC (5) Hypertension Current Visit: No Status: Chronic Qualifiers: Hypertension type: primary hypertension Qualified Code(s): I10 - Essential (primary) hypertension Assessment & Plan: - stable continue losartan - Start metoprolol 25mg BID 01/20: -Stable I spent 35 minutes [id number] with the patient on the day of discharge performing discharge exam, discussing hospital stay and discharge instructions with patient and caregivers, preparation of discharge records, prescriptions & referral forms and addressing any questions/concerns the patient had as documented above. - Vitals & Intake/Output Vital Signs: Vital Signs Temperature 97.6 F 01/22/23 00:00 Pulse Rate 73 01/22/23 03:28 Respiratory Rate 16 01/22/23 03:28 Blood Pressure 120/57 01/22/23 00:00 O2 Sat by Pulse Oximetry 95 01/22/23 03:28 Intake & Output: Intake & Output 01/19/23 01/20/23 01/21/23 01/22/23 11:59 11:59 11:59 11:59 Intake Total 1200 1340 1480 3571 Output Total 600 300 200 750 Balance 600 1040 1280 2821 Weight 63.9 kg - Lab Result Diagrams: 01/22/23 04:41 01/22/23 04:41 - Radiology Exams Ordered Rad Exams-Entire Visit: Radiology Procedures Category Date Time Status ECHO W/2D AND DOPPLER [US] Routine Exams 01/20/23 10:59 Taken - Procedures and Test Procedures and Tests throughout Hospitalization: Therapy Orders & Screens 01/18/23 12:45 RT Screen per Nursing Assess ONCE Comment: Protocol Order Physician Instructions: Greater than 3 points order RT Admission Screen Reason For Exam: Triggered on Admission Diagnosis: SOB Diagnosis: SOB Pneumonia: No Home O2: Yes Asthma: No CHF: Yes Home CPAP/BIPAP: No Home Nebs/MDI: Yes Total Points: 13 01/18/23 13:20 Respiratory Therapy Assessment DAILY Comment: Diagnosis: SOB 01/18/23 13:22 Oxygen Nasal Cannula 2 lpm Comment: Diagnosis: SOB Discharge Exam General Appearance: no apparent distress Neurologic Exam: alert, oriented x 3, cooperative Eye Exam: PERRL Ears, Nose, Throat Exam: normal ENT inspection Neck Exam: normal inspection Respiratory Exam: crackles/rales Cardiovascular Exam: irregular Gastrointestinal/Abdomen Exam: soft, normal bowel sounds Pelvic Exam: deferred Rectal Exam: deferred Back Exam: normal inspection Extremity Exam: normal inspection Skin Exam: pale Final Diagnosis/Problem List - Final Discharge Diagnosis/Problem (1) Atrial fibrillation with rapid ventricular response Current Visit: Yes Status: Chronic Code(s): I48.91 - UNSPECIFIED ATRIAL FIBRILLATION (2) ANDRE (acute kidney injury) Current Visit: Yes Status: Acute Code(s): N17.9 - ACUTE KIDNEY FAILURE, UNSPECIFIED (3) Elevated brain natriuretic peptide (BNP) level Current Visit: Yes Status: Acute Code(s): R79.89 - OTHER SPECIFIED ABNORMAL FINDINGS OF BLOOD CHEMISTRY (4) COPD (chronic obstructive pulmonary disease) Current Visit: No Status: Acute (5) Hypertension Current Visit: No Status: Chronic Code(s): I10 - ESSENTIAL (PRIMARY) HYPERTENSION - Discharge Disposition: Home, Self-Care Condition: Stable Prescriptions: New Amiodarone HCl 200 mg [Cordarone 200 MG] 200 mg PO DAILY 30 Days #30 tablet Amiodarone HCl 200 mg [Cordarone 200 MG] 400 mg PO BID 6 Days #24 tablet Aspirin EC 81 mg [Ecotrin 81 mg] 81 mg PO DAILY 30 Days #30 tablet Apixaban [Eliquis 2.5 mg Tablet] 5 mg PO BID 30 Days #120 tablet Metoprolol Tartrate 50 mg [Lopressor 50 MG] 50 mg PO BID 30 Days #60 tablet Continue Furosemide 20 mg [Lasix 20 mg] 40 mg PO DAILY Albuterol Common Canister [Ventolin Common Canister] 1 puff IH DAILY PRN PRN PRN Reason: Shortness Of Breath/Wheezing Albuterol/Ipratropium 3ml Neb* [DUONEB 0.5-3 MG/3 ml Neb] 3 ml IH Q4-6HPRN PRN PRN Reason: Shortness Of Breath/Wheezing Spironolactone 25 mg [Aldactone 25 MG] 25 mg PO DAILY Atorvastatin Calcium 20 mg PO DAILY Potassium Chloride 1 ea DAILY Losartan Potassium 25 mg PO DAILY Instructions: Atrial Fibrillation (DC), Apixaban, Amiodarone, Metoprolol Follow up with: KALPESH JIMENEZ MD [Primary Care Provider] - 01/29/23 10:45 am Nacho Maki MD [CONSULTING PHYSICIAN] - 1 Week Forms: Discharge Instructions
[2023-01-22 05:14] LABS: Absolute Neutrophil Ct (ANC) 5.01 x10^3/uL (1.4-6.9); BASOPHIL % 0.7 % (0.0-0.4); Basophil (Absolute #) 0.06 x10^3/uL (0-0.4); Eosinophil % 5.1 % (0.00-5.0); Eosinophil (Absolute #) 0.41 x10^3/uL (0-0.5); Hematocrit 40.9 % (35-47); Hemoglobin 12.2 g/dL (12.0-16.0); IMMATURE GRAN # 0.04 x10^3u/L (0.00-0.03); IMMATURE GRAN % 0.5 % (0.00-0.4); Lymphocyte (Absolute #) 1.66 x10^3/uL (1.0-4.6); Lymphocytes % 20.7 % (24.0-44.0); Mean Corpuscular Hemoglobin 24.4 pg (26-32); Mean Corpuscular Hgb Concent. 29.8 g/dL (32-36); Mean Platelet Volume 10.9 fL (7.5-11.0); Monocyte (Absolute #) 0.84 x10^3/uL (0.0-1.3); Monocytes % 10.5 % (0.0-12.0); Neutrophil % 62.5 % (36.0-66.0); Platelet Count 156 x10^3/uL (150-450); Red Blood Count 4.99 x10^6/uL (4.1-5.4); Red Cell Distribution Width 17.3 % (11.5-14.0)
[2023-01-22 05:37] LABS: ALBUMIN 3.8 g/dL (3.5-5.0); ANION GAP 11.7 MEQ/L (5-15); BILIRUBIN,TOTAL 0.5 mg/dL (0.2-1.3); Calcium 8.8 mg/dL (8.4-10.2); Creatinine 1 0.99 mg/dL (0.52-1.04); EST GLOMERULAR FILTRATION RATE 59.1 ML/MIN; Potassium 4.4 mmol/L (3.5-5.1)
[2023-01-22 07:10] VITALS: BP 138/63; TEMP 96.9; O2SAT 95
[2023-01-22] MEDS: Aldactone 25 MG PO SCH (09:40)
[2023-01-22] MEDS: Lopressor 50 MG PO SCH (09:40)
[2023-01-22] MEDS: Klor Con PO SCH (09:40)
[2023-01-22] MEDS: Mucinex 600MG ER Tabs PO SCH (09:40)
[2023-01-22] MEDS: Cozaar 50 MG PO SCH (09:40)
[2023-01-22] MEDS: ECOTRIN 81 MG PO SCH (09:40)
[2023-01-22] MEDS: Cordarone 200 MG PO SCH (09:40)
[2023-01-22] MEDS: Lasix 40 MG/4 ML IV SCH (09:41)
[2023-01-22] MEDS: ELIQUIS 2.5 MG TABLET PO SCH (09:41)
[2023-01-22 10:53] VITALS: PULSE 84
[2023-01-27] MEDS ORDERED: Cordarone 200 MG PO SCH ×2 (10:00)
== END 2023-01-22 11:55 | disposition home or self-care (01) ==
LOC: ED 08:31 → MED SURG 11:58
PROVIDERS: ADMIT Internal Medicine; ATTEND Internal Medicine
DX: I48.20 Chronic atrial fibrillation, unspecified (principal); I11.0 Hypertensive heart disease with heart failure; I50.9 Heart failure, unspecified; I25.10 Atherosclerotic heart disease of native coronary artery without angina pectoris; N17.9 Acute kidney failure, unspecified; J44.9 Chronic obstructive pulmonary disease, unspecified; R79.89 Other specified abnormal findings of blood chemistry; Z95.0 Presence of cardiac pacemaker; Z87.891 Personal history of nicotine dependence; Z79.01 Long term (current) use of anticoagulants; Z79.899 Other long term (current) drug therapy; Z20.828 Contact with and (suspected) exposure to other viral communicable diseases
CPT/HCPCS: 0241U; 36000; 36415; 71045; 80053; 80061; 81001; 83605; 83721; 83735; 83880; 84145; 84443; 84484; 85025; 85027; 85379; 85610; 85730; 93005; 93306; 94640; 94762; 96374; 96375; 96376; 99285; 99291; Q3014; J1940; Q0162; A9270-GY

== ENCOUNTER 2023-02-14 20:04 | Emergency (ER) | payer MEDICARE ==
--- NOTE | 2023-02-14 20:20 | ERPHSYRPT ---
- History of Present Illness Time Seen by Provider: 02/14/23 20:15 Source: patient, EMS Exam Limitations: clinical condition Physician History: pt taken by EMS for rapid HR 140s /SOBreath given 20 cardizem en route and blocked down to paced rythym. In er Flutter with 4 to 1 block. Temp does not register trying spann temp. Plan to contact [facility] for a fib needing admission, Had pacer placed at [facility] and will consult them Independent Hx source in ER was EMS. Discussed with pt risks/benefits of cardiac enzymes CBC CMP, Thyroid, CXR O2 , Transport to [facility] ( if accepted) and she agrees - ordered labs and consults. Results discussed. Timing/Duration: today Activities at Onset: none Quality: other (no reported pain ) Chest Pain Radiation: no radiation Severity of Pain-Max: none Severity of Pain-Current: none Modifying Factors: Improves With: nothing Nitro Today/Relief: no nitro taken today Aspirin Treatment Today: unknown Prior Chest Pain/Cardiac Workup: recently seen/treated Allergies/Adverse Reactions: cortisone Allergy (Severe, Verified 02/14/23 20:13) swelling of lips zolpidem [From Ambien] Adverse Reaction (Severe, Verified 02/14/23 20:13) Confusion Home Medications: Albuterol Common Canister [Ventolin Common Canister] 1 puff IH DAILY PRN PRN 09/29/18 [History] Albuterol/Ipratropium 3ml Neb* [DUONEB 0.5-3 MG/3 ml Neb] 3 ml IH Q4-6HPRN PRN 09/29/18 [History] Furosemide 20 mg [Lasix 20 mg] 40 mg PO DAILY 09/29/18 [History] Atorvastatin Calcium 20 mg PO DAILY 01/18/23 [History] Losartan Potassium 25 mg PO DAILY 01/18/23 [History] Potassium Chloride 1 ea DAILY 01/18/23 [History] Spironolactone 25 mg [Aldactone 25 MG] 25 mg PO DAILY 01/18/23 [History] Hx Tetanus, Diphtheria Vaccination/Date Given: Yes Hx Influenza Vaccination/Date Given: No Hx Pneumococcal Vaccination/Date Given: Yes Travel Risk - Vaccine Status Have you recieved a Covid-19 vaccination: No Rn Concurrent Review: Unknown - Vaccination Dates Date of 2cond Vaccination (if applicable): 2020 Dates if Unknown: ? - Review of Systems Constitutional: No Fever, No Chills Eyes: No Symptoms Ears, Nose, & Throat: No Symptoms Respiratory: Dyspnea, No Cough Cardiac: No Chest Pain, No Edema, No Syncope Abdominal/Gastrointestinal: No Abdominal Pain, No Nausea, No Vomiting, No Diarrhea Genitourinary Symptoms: No Dysuria Musculoskeletal: No Back Pain, No Neck Pain Skin: No Rash Neurological: No Dizziness, No Focal Weakness, No Sensory Changes Psychological: No Symptoms Endocrine: No Symptoms Hematologic/Lymphatic: No Symptoms Immunological/Allergic: No Symptoms All Other Systems: Reviewed and Negative - Past Medical History Pertinent Past Medical History: Yes Neurological History: No Pertinent History ENT History: No Pertinent History Cardiac History: Arrhythmia, Congestive Heart Failure, Coronary Artery Disease, Hypertension Respiratory History: Bronchitis, CHF, COPD Endocrine Medical History: No Pertinent History Musculoskeletal History: No Pertinent History GI Medical History: No Pertinent History History: No Pertinent History Psycho-Social History: No Pertinent History Female Reproductive Disorders: No Pertinent History Other Medical History: myopathy - Past Surgical History Past Surgical History: Yes Neuro Surgical History: No Pertinent History Cardiac: Pacemaker Respiratory: No Pertinent History, Chest Surgery Gastrointestinal: No Pertinent History Genitourinary: No Pertinent History Musculoskeletal: No Pertinent History Female Surgical History: Tubal Ligation Other Surgical History: MASTOID OPERATION - Social History Smoking Status: Former smoker How long have you smoked: 3 MONTHS Exposure to second hand smoke: No Alcohol Use: None Drug Use: none Patient Lives Alone: Yes Significant Family History: heart disease, hypertension - Nursing Vital Signs Nursing Vital Signs: Initial Vital Signs Temperature 85.6 F 02/14/23 20:13 Pulse Rate 78 02/14/23 20:13 Respiratory Rate 22 02/14/23 20:13 Blood Pressure 154/78 02/14/23 20:13 O2 Sat by Pulse Oximetry 100 02/14/23 20:13 Pain Scale Pain Intensity 0 - Physical Exam General Appearance: moderate distress, alert, lethargy Eye Exam: PERRL/EOMI, eyes nml inspection Ears, Nose, Throat Exam: normal ENT inspection, moist mucous membranes Neck Exam: normal inspection, non-tender, supple Respiratory Exam: normal breath sounds, lungs clear, No respiratory distress Cardiovascular Exam: regular rate/rhythm, normal heart sounds, No edema Gastrointestinal/Abdomen Exam: soft, No tenderness, No mass Pelvic Exam: deferred Rectal Exam: deferred Back Exam: normal inspection, No CVA tenderness, No vertebral tenderness Extremity Exam: normal inspection, normal range of motion Neurologic Exam: oriented x 3, cooperative, carpenter mold II-XII nml as tested, normal mood/affect, nml cerebellar function, sensation nml, other (weak/lethargic), No motor deficits Skin Exam: normal color, warm, dry Lymphatic Exam: No adenopathy SpO2: 100 O2 Delivery: Non-rebreather - Course Nursing assessment & vital signs reviewed: Yes EKG Interpreted by Me: Non-specific ST Changes, Other (A flutter 4 to 1 ) Ordered Tests: Active Orders 24 hr Category Date Time Status Sales Ledger Administrator STAT Care 02/14/23 20:25 Active EKG-ER Only STAT Care 02/14/23 20:24 Active Spann [Catheter-[place] Spann] STAT Care 02/14/23 20:55 Active IV Insertion STAT Care 02/14/23 20:24 Active Pulse Oximetry (ED) STAT Care 02/14/23 20:24 Active CHEST WITH CONTRAST [CT] Stat Exams 02/14/23 20:25 Ordered CBC W DIFF Stat Lab 02/14/23 20:45 Completed CMP Stat Lab 02/14/23 20:45 Received CULTURE,URINE Stat Lab 02/14/23 20:57 Received Lactic Acid Stat Lab 02/14/23 20:24 Ordered NT PRO BNPII Stat Lab 02/14/23 20:45 Received T4 (Thyroxine) Stat Lab 02/14/23 20:45 Received TROPONIN Q4H Lab 02/14/23 20:45 Received TROPONIN Q4H Lab 02/15/23 00:30 Ordered TROPONIN Q4H Lab 02/15/23 04:30 Ordered TSH, 3RD Generation Stat Lab 02/14/23 20:45 Received UA W/RFX UR CULTURE Stat Lab 02/14/23 20:57 Completed Medication Summary Generic Name Dose Route Start Last Admin Trade Name Freq PRN Reason Stop Dose Admin Sodium Chloride 1,000 mls @ 100 mls/hr 02/14/23 20:30 02/14/23 20:36 Sodium Chloride 0.9% 1000 Ml IV 03/16/23 20:29 100 mls/hr .Q10H SANTOSH Administration Lab/Rad Data: Laboratory Result Diagrams 02/14/23 20:45 Laboratory Results 02/14/23 02/14/23 Range/Units 20:57 20:45 WBC 16.1 H (4.0-10.5) x10^3/uL RBC 5.46 H (4.1-5.4) x10^6/uL Hgb 13.1 (12.0-16.0) g/dL Hct 45.5 (35-47) % MCV 83.3 (78-100) fL MCH 24.0 L (26-32) pg MCHC 28.8 L (32-36) g/dL RDW 17.2 H (11.5-14.0) % Plt Count 260 (150-450) x10^3/uL MPV 10.9 (7.5-11.0) fL Gran % 60.2 (36.0-66.0) % Immature Gran % (Auto) 0.6 H (0.00-0.4) % Nucleat RBC Rel Count 0.0 (0.00-0.1) % Eos # (Auto) 1.20 H (0-0.5) x10^3/uL Immature Gran # (Auto) 0.09 H (0.00-0.03) x10^3u/L Absolute Lymphs (auto) 3.75 (1.0-4.6) x10^3/uL Absolute Monos (auto) 1.24 (0.0-1.3) x10^3/uL Absolute Nucleated RBC 0.00 (0.00-0.01) x10^3u/L Lymphocytes % 23.2 L (24.0-44.0) % Monocytes % 7.7 (0.0-12.0) % Eosinophils % 7.4 H (0.00-5.0) % Basophils % 0.9 (0.0-0.4) % Absolute Granulocytes 9.70 H (1.4-6.9) x10^3/uL Basophils # 0.15 (0-0.4) x10^3/uL Urine Color Yellow (Yellow) Urine Appearance Clear (Clear) Urine pH 6.5 (4.6-8.0) Ur Specific [place] 1.010 (1.005-1.030) Urine Protein Negative (Negative) Urine Glucose (UA) Negative (Negative) mg/dL Urine Ketones Negative (Negative) Urine Blood Negative (Negative) Urine Nitrite Negative (Negative) Urine Bilirubin Negative (Negative) Urine Urobilinogen 0.2 (0.2) mg/dL Ur Leukocyte Esterase Negative (Negative) U Hyaline Cast (Auto) 3-5 A (0-2) /LPF Urine Microscopic RBC 0-2 (0-5) /HPF Urine Microscopic WBC 0-2 (0-5) /HPF Ur Epithelial Cells None Seen (None Seen) /HPF Urine Bacteria None Seen (None Seen) /HPF Urine Culture Reflexed ORDERED SEPARATELY (NO) - Progress Progress: improved, re-examined Air Movement: good Progress Note: 02/14/23 21:[address] Vann speedboat driver and Dr. Barkley Hospitalist and [facility] further eval. pt also agrees after discussion of risks/benefits. . Blood Culture(s) Obtained: No Antibiotics given: No Discussed with Dr.: Other (Dr.s Barkley and Soo) Will see patient in: ED Counseled pt/family regarding: lab results, diagnosis, need for follow-up, rad results Medical Desision Making - Independent Historian Additional History obtained from: EMS - Discussion of managment Care discussed with:: specialist Reviewed:: Test results, Need for additional workup Agreed on:: Treatment plan, need for follow-up, decision to admit Will see patient: in ED - Diagnostic Testing Diagnostic test were ordered, analyzed, and reviewed by me: Yes Radiological Interpretation: Interpreted by me, Reviewed by me - Risk of complications The pt has a high risk of morbidity or mortality based on: Decision regarding ho spitilization or escalation of hosp level of care - Departure Departure Disposition: Transfer Clinical Impression: COPD (chronic obstructive pulmonary disease), Atrial fibrillation with rapid ventricular response, A flutter with 4:1 block, transient hypothermia Condition: Good Critical Care Time: Yes Critical Care Time(excluding separately billable procedures): Critical 30-74 mins (stabiziing and arranging consult/transport due to critical arrythmia.) Referrals: KALPESH JIMENEZ MD [Primary Care Provider] - Follow up/PCP as directed Instructions: Chronic Obstructive Pulmonary Disease
[2023-02-14] MEDS ORDERED: Sodium Chloride 0.9% 1000 ML 1,000 ML IV SCH (20:30)
[2023-02-14] MEDS ORDERED: Sodium Chloride 0.9% 1000 ML 1,000 ML ONE (20:34)
[2023-02-14 20:45] VITALS: TEMP 85.6
[2023-02-14 20:55] LABS: BASOPHIL % 0.9 % (0.0-0.4); Basophil (Absolute #) 0.15 x10^3/uL (0-0.4); Eosinophil % 7.4 % (0.00-5.0); Hematocrit 45.5 % (35-47); Hemoglobin 13.1 g/dL (12.0-16.0); IMMATURE GRAN # 0.09 x10^3u/L (0.00-0.03); IMMATURE GRAN % 0.6 % (0.00-0.4); Lymphocyte (Absolute #) 3.75 x10^3/uL (1.0-4.6); Lymphocytes % 23.2 % (24.0-44.0); Mean Cell Volume 83.3 fL (78-100); Mean Corpuscular Hgb Concent. 28.8 g/dL (32-36); Mean Platelet Volume 10.9 fL (7.5-11.0); Monocyte (Absolute #) 1.24 x10^3/uL (0.0-1.3); Monocytes % 7.7 % (0.0-12.0); Neutrophil % 60.2 % (36.0-66.0); Platelet Count 260 x10^3/uL (150-450); Red Blood Count 5.46 x10^6/uL (4.1-5.4); Red Cell Distribution Width 17.2 % (11.5-14.0); White Blood Count 16.1 x10^3/uL (4.0-10.5)
[2023-02-14 21:09] LABS: Appearance Clear (Clear); Bacteria None Seen /HPF (None Seen); Bilirubin Negative (Negative); Blood Negative (Negative); Epithelial Cells None Seen /HPF (None Seen); Glucose, Urine Negative (Negative); Ketones Negative (Negative); Leukocyte Esterase Negative (Negative); Nitrite Negative (Negative); Ph 6.5 (4.6-8.0); Protein,Urine Dip Negative (Negative); RBC 0-2 /HPF (0-5); Urobilinogen 0.2 mg/dL (0.2); WBC 0-2 /HPF (0-5)
[2023-02-14 21:10] LABS: ADD URINE CULTURE? ORDERED SEPARATELY (NO)
[2023-02-14 21:16] VITALS: O2SAT 100
[2023-02-14 21:17] LABS: NT PRO BNPII 3070 pg/mL (<300); TROPONIN < 0.012 ng/mL (0.000-0.034)
[2023-02-14 21:28] LABS: Slide Review 1 YES
[2023-02-14 21:37] LABS: ALBUMIN 4.6 g/dL (3.5-5.0); ANION GAP 18.5 MEQ/L (5-15); BILIRUBIN,TOTAL 0.6 mg/dL (0.2-1.3); Calcium 9.5 mg/dL (8.4-10.2); Creatinine 1 1.42 mg/dL (0.52-1.04); EST GLOMERULAR FILTRATION RATE 38.3 ML/MIN; Potassium 5.6 mmol/L (3.5-5.1); T4 (Thyroxine) 8.04 ug/dL (5.53-10.96); TSH, 3RD Generation 11.9 mIU/L (0.47-4.68); Total Protein 8.3 g/dL (6.3-8.2)
[2023-02-14 21:56] VITALS: BP 140/87; PULSE 89; RESP 20
--- NOTE | 2023-02-14 22:21 | XRAY ---
Indication: Short of breath. Comparison: January 18, 2023 Portable chest again hyperinflated with new diffuse bilateral hazy interstitial alveolar opacities greatest in both lung bases. No consolidation/large effusion. Heart not enlarged again with left pacemaker. Bony thorax intact again with osteopenia and degenerative changes.
== END 2023-02-14 21:55 | disposition short-term general hospital (02) ==
LOC: ED 20:04
DX: J44.9 Chronic obstructive pulmonary disease, unspecified (principal); I48.20 Chronic atrial fibrillation, unspecified; I48.92 Unspecified atrial flutter; T68.XXXA Hypothermia, initial encounter; I45.5 Other specified heart block; I11.0 Hypertensive heart disease with heart failure; I50.9 Heart failure, unspecified; Z79.899 Other long term (current) drug therapy
CPT/HCPCS: 36000; 36415; 51702; 71045; 80053; 81001; 83605; 83880; 84436; 84443; 84484; 85025; 87086; 93005; 93041; 94760; 99285; 99291